=== PATIENT | male | born 1970 | race Caucasian/White ===

== ENCOUNTER → 2016-09-11 | Outpatient (CLI) | payer OTHER ==
[2015-07-30 17:35] VITALS: BP 144/80
[~2016-09-11] MED LIST: ASPI-482 PO; EMPA10TA PO; INSU100C4 SQ; INSU100V13 SQ; LEVO25TA2 PO; LOSA1TAB18 PO; OXYC-244 PO; SENN1TAB70 PO
[2016-09-11 15:33] LABS: HEMATOCRIT 50.8 % (39.0-53.0); HEMOGLOBIN 16.6 g/dL (13.0-17.5)
[2016-09-11 15:51] LABS: ALBUMIN 3.5 g/dL (3.4-5.0); CALCIUM 8.9 mg/dL (8.5-10.1); GFR 36.1; PHOSPHORUS 3.6 mg/dL (2.6-4.7); POTASSIUM 4.5 mmol/L (3.5-5.1)
[2016-09-12 07:28] LABS: PTH INTACT 107 pg/mL (15-65)
== END | disposition home or self-care (01) ==
LOC: LAB 15:05
PROVIDERS: ATTEND Nurse Practitioner Family
DX: I12.9 Hypertensive chronic kidney disease with stage 1 through stage 4 chronic kidney disease, or unspecified chronic kidney disease (principal); N18.3 Chronic kidney disease, stage 3 (moderate); E11.29 Type 2 diabetes mellitus with other diabetic kidney complication; R80.9 Proteinuria, unspecified; Z68.33 Body mass index [BMI] 33.0-33.9, adult
CPT/HCPCS: 36415; 80069; 83735; 83970; 85014; 85018

== ENCOUNTER → 2016-09-20 | Outpatient (CLI) | payer OTHER ==
[2015-07-30 17:35] VITALS: BP 144/80
[~2016-09-20] MED LIST changes: -LEVO25TA2 PO; +LEVO25TA55 PO
[2016-09-22 03:20] LABS: TOTAL SERUM CREATININE 1.52 mg/dL (0.76-1.27); TOTAL URINE CREATININE 56.5 mg/dL (Not Estab.)
== END | disposition home or self-care (01) ==
LOC: SPEC 15:58
PROVIDERS: ATTEND Nurse Practitioner Family
DX: I12.9 Hypertensive chronic kidney disease with stage 1 through stage 4 chronic kidney disease, or unspecified chronic kidney disease (principal); N18.3 Chronic kidney disease, stage 3 (moderate); E11.29 Type 2 diabetes mellitus with other diabetic kidney complication; R80.9 Proteinuria, unspecified; Z68.33 Body mass index [BMI] 33.0-33.9, adult
CPT/HCPCS: 36415; 82575; 84156

== ENCOUNTER → 2016-10-02 | Outpatient (CLI) | payer OTHER ==
[2015-07-30 17:35] VITALS: BP 144/80
--- NOTE | 2016-10-02 14:12 | KCIC ---
PROCEDURE Three-view left knee HISTORY Left knee pain intermittently for several months. Pain is medial. COMPARISON None FINDINGS Joint spaces are intact. No acute fracture or bone destruction. Vascular calcifications are noted. Patellar enthesophytes are incidentally noted. IMPRESSION No acute fracture or dislocation. Electronically signed by: Alejandro Centeno MD (October 02, 2016 14:10:49)
== END | disposition home or self-care (01) ==
LOC: KCIC 12:24
PROVIDERS: ATTEND Family Medicine
DX: M25.562 Pain in left knee (principal)
CPT/HCPCS: 73562

== ENCOUNTER → 2016-10-13 | Outpatient (CLI) | payer OTHER ==
[2015-07-30 17:35] VITALS: BP 144/80
--- NOTE | 2016-10-13 17:08 | KCIC ---
MRI left knee without contrast dated 10/13/2016 4:15 PM Indication: Left knee pain , pain on and off for several months pain anteromedial, pain Comparison: No comparison is available. Technique: Routine multiplanar multisequence imaging performed. No contrast administered. Findings: Bone marrow signal is homogeneous. No marrow edema. Articular cartilage is intact. No osteochondral defect. Mild tricompartmental hypertrophic changes. Small joint effusion. No intra-articular loose body. Small popliteal cyst with fluid bright T2 signal tracking along the margin of the medial head gastrocnemius muscle. Anterior cruciate and posterior cruciate ligaments are intact. Medial and lateral collateral complexes are intact. Iliotibial band, popliteus tendon and pes anserine complex within normal limits. Quadriceps and patellar tendon are intact. There is patchy prepatellar and superficial infrapatellar edema. There is also a small prepatellar bursal fluid collection that measures about 11 mm maximum dimension. Mild edema within the marrow of the medial patella. No abnormality of the medial or lateral retinaculum. Lateral meniscus is normal in morphology and signal. There is blunted morphology of the medial meniscal body and medial meniscal root. No articular surface tear or perimeniscal cyst. IMPRESSION: 1. Bone marrow edema of the patella with prepatellar and superficial infrapatellar edema and small prepatellar bursal fluid collection, nonspecific. This could be infectious or inflammatory or related to prior trauma. Recommend clinical correlation. 2. Mild patellar tendinosis. 3. Blunted morphology of the medial meniscal body and medial meniscal root, consistent with early free edge degenerative fraying. No articular surface meniscal tear. 4. Mild tricompartmental degenerative arthrosis. 5. Small joint effusion and small ruptured popliteal cyst. Electronically signed by: Alejandro Fink MD (10/13/2016 5:05 PM)
== END | disposition home or self-care (01) ==
LOC: KCIC MRI 15:56
PROVIDERS: ATTEND Family Medicine
DX: M71.22 Synovial cyst of popliteal space [Baker], left knee (principal); M25.462 Effusion, left knee; R60.9 Edema, unspecified
CPT/HCPCS: 73721

== ENCOUNTER 2020-03-27 19:17 | Inpatient (IN) | payer OTHER ==
[~2020-03-27] VITALS: Ht 180.3 cm; Wt 94.2 kg
[~2020-03-27 19:17] MED LIST changes: -LOSA1TAB18 PO; +LOSA1TAB25 PO; -OXYC-244 PO; +OXYC1TAB19 PO
[2020-03-27] MEDS ORDERED: HYDROcodone/APAP 5/325MG 1 TAB TABLET PO ONE (23:15)
[2020-03-27 23:20] LABS: BASO # 0.1 x10^3/uL (0.0-0.2); BASO % 1 % (0-3); EOS # 0.5 x10^3/uL (0.0-0.7); EOS % 5 % (0-3); HEMATOCRIT 50.3 % (39.0-53.0); HEMOGLOBIN 16.5 g/dL (13.0-17.5); LYMPH # 1.7 x10^3/uL (1.0-4.8); LYMPH % 17 % (24-48); MEAN CORPUSCULAR HEMOGLOBIN 29 pg (25-35); MEAN CORPUSCULAR HGB CONC 33 g/dL (31-37); MEAN CORPUSCULAR VOLUME 87 fL (79-100); MONO # 0.6 x10^3/uL (0.0-1.1); MONO % 6 % (0-9); NEUT # 7.4 x10^3/uL (1.8-7.7); NEUT % 71 % (31-73); PLATELET COUNT 300 x10^3/uL (140-400); RED BLOOD COUNT 5.76 x10^6/uL (4.30-5.70); RED CELL DISTRIBUTION WIDTH 17.2 % (11.5-14.5); WHITE BLOOD COUNT 10.4 x10^3/uL (4.0-11.0)
[2020-03-28] VITALS (13 sets, daily range): BP systolic 128–171; BP diastolic 65–109
[2020-03-28 00:01] LABS: ALBUMIN 3.4 g/dL (3.4-5.0); ALBUMIN/GLOBULIN RATIO 0.7 (1.0-1.7); CALCIUM 8.8 mg/dL (8.5-10.1); CREATININE 1.8 mg/dL (0.7-1.3); GFR 40.1; TOTAL BILIRUBIN 0.4 mg/dL (0.2-1.0); TOTAL PROTEIN 8.5 g/dL (6.4-8.2)
[2020-03-28 00:03] LABS: POTASSIUM 6.5 mmol/L (3.5-5.1)
--- NOTE | 2020-03-28 00:09 | ED.ADGEN ---
Past Medical History Past Medical History: Diabetes-Type I, Renal Disease Past Surgical History: No Surgical History Smoking Status: Never Smoker Alcohol Use: None General Adult EDM: Chief Complaint: WOUND CHECK HPI: HPI: Patient is a 49 year old AA male, accompanied by his , who presents emergency department with concerns of pain, redness, and warmth in his right index finger that is increased over the last 3 days. He reports that the pain now radiates from the tip of his finger all the way to the palm of his hand. Patient states he has been seeing the wound care center for a wound to the lateral distal end of his right index finger for the last 8 weeks. Patient states he last took oral antibiotics over a month ago for the infection. He states that the wound care doctor has been having him apply a medication to help soften the wound area. He denies any fever, cough, shortness of breath, nausea, vomiting, diarrhea, abdominal pain, body aches, or fatigue. He denies any decreased sensation, numbness, or tingling in the affected hand. Patient reports that he has noticed increased areas of lightening skin to his scalp, face and his right hand. Currently rates his pain a 5 out of 10 on the pain scale, he denies any alleviating factors, he states that the pain becomes excruciating if the area is touched or if he moves his finger. Review of Systems: Review of Systems: Complete ROS is negative unless otherwise noted in HPI. Current Medications: Current Medications Medications (Trade) Dose Ordered Sig/[facility] Start Time Stop Time Status Last Admin Dose Admin Acetaminophen/ Hydrocodone Bitart (Lortab 5/325) 1 tab 1X ONCE 03/27/20 23:15 03/27/20 23:16 DC 03/27/20 23:04 1 TAB Vancomycin HCl (Vanco Per Pharmacy) 1 each PRN DAILY PRN 03/28/20 00:15 Allergies: Allergies: Allergies Coded Allergies Type Severity Reaction Last Updated Verified GINETTE Inhibitors Allergy Intermediate Unknown 07/30/15 Yes I S O L A T I O N *CONTACT* Allergy Unknown 08/02/15 Yes Physical Exam: PE: See Above Constitutional: Well developed, well nourished, no acute distress, non-toxic appearance. [] HENT: Normocephalic, atraumatic, bilateral external ears normal, nose normal. [] Eyes: PERRLA, EOMI, conjunctiva normal, no discharge. [] Neck: Normal range of motion, no stridor. [] Cardiovascular:Heart rate regular rhythm, no murmur [] Lungs & Thorax: Respirations even and unlabored, no retractions, no respiratory distress Skin: Warm, dry; 0.5 cm diameter wound noted to the lateral distal end of the second digit of the right hand with a central area of necrosis, no drainage, there is localized erythema and warmth to the second digit of the left hand, cap refill less than 3 seconds Extremities: Right hand: Tenderness to palpation from the tip of the index finger to the base of the right thumb, pain with extension and flexion of the second digit, no obvious deformity, no crepitus, no cyanosis, no clubbing, 1+ edema to index finger Neurologic: Alert and oriented X 3, normal motor function, normal sensory function, no focal deficits noted. [] Psychologic: Affect normal, judgement normal, mood normal. [] Current Patient Data: Labs: Laboratory Tests Test 03/27/20 23:10 03/27/20 23:25 White Blood Count 10.4 x10^3/uL (4.0-11.0) Red Blood Count 5.76 x10^6/uL (4.30-5.70) H Hemoglobin 16.5 g/dL (13.0-17.5) Hematocrit 50.3 % (39.0-53.0) Mean Corpuscular Volume 87 fL (79-100) Mean Corpuscular Hemoglobin 29 pg (25-35) Mean Corpuscular Hemoglobin Concent 33 g/dL (31-37) Red Cell Distribution Width 17.2 % (11.5-14.5) H Platelet Count 300 x10^3/uL (140-400) Neutrophils (%) (Auto) 71 % (31-73) Lymphocytes (%) (Auto) 17 % (24-48) L Monocytes (%) (Auto) 6 % (0-9) Eosinophils (%) (Auto) 5 % (0-3) H Basophils (%) (Auto) 1 % (0-3) Neutrophils # (Auto) 7.4 x10^3/uL (1.8-7.7) Lymphocytes # (Auto) 1.7 x10^3/uL (1.0-4.8) Monocytes # (Auto) 0.6 x10^3/uL (0.0-1.1) Eosinophils # (Auto) 0.5 x10^3/uL (0.0-0.7) Basophils # (Auto) 0.1 x10^3/uL (0.0-0.2) Lactic Acid Level 0.3 mmol/L (0.4-2.0) L Sodium Level 137 mmol/L (136-145) Potassium Level 6.5 mmol/L (3.5-5.1) *H Chloride Level 108 mmol/L (98-107) H Carbon Dioxide Level 15 mmol/L (21-32) L Anion Gap 14 (6-14) Blood Urea Nitrogen 43 mg/dL (8-26) H Creatinine 1.8 mg/dL (0.7-1.3) H Estimated GFR (Cockcroft-Gault) 40.1 BUN/Creatinine Ratio 24 (6-20) H Glucose Level 134 mg/dL (70-99) H Calcium Level 8.8 mg/dL (8.5-10.1) Total Bilirubin 0.4 mg/dL (0.2-1.0) Aspartate Amino Transferase (AST) 22 U/L (15-37) Alanine Aminotransferase (ALT) 27 U/L (16-63) Alkaline Phosphatase 73 U/L (46-116) Total Protein 8.5 g/dL (6.4-8.2) H Albumin 3.4 g/dL (3.4-5.0) Albumin/Globulin Ratio 0.7 (1.0-1.7) L Laboratory Tests 03/27/20 23:10 Laboratory Tests 03/27/20 23:25 Vital Signs: Vital Signs Date Time Temp Pulse Resp B/P (MAP) Pulse Ox O2 Delivery O2 Flow Rate FiO2 03/27/20 23:04 Room Air 03/27/20 22:15 98.6 88 12 135/68 (90) 98 98.6 EKG: EK-sinus rhythm, rate 83, no STEMI, mildly peaked T waves read by Dr. Shea [] Heart Score: Risk Factors: Risk Factors: DM, Current or recent (<one month) smoker, HTN, HLP, family history of CAD, obesity. Risk Scores: Score 0 - 3: 2.5% MACE over next 6 weeks - Discharge Home Score 4 - 6: 20.3% MACE over next 6 weeks - Admit for Clinical Observation Score 7 - 10: 72.7% MACE over next 6 weeks - Early Invasive Strategies Radiology/Procedures: Radiology/Procedures: [][facility] [address] [place] [address] IMAGING REPORT Signed PATIENT: CORIE CHANG ACCOUNT: [id number] : 1970 LOCATION: [address] [place] [address] AGE: 49 SEX: M EXAM STATUS: ADM IN ORD. PHYSICIAN: TOÑITO GUNTER APRN REASON: index finger swelling, erythema, warmth wound x8 weeks PROCEDURE: HAND RIGHT 3V Study: CR HAND RIGHT 3V Indication: Index finger swelling. Erythema. Comparison: 01/28/2020 Findings: No acute fracture or malalignment. No focal erosion or periostitis. Maintained joint spaces. Vascular calcifications. Mildly irregular soft tissues at the far distal index finger but less noticeable from the 01/28/2020 comparison. No retained radiopaque foreign body. Impression: No acute osseous abnormality. Specifically, no evidence for osteomyelitis in the setting of reported swelling/erythema of the index finger. Electronically signed by: LATRICIA TONY MD (03/28/2020 12:42 AM) [id number] DICTATED and SIGNED BY: LATRICIA TONY MD DATE: 03/28/2041 Course & Med Decision Making: Course & Med Decision Making Pertinent Labs and Imaging studies reviewed. (See chart for details) [id number] to admit this patient to the hospitalist for right hand cellulitis and hyperkalemia is made. Will admit the patient to med telemetry. Report given to Dr. Shea who will notify hospitalist of the patient admission. I have personally interviewed and examined patient. All charts, labs and imaging studies were reviewed. I agreed with the PA/[employer]'s findings, exam and plan of care Patient has erythema to the right index finger. The fingers do not appear to have a sausagelike appearance. The patient does have some pain with range of motion and palpation more proximally on the finger. I do not think he is got flexor tenosynovitis at this time but I think he needs IV antibiotics so that he does not progress. Patient be admitted to Dr. Naqvi. Patient also has hyperkalemia which has been treated with a standard cocktail. [] Dragon Disclaimer: Dragon Disclaimer: This electronic medical record was generated, in whole or in part, using a voice recognition dictation system. Departure Departure Impression: Primary Impression: Cellulitis of right hand Additional Impression: Hyperkalemia Disposition: ADMITTED INPT THIS HOSP Admitting Physician: ALEX (Driss) Condition: STABLE Referrals: KASSY QUIJANO MD (PCP) Problem Qualifiers TOÑITO GUNTER APRN Mar 28, 2020 00:09 KAMILA SHEA MD Mar 28, 2020 04:57
[2020-03-28] MEDS ORDERED: VANCOMYCIN PER PHARMACY MC PRN (00:15)
[2020-03-28] MEDS ORDERED: IV NORMAL SALINE 1000ML BAG 1,000 ML IV ONE (00:30)
[2020-03-28] MEDS ORDERED: VANCOMYCIN 2 GM in IV NORMAL SALINE 500ML BAG 500 ML IV ONE (00:30)
[2020-03-28] MEDS ORDERED: DEXTROSE 50% 25 GM / 50ML DISP.SYRIN. IV ONE (00:30)
[2020-03-28] MEDS ORDERED: INSULIN REGULAR 100 UNIT/ML 3ML VIAL. IV ONE (00:30)
[2020-03-28] MEDS ORDERED: CALCIUM GLUCONATE 1,000 MG/10 ML VIAL. IVP ONE (00:30)
--- NOTE | 2020-03-28 00:46 | RAD ---
Study: CR HAND RIGHT 3V Indication: Index finger swelling. Erythema. Comparison: 01/28/2020 Findings: No acute fracture or malalignment. No focal erosion or periostitis. Maintained joint spaces. Vascular calcifications. Mildly irregular soft tissues at the far distal index finger but less noticeable from the 01/28/2020 comparison. No retained radiopaque foreign body. Impression: No acute osseous abnormality. Specifically, no evidence for osteomyelitis in the setting of reported swelling/erythema of the index finger. Electronically signed by: LATRICIA TONY MD (03/28/2020 12:42 AM) [id number]
[2020-03-28] MEDS ORDERED: HYDROcodone/APAP 7.5/325MG 1 TAB TABLET PO ONE (02:00)
--- NOTE | 2020-03-28 05:03 | NUR ---
Pharmacy Vancomycin Dosing Note S:Consulted to monitor and dose vancomycin started 03/28/20. O:CORIE CHANG is a 49 year old M with Cellulitis . Height: 5 feet, 11 inches Weight: 91.8 kg Kinde Body Weight: 75.30 Adjusted Body Weight: 81.86 Dosing Weight: Actual Other Antibiotics: LABS: Last BUN: 43 Last Creatinine: 1.8 Creatinine Clearance: 57 mL/min Last WBC: 10.4 Last Procalcitonin: Tmax (past 24 hours): Microbiology: I/O: Drug Levels: Last level: on at Last dose given 03/28/20 at 0030 Vancomycin Dosing: Loading Dose: 2000 mg x1 Dosing Weight: Actual Target Trough: 10-20 A: Based on: WT AND CRCL P: 1. Begin Vancomycin 1500 mg IV q24h 2. Follow up Trough level on 03/29/20 at 2230 3. Pharmacy will continue to monitor, follow and adjust therapy as needed. FRANCES MAHAJAN RPH, 03/28/20 0503 Signed: 03/28/20 at 0504 by FRANCES MAHAJAN RPH PHA
[2020-03-28] MEDS ORDERED: DEXTROSE 50% 25 GM / 50ML DISP.SYRIN. IV PRN (07:45)
[2020-03-28] MEDS: INSULIN LISPRO 300 UNITS/3 ML VIAL. SQ SCH ×3 (08:00→16:42)
[2020-03-28 09:54] LABS: CALCIUM 8.8 mg/dL (8.5-10.1); CREATININE 1.6 mg/dL (0.7-1.3)
[2020-03-28 10:00] LABS: POTASSIUM 6.2 mmol/L (3.5-5.1)
[2020-03-28] MEDS ORDERED: SODIUM POLYSTYRENE SULFON/SORB 15 GM/60 ML ORAL.SUSP. PO ONE (10:30)
[2020-03-28] MEDS ORDERED: DIPH,PERTUSS(ACELL),TET VAC/PF 0.5 ML SYRINGE. VAX IM ONE (10:30)
--- NOTE | 2020-03-28 10:39 | PDOC1 ---
History and Physical Date of Admission Date of Admission DATE: 03/28/20 TIME: 10:37 Identification/Chief Complaint Chief Complaint SEEN IN ER WITH SEVERE CELLULITIS OF DIGIT 49 year old AA male, accompanied by his , who presents emergency department with concerns of pain, redness, and warmth in his right index finger that is increased over the last 3 days. He reports that the pain now radiates from the tip of his finger all the way to the palm of his hand. Patient states he has been seeing the wound care center for a wound to the lateral distal end of his right index finger for the last 8 weeks. Patient states he last took oral antibiotics over a month ago for the infection. He states that the wound care doctor has been having him apply a medication to help soften the wound area. He denies any fever, cough, shortness of breath, nausea, vomiting, diarrhea, abdominal pain, body aches, or fatigue. He denies any decreased sensation, numbness, or tingling in the affected hand. Patient reports that he has noticed increased areas of lightening skin to his scalp, face and his right hand. Currently rates his pain a 5 out of 10 on the pain scale, he denies any alleviating factors, he states that the pain becomes excruciating if the area is touched or if he moves his finger. 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[employer] [facility] Past Medical History Past Medical History Past Medical History Past Medical History: Diabetes-Type I, Renal Disease Past Surgical History: No Surgical History Smoking Status: Never Smoker Alcohol Use: None FHX HTN Rheumatologic: No pertinent hx Infectious disease: No pertinent hx Renal/: No pertinent hx Family History Family History: Hypertension Social History Smoke: No ALCOHOL: none Drugs: None Current Problem List Problem List Problems Medical Problems: (1) Hyperkalemia Status: Acute Current Medications Current Medications Current Medications Acetaminophen/ Hydrocodone Bitart (Lortab 5/325) 1 tab 1X ONCE PO Last administered on 03/27/20at 23:04; Start 03/27/20 at 23:15; Stop 03/27/20 at 23:16; Status DC Vancomycin HCl (Vanco Per Pharmacy) 1 each PRN DAILY PRN MC SEE COMMENTS Last administered on 03/28/20at 05:03; Start 03/28/20 at 00:15 Vancomycin HCl 2 gm/Sodium Chloride 500 ml @ 250 mls/hr 1X ONCE IV Last administered on 03/28/20at 00:34; Start 03/28/20 at 00:30; Stop 03/28/20 at 02:29; Status DC Sodium Chloride 1,000 ml @ 1,000 mls/hr 1X ONCE IV Last administered on 03/28/20at 00:30; Start 03/28/20 at 00:30; Stop 03/28/20 at 01:29; Status DC Dextrose (Dextrose 50%-Water Syringe) 50 gm 1X ONCE IV Last administered on 03/28/20at 00:33; Start 03/28/20 at 00:30; Stop 03/28/20 at 00:31; Status DC Calcium Gluconate (Calcium Gluconate) 1,000 mg 1X ONCE IVP Last administered on 03/28/20at 00:33; Start 03/28/20 at 00:30; Stop 03/28/20 at 00:31; Status DC Insulin Human Regular (HumuLIN R VIAL) 10 unit 1X ONCE IV Last administered on 03/28/20at 00:33; Start 03/28/20 at 00:30; Stop 03/28/20 at 00:31; Status DC Acetaminophen/ Hydrocodone Bitart (Lortab 7.5/325) 1 tab 1X ONCE PO Last administered on 03/28/20at 04:24; Start 03/28/20 at 02:00; Stop 03/28/20 at 02:01; Status DC Vancomycin HCl 1.5 gm/Sodium Chloride 500 ml @ 250 mls/hr Q24H IV ; Start 03/28/20 at 23:00 Vancomycin HCl (Vancomycin Trough Level) 1 each 1X ONCE MC ; Start 03/29/20 at 22:30; Stop 03/29/20 at 22:31 Insulin Human Lispro (HumaLOG) 0-7 UNITS TIDWMEALS SQ ; Start 03/28/20 at 08:00 Dextrose (Dextrose 50%-Water Syringe) 12.5 gm PRN Q15MIN PRN IV SEE COMMENTS; Start 03/28/20 at 07:45 Sodium Polystyrene Sulfonate (Kayexalate) 30 gm 1X ONCE PO ; Start 03/28/20 at 10:30; Stop 03/28/20 at 10:35; Status DC Diphtheria/ Tetanus/Acell Pertussis (ADACEL TDap SYRINGE) 0.5 ml ONCE ONCE VAX IM ; Start 03/28/20 at 10:30; Stop 03/28/20 at 10:35; Status DC Aspirin (Ecotrin) 81 mg DAILY PO ; Start 03/28/20 at 11:00 Levothyroxine Sodium (Synthroid) 25 mcg DAILY06 PO ; Start 03/28/20 at 10:30 Losartan Potassium (Cozaar) 100 mg DAILY PO ; Start 03/28/20 at 11:00 Hydrochlorothiazide (Microzide) 12.5 mg DAILY PO ; Start 03/28/20 at 11:00 Active Scripts Active Reported Aspir 81 (Aspirin) 81 Mg Tablet.dr 1 Tab PO DAILY Jardiance (Empagliflozin) 10 Mg Tablet 10 Mg PO Synthroid (Levothyroxine Sodium) 25 Mcg Tablet 1 Tab PO DAILY Losartan-Hctz 100-12.5 Mg Tab (Losartan/Hydrochlorothiazide) 1 Each Tablet 1 Tab PO DAILY Allergies Allergies: Coded Allergies: GINETTE Inhibitors (Verified Allergy, Intermediate, Unknown, 07/30/15) cough I S O L A T I O N *CONTACT* (Verified Allergy, Unknown, 08/02/15) mrsa + ROS Review of System 14 PT ROS OTHERWISE NEG General: No: Chills, Night Sweats, Fatigue, Malaise, Appetite, Other PSYCHOLOGICAL ROS: No: Anxiety, Behavioral Disorder, Concentration difficultie, Decreased libido, Depression, Disorientation, Hallucinations, Hostility, Irritablity, Memory difficulties, Mood Swings, Obsessive thoughts, Physical abuse, Sexual abuse, Sleep disturbances, Suicidal ideation, Other Eyes: No Blurry vision, No Decreased vision, No Double vision, No Dry eyes, No Excessive tearing, No Eye Pain, No Itchy Eyes, No Loss of vision, No Photophobia, No Scotomata, No Uses contacts, No Uses glasses, No Other HEENT: No: Heacaches, Visual Changes, Hearing change, Nasal congestion, Nasal discharge, Oral lesions, Sinus pain, Sore Throat, Epistaxis, Sneezing, Snoring, Tinnitus, Vertigo, Vocal changes, Other Hematological and Lymphatic: No: Bleeding Problems, Blood Clots, Blood Transfusions, Brusing, Night Sweats, Pallor, Swollen Lymph Nodes, Other ENDOCRINE: YES: Skin Changes Breast: No New/Changing Breast Lumps, No Nipple changes, No Nipple discharge, No Other Respiratory: No: Cough, Hemoptysis, Orthopnea, Pleuritic Pain, Shortness of breath, SOB with excertion, Sputum Changes, Stridor, Tachypnea, Wheezing, Other Cardiovascular: No Chest Pain, No Palpitations, No Orthopnea, No Paroxysmal Noc. Dyspnea, No Edema, No Lt Headedness, No Other Genitourinary: No Dysuria, No Frequency, No Incontinence, No Hematuria, No Retention, No Discharge, No Urgency, No Pain, No Flank Pain, No Other, No , No , No , No , No , No , No Musculoskeletal: Yes Joint Pain, Yes Joint Stiffness, Yes Joint Swelling; No Gait Disturbance, No Muscle Pain, No Muscular Weakness, No Pain In:, No Swelling In:, No Other Neurological: No Behavorial Changes, No Bowel/Bladder ControlChng, No Confusion, No Dizziness, No Gait Disturbance, No Headaches, No Impaired Coord/balance, No Memory Loss, No Numbness/Tingling, No Seizures, No Speech Problems, No Tremors, No Visual Changes, No Weakness, No Other Skin: Yes Rash, Yes Skin Lesion Changes; No Dry Skin, No Eczema, No Hair Changes, No Lumps, No Mole Changes, No Mottling, No Nail Changes, No Pruritus, No Other, No Acne Physical Exam Physical Exam Constitutional: Well developed, well nourished, no acute distress, non-toxic appearance. [] HENT: Normocephalic, atraumatic, bilateral external ears normal, nose normal. [] Eyes: PERRLA, EOMI, conjunctiva normal, no discharge. [] Neck: Normal range of motion, no stridor. [] Cardiovascular:Heart rate regular rhythm, no murmur [] Lungs & Thorax: Respirations even and unlabored, no retractions, no respiratory distress Skin: Warm, dry; 0.5 cm diameter wound noted to the lateral distal end of the second digit of the right hand with a central area of necrosis, no drainage, there is localized erythema and warmth to the second digit of the left hand, cap refill less than 3 seconds Extremities: Right hand: Tenderness to palpation from the tip of the index finger to the base of the right thumb, pain with extension and flexion of the second digit, no obvious deformity, no crepitus, no cyanosis, no clubbing, 1+ edema to index finger Neurologic: Alert and oriented X 3, normal motor function, normal sensory function, no focal deficits noted. [] Psychologic: Affect normal, judgment normal, mood normal. [] General: Alert, Oriented X3, Cooperative, mild distress HEENT: Atraumatic, PERRLA, EOMI, Mucous membr. moist/pink Lungs: Clear to auscultation, Normal air movement Heart: RRR, no thrills, no rubs, no gallops Breasts: Not examined Abdomen: Normal bowel sounds, Soft Rectal Exam: not examined PELVIC: Examination not indicated Extremities: No cyanosis Neuro: Normal speech, Cranial nerves 3-12 NL Psych/Mental Status: Mental status NL, Mood NL Vitals Vitals Vital Signs Date Time Temp Pulse Resp B/P (MAP) Pulse Ox O2 Delivery O2 Flow Rate FiO2 03/28/20 08:00 Room Air 03/28/20 07:00 97.9 91 19 159/91 (113) 97 97.9 Labs Labs Laboratory Tests Test 03/27/20 23:10 03/27/20 23:25 03/28/20 07:22 03/28/20 09:30 White Blood Count 10.4 x10^3/uL (4.0-11.0) Red Blood Count 5.76 x10^6/uL (4.30-5.70) Hemoglobin 16.5 g/dL (13.0-17.5) Hematocrit 50.3 % (39.0-53.0) Mean Corpuscular Volume 87 fL (79-100) Mean Corpuscular Hemoglobin 29 pg (25-35) Mean Corpuscular Hemoglobin Concent 33 g/dL (31-37) Red Cell Distribution Width 17.2 % (11.5-14.5) Platelet Count 300 x10^3/uL (140-400) Neutrophils (%) (Auto) 71 % (31-73) Lymphocytes (%) (Auto) 17 % (24-48) Monocytes (%) (Auto) 6 % (0-9) Eosinophils (%) (Auto) 5 % (0-3) Basophils (%) (Auto) 1 % (0-3) Neutrophils # (Auto) 7.4 x10^3/uL (1.8-7.7) Lymphocytes # (Auto) 1.7 x10^3/uL (1.0-4.8) Monocytes # (Auto) 0.6 x10^3/uL (0.0-1.1) Eosinophils # (Auto) 0.5 x10^3/uL (0.0-0.7) Basophils # (Auto) 0.1 x10^3/uL (0.0-0.2) Lactic Acid Level 0.3 mmol/L (0.4-2.0) Sodium Level 137 mmol/L (136-145) 138 mmol/L (136-145) Potassium Level 6.5 mmol/L (3.5-5.1) 6.2 mmol/L (3.5-5.1) Chloride Level 108 mmol/L (98-107) 108 mmol/L (98-107) Carbon Dioxide Level 15 mmol/L (21-32) 17 mmol/L (21-32) Anion Gap 14 (6-14) 13 (6-14) Blood Urea Nitrogen 43 mg/dL (8-26) 39 mg/dL (8-26) Creatinine 1.8 mg/dL (0.7-1.3) 1.6 mg/dL (0.7-1.3) Estimated GFR (Cockcroft-Gault) 40.1 46.0 BUN/Creatinine Ratio 24 (6-20) Glucose Level 134 mg/dL (70-99) 115 mg/dL (70-99) Calcium Level 8.8 mg/dL (8.5-10.1) 8.8 mg/dL (8.5-10.1) Total Bilirubin 0.4 mg/dL (0.2-1.0) Aspartate Amino Transf (AST/SGOT) 22 U/L (15-37) Alanine Aminotransferase (ALT/SGPT) 27 U/L (16-63) Alkaline Phosphatase 73 U/L (46-116) Total Protein 8.5 g/dL (6.4-8.2) Albumin 3.4 g/dL (3.4-5.0) Albumin/Globulin Ratio 0.7 (1.0-1.7) Glucose (Fingerstick) 107 mg/dL (70-99) Laboratory Tests Test 03/27/20 23:10 03/27/20 23:25 03/28/20 07:22 03/28/20 09:30 White Blood Count 10.4 x10^3/uL (4.0-11.0) Red Blood Count 5.76 x10^6/uL (4.30-5.70) Hemoglobin 16.5 g/dL (13.0-17.5) Hematocrit 50.3 % (39.0-53.0) Mean Corpuscular Volume 87 fL (79-100) Mean Corpuscular Hemoglobin 29 pg (25-35) Mean Corpuscular Hemoglobin Concent 33 g/dL (31-37) Red Cell Distribution Width 17.2 % (11.5-14.5) Platelet Count 300 x10^3/uL (140-400) Neutrophils (%) (Auto) 71 % (31-73) Lymphocytes (%) (Auto) 17 % (24-48) Monocytes (%) (Auto) 6 % (0-9) Eosinophils (%) (Auto) 5 % (0-3) Basophils (%) (Auto) 1 % (0-3) Neutrophils # (Auto) 7.4 x10^3/uL (1.8-7.7) Lymphocytes # (Auto) 1.7 x10^3/uL (1.0-4.8) Monocytes # (Auto) 0.6 x10^3/uL (0.0-1.1) Eosinophils # (Auto) 0.5 x10^3/uL (0.0-0.7) Basophils # (Auto) 0.1 x10^3/uL (0.0-0.2) Lactic Acid Level 0.3 mmol/L (0.4-2.0) Sodium Level 137 mmol/L (136-145) 138 mmol/L (136-145) Potassium Level 6.5 mmol/L (3.5-5.1) 6.2 mmol/L (3.5-5.1) Chloride Level 108 mmol/L (98-107) 108 mmol/L (98-107) Carbon Dioxide Level 15 mmol/L (21-32) 17 mmol/L (21-32) Anion Gap 14 (6-14) 13 (6-14) Blood Urea Nitrogen 43 mg/dL (8-26) 39 mg/dL (8-26) Creatinine 1.8 mg/dL (0.7-1.3) 1.6 mg/dL (0.7-1.3) Estimated GFR (Cockcroft-Gault) 40.1 46.0 BUN/Creatinine Ratio 24 (6-20) Glucose Level 134 mg/dL (70-99) 115 mg/dL (70-99) Calcium Level 8.8 mg/dL (8.5-10.1) 8.8 mg/dL (8.5-10.1) Total Bilirubin 0.4 mg/dL (0.2-1.0) Aspartate Amino Transf (AST/SGOT) 22 U/L (15-37) Alanine Aminotransferase (ALT/SGPT) 27 U/L (16-63) Alkaline Phosphatase 73 U/L (46-116) Total Protein 8.5 g/dL (6.4-8.2) Albumin 3.4 g/dL (3.4-5.0) Albumin/Globulin Ratio 0.7 (1.0-1.7) Glucose (Fingerstick) 107 mg/dL (70-99) Images Images Study: CR HAND RIGHT 3V Indication: Index finger swelling. Erythema. Comparison: 01/28/2020 Findings: No acute fracture or malalignment. No focal erosion or periostitis. Maintained joint spaces. Vascular calcifications. Mildly irregular soft tissues at the far distal index finger but less noticeable from the 01/28/2020 comparison. No retained radiopaque foreign body. Impression: No acute osseous abnormality. Specifically, no evidence for osteomyelitis in the setting of reported swelling/erythema of the index finger. Electronically signed by: LATRICIA TONY MD (03/28/2020 12:42 AM) [id number] DICTATED and SIGNED BY: LATRICIA TONY MD VTE Prophylaxis Ordered VTE Prophylaxis Devices: No VTE Pharmacological Prophylaxi: Yes Assessment/Plan Assessment/Plan Impression: CELLULITIS OF FINGER, COMPLICATED Failure of outpatient treatment No RADIOGRAPHIC acute osseous abnormality. no evidence for osteomyelitis of r eported swelling/erythema of index finger. DIABETES DILLON metabolic acidosis hyperkalemia CKD PLAN admit CVC BED BLOOD CULTURE ID CONSULT ORTHO CONSULT Nephrology consult dvt prophylaxis iv fluid support avoid nephrotoxins BMP TODAY AT 1500 Kayexylate 30 mg po now x 1 A1C NPO for OR TODAY IV DAPTOMYCIN 77 min pt exam, chart review, > 50% of time spent with exam, chart review, pt care coordination Justifications for Admission Other Justification DON BAKER MD Mar 28, 2020 10:39
[2020-03-28] MEDS ORDERED: LORazepam 0.5 MG TABLET PO PRN (10:45)
[2020-03-28] MEDS ORDERED: cloNIDine HCL 0.1 MG TABLET PO PRN (10:45)
[2020-03-28] MEDS ORDERED: DOCUSATE SODIUM 100 MG CAPSULE. PO PRN (10:45)
[2020-03-28] MEDS ORDERED: 0.9 % SODIUM CHLORIDE 10 ML DISP.SYRIN. IV PRN (10:45)
[2020-03-28] MEDS ORDERED: guaiFENesin ORAL 200 MG/10 ML LIQUID. PO PRN (10:45)
[2020-03-28] MEDS ORDERED: ALBUTEROL SULFATE 2.5 MG/3 ML NEBU. NEB PRN (10:45)
[2020-03-28] MEDS ORDERED: MAG HYDROX/ALUMINUM HYD/SIMETH 30 ML ORAL.SUSP PO PRN (10:45)
[2020-03-28] MEDS ORDERED: SODIUM PHOSPHATES 19/7GM 133 ML ENEMA. PR PRN (10:45)
[2020-03-28] MEDS ORDERED: ONDANSETRON PF 4 MG/2 ML VIAL. IV PRN (10:45)
[2020-03-28] MEDS ORDERED: hydroCHLOROthiazide 12.5 MG CAPSULE PO SCH (11:00)
[2020-03-28] MEDS ORDERED: LOSARTAN POTASSIUM 50 MG TABLET. PO SCH (11:00)
[2020-03-28] MEDS: IV NORMAL SALINE 1000ML BAG 1,000 ML IV SCH ×2 (11:53→20:46)
[2020-03-28] MEDS: ASPIRIN ENTERIC COATED 81 MG TABLET.DR. PO SCH (11:56)
[2020-03-28] MEDS: ENOXAPARIN 40 MG/0.4 ML SYRINGE. SQ SCH (12:00)
--- NOTE | 2020-03-28 12:13 | PDOC2 ---
CONSULT Date of Consult Date of Consult DATE: 03/28/20 TIME: 12:13 Reason for Consult Reason for Consult: DILLON Source Source: Chart review, Patient History of Present Illness Reason for Visit: Patient is a 49 year old AA male, accompanied by his , who presents emergency department with concerns of pain, redness, and warmth in his right index finger that is increased over the last 3 days. He reports that the pain now radiates from the tip of his finger all the way to the palm of his hand. Patient states he has been seeing the wound care center for a wound to the lateral distal end of his right index finger for the last 8 weeks. Patient states he last took oral antibiotics over a month ago for the infection. He states that the wound care doctor has been having him apply a medication to help soften the wound area. He denies any fever, cough, shortness of breath, nausea, vomiting, diarrhea, abdominal pain, body aches, or fatigue. He denies any decreased sensation, numbness, or tingling in the affected hand. Patient reports that he has noticed increased areas of lightening skin to his scalp, face and his right hand. Currently rates his pain a 5 out of 10 on the pain scale, he denies any alleviating factors, he states that the pain becomes excruciating if the area is touched or if he moves his finger He has a Dx of CKD and thinks he has seen Dr. Morgan in the past but did not follow up. Taked Ibuprofen prn , took couple yesterday . Denies any urinary complaints. Not on K supplements or Aldactone. Has been on Losartan for long time Denies any LE edema. No Hx of renal calculus Past Medical History Past Medical History Past Medical History: Diabetes-Type I, Renal Disease Rheumatologic: No pertinent hx Family History Family History Hypertension Family History: Hypertension Social History Social History Smoke: No ALCOHOL: none No ALCOHOL: none Drugs: None Current Problem List Problem List Problems Medical Problems: (1) Hyperkalemia Status: Acute Current Medications Current Medications Current Medications Acetaminophen/ Hydrocodone Bitart (Lortab 5/325) 1 tab 1X ONCE PO Last administered on 03/27/20at 23:04; Start 03/27/20 at 23:15; Stop 03/27/20 at 23:16; Status DC Vancomycin HCl (Vanco Per Pharmacy) 1 each PRN DAILY PRN MC SEE COMMENTS Last administered on 03/28/20at 05:03; Start 03/28/20 at 00:15 Vancomycin HCl 2 gm/Sodium Chloride 500 ml @ 250 mls/hr 1X ONCE IV Last administered on 03/28/20at 00:34; Start 03/28/20 at 00:30; Stop 03/28/20 at 02:29; Status DC Sodium Chloride 1,000 ml @ 1,000 mls/hr 1X ONCE IV Last administered on 03/28/20at 00:30; Start 03/28/20 at 00:30; Stop 03/28/20 at 01:29; Status DC Dextrose (Dextrose 50%-Water Syringe) 50 gm 1X ONCE IV Last administered on 03/28/20at 00:33; Start 03/28/20 at 00:30; Stop 03/28/20 at 00:31; Status DC Calcium Gluconate (Calcium Gluconate) 1,000 mg 1X ONCE IVP Last administered on 03/28/20at 00:33; Start 03/28/20 at 00:30; Stop 03/28/20 at 00:31; Status DC Insulin Human Regular (HumuLIN R VIAL) 10 unit 1X ONCE IV Last administered on 03/28/20at 00:33; Start 03/28/20 at 00:30; Stop 03/28/20 at 00:31; Status DC Acetaminophen/ Hydrocodone Bitart (Lortab 7.5/325) 1 tab 1X ONCE PO Last administered on 03/28/20at 04:24; Start 03/28/20 at 02:00; Stop 03/28/20 at 02:01; Status DC Vancomycin HCl 1.5 gm/Sodium Chloride 500 ml @ 250 mls/hr Q24H IV ; Start 03/28/20 at 23:00 Vancomycin HCl (Vancomycin Trough Level) 1 each 1X ONCE MC ; Start 03/29/20 at 22:30; Stop 03/29/20 at 22:31 Insulin Human Lispro (HumaLOG) 0-7 UNITS TIDWMEALS SQ ; Start 03/28/20 at 08:00 Dextrose (Dextrose 50%-Water Syringe) 12.5 gm PRN Q15MIN PRN IV SEE COMMENTS; Start 03/28/20 at 07:45 Sodium Polystyrene Sulfonate (Kayexalate) 30 gm 1X ONCE PO Last administered on 03/28/20at 10:43; Start 03/28/20 at 10:30; Stop 03/28/20 at 10:35; Status DC Diphtheria/ Tetanus/Acell Pertussis (ADACEL TDap SYRINGE) 0.5 ml ONCE ONCE VAX IM Last administered on 03/28/20at 11:55; Start 03/28/20 at 10:30; Stop 03/28/20 at 10:35; Status DC Aspirin (Ecotrin) 81 mg DAILY PO Last administered on 03/28/20at 11:56; Start 03/28/20 at 11:00 Levothyroxine Sodium (Synthroid) 25 mcg DAILY06 PO ; Start 03/28/20 at 10:30 Losartan Potassium (Cozaar) 100 mg DAILY PO Last administered on 03/28/20at 11:55; Start 03/28/20 at 11:00 Hydrochlorothiazide (Microzide) 12.5 mg DAILY PO Last administered on 03/28/20at 11:55; Start 03/28/20 at 11:00 Sodium Chloride (Normal Saline Flush) 3 ml QSHIFT PRN IV AFTER MEDS AND BLOOD DRAWS; Start 03/28/20 at 10:45 Sodium Chloride 1,000 ml @ 100 mls/hr Q10H IV Last administered on 03/28/20at 11:53; Start 03/28/20 at 10:45 Ondansetron HCl (Zofran) 4 mg PRN Q4HRS PRN IV NAUSEA/VOMITING; Start 03/28/20 at 10:45 Al Hydroxide/Mg Hydroxide (Mylanta Plus Xs) 30 ml PRN DAILY PRN PO HEARTBURN / GAS; Start 03/28/20 at 10:45 Clonidine HCl (Catapres) 0.1 mg PRN Q6HRS PRN PO SBP>160 OR DBP>90; Start 03/28/20 at 10:45 Sodium Monofluorophosphate (Fleet Adult) 133 ml PRN DAILY PRN [place] CONSTIPATION; Start 03/28/20 at 10:45 Docusate Sodium (Colace) 100 mg PRN BID PRN PO HARD STOOLS; Start 03/28/20 at 10:45 Albuterol Sulfate (Ventolin Neb Soln) 2.5 mg PRN Q4HRS PRN NEB SHORTNESS OF BREATH; Start 03/28/20 at 10:45 Guaifenesin (Robitussin) 200 mg PRN Q4HRS PRN PO COUGH; Start 03/28/20 at 10:45 Lorazepam (Ativan) 0.5 mg PRN Q4HRS PRN PO ANXIETY / AGITATION; Start 03/28/20 at 10:45 Enoxaparin Sodium (Lovenox 40mg Syringe) 40 mg Q24H SQ ; Start 03/28/20 at 12:00 Active Scripts Active Reported Aspir 81 (Aspirin) 81 Mg Tablet.dr 1 Tab PO DAILY Jardiance (Empagliflozin) 10 Mg Tablet 10 Mg PO Synthroid (Levothyroxine Sodium) 25 Mcg Tablet 1 Tab PO DAILY Losartan-Hctz 100-12.5 Mg Tab (Losartan/Hydrochlorothiazide) 1 Each Tablet 1 Tab PO DAILY Allergies Allergies: Coded Allergies: GINETTE Inhibitors (Verified Allergy, Intermediate, Unknown, 07/30/15) cough I S O L A T I O N *CONTACT* (Verified Allergy, Unknown, 08/02/15) mrsa + ROS Review of System As per HPI, rest of the ROS is negative Physical Exam Physical Exam General: Alert, Oriented X3, Cooperative, No distress HEENT: Atraumatic, PERRLA, EOMI, Mucous membr. moist/pink Neck Supple Lungs: Clear to auscultation , Non labored, On RA Heart: RRR, Abdomen: Normal bowel sounds, Soft Extremities: No cyanosis, No edema Neuro: Normal speech, Cranial nerves 3-12 NL Psych/Mental Status: Mental status NL, Mood NL No Griffin, No SP or CVA tenderness Vital Signs Vital Signs Date Time Temp Pulse Resp B/P (MAP) Pulse Ox O2 Delivery O2 Flow Rate FiO2 03/28/20 11:55 90 143/90 03/28/20 10:41 98.1 18 98 Room Air 98.1 Assessment & Plan DILLON vs CKD 3 b - Likely sec to DM, HTN Present since 2016 per [facility] records , No Interval labs between 2016 and 2019 Stable renal function since , imaging was unremarkable Supportive care, strict I/O, IVF , avoid nephrotoxins HyperKalemia- Hold Losartan, Recd Kayexalate , Monitor Metabolic acidosis- monitor, may need NaHCO3 Supplements Cellulitis of Finger - No OM on Xray Diabetes HTN - Hold Losartan for now, monitor , if BP high can add Hydralazine Labs Labs Laboratory Tests Test 03/27/20 23:10 03/27/20 23:25 03/28/20 07:22 03/28/20 09:30 White Blood Count 10.4 x10^3/uL (4.0-11.0) Red Blood Count 5.76 x10^6/uL (4.30-5.70) Hemoglobin 16.5 g/dL (13.0-17.5) Hematocrit 50.3 % (39.0-53.0) Mean Corpuscular Volume 87 fL (79-100) Mean Corpuscular Hemoglobin 29 pg (25-35) Mean Corpuscular Hemoglobin Concent 33 g/dL (31-37) Red Cell Distribution Width 17.2 % (11.5-14.5) Platelet Count 300 x10^3/uL (140-400) Neutrophils (%) (Auto) 71 % (31-73) Lymphocytes (%) (Auto) 17 % (24-48) Monocytes (%) (Auto) 6 % (0-9) Eosinophils (%) (Auto) 5 % (0-3) Basophils (%) (Auto) 1 % (0-3) Neutrophils # (Auto) 7.4 x10^3/uL (1.8-7.7) Lymphocytes # (Auto) 1.7 x10^3/uL (1.0-4.8) Monocytes # (Auto) 0.6 x10^3/uL (0.0-1.1) Eosinophils # (Auto) 0.5 x10^3/uL (0.0-0.7) Basophils # (Auto) 0.1 x10^3/uL (0.0-0.2) Lactic Acid Level 0.3 mmol/L (0.4-2.0) Sodium Level 137 mmol/L (136-145) 138 mmol/L (136-145) Potassium Level 6.5 mmol/L (3.5-5.1) 6.2 mmol/L (3.5-5.1) Chloride Level 108 mmol/L (98-107) 108 mmol/L (98-107) Carbon Dioxide Level 15 mmol/L (21-32) 17 mmol/L (21-32) Anion Gap 14 (6-14) 13 (6-14) Blood Urea Nitrogen 43 mg/dL (8-26) 39 mg/dL (8-26) Creatinine 1.8 mg/dL (0.7-1.3) 1.6 mg/dL (0.7-1.3) Estimated GFR (Cockcroft-Gault) 40.1 46.0 BUN/Creatinine Ratio 24 (6-20) Glucose Level 134 mg/dL (70-99) 115 mg/dL (70-99) Calcium Level 8.8 mg/dL (8.5-10.1) 8.8 mg/dL (8.5-10.1) Total Bilirubin 0.4 mg/dL (0.2-1.0) Aspartate Amino Transf (AST/SGOT) 22 U/L (15-37) Alanine Aminotransferase (ALT/SGPT) 27 U/L (16-63) Alkaline Phosphatase 73 U/L (46-116) Total Protein 8.5 g/dL (6.4-8.2) Albumin 3.4 g/dL (3.4-5.0) Albumin/Globulin Ratio 0.7 (1.0-1.7) Glucose (Fingerstick) 107 mg/dL (70-99) Test 03/28/20 11:40 Glucose (Fingerstick) 154 mg/dL (70-99) Laboratory Tests Test 03/27/20 23:10 03/27/20 23:25 03/28/20 07:22 03/28/20 09:30 White Blood Count 10.4 x10^3/uL (4.0-11.0) Red Blood Count 5.76 x10^6/uL (4.30-5.70) Hemoglobin 16.5 g/dL (13.0-17.5) Hematocrit 50.3 % (39.0-53.0) Mean Corpuscular Volume 87 fL (79-100) Mean Corpuscular Hemoglobin 29 pg (25-35) Mean Corpuscular Hemoglobin Concent 33 g/dL (31-37) Red Cell Distribution Width 17.2 % (11.5-14.5) Platelet Count 300 x10^3/uL (140-400) Neutrophils (%) (Auto) 71 % (31-73) Lymphocytes (%) (Auto) 17 % (24-48) Monocytes (%) (Auto) 6 % (0-9) Eosinophils (%) (Auto) 5 % (0-3) Basophils (%) (Auto) 1 % (0-3) Neutrophils # (Auto) 7.4 x10^3/uL (1.8-7.7) Lymphocytes # (Auto) 1.7 x10^3/uL (1.0-4.8) Monocytes # (Auto) 0.6 x10^3/uL (0.0-1.1) Eosinophils # (Auto) 0.5 x10^3/uL (0.0-0.7) Basophils # (Auto) 0.1 x10^3/uL (0.0-0.2) Lactic Acid Level 0.3 mmol/L (0.4-2.0) Sodium Level 137 mmol/L (136-145) 138 mmol/L (136-145) Potassium Level 6.5 mmol/L (3.5-5.1) 6.2 mmol/L (3.5-5.1) Chloride Level 108 mmol/L (98-107) 108 mmol/L (98-107) Carbon Dioxide Level 15 mmol/L (21-32) 17 mmol/L (21-32) Anion Gap 14 (6-14) 13 (6-14) Blood Urea Nitrogen 43 mg/dL (8-26) 39 mg/dL (8-26) Creatinine 1.8 mg/dL (0.7-1.3) 1.6 mg/dL (0.7-1.3) Estimated GFR (Cockcroft-Gault) 40.1 46.0 BUN/Creatinine Ratio 24 (6-20) Glucose Level 134 mg/dL (70-99) 115 mg/dL (70-99) Calcium Level 8.8 mg/dL (8.5-10.1) 8.8 mg/dL (8.5-10.1) Total Bilirubin 0.4 mg/dL (0.2-1.0) Aspartate Amino Transf (AST/SGOT) 22 U/L (15-37) Alanine Aminotransferase (ALT/SGPT) 27 U/L (16-63) Alkaline Phosphatase 73 U/L (46-116) Total Protein 8.5 g/dL (6.4-8.2) Albumin 3.4 g/dL (3.4-5.0) Albumin/Globulin Ratio 0.7 (1.0-1.7) Glucose (Fingerstick) 107 mg/dL (70-99) Test 03/28/20 11:40 Glucose (Fingerstick) 154 mg/dL (70-99) Review All relevant outside records, renal labs, imaging studies, telemetry/EKG's were reviewed. MEENA LEONARD MD Mar 28, 2020 12:13
[2020-03-28] MEDS: HYDROcodone/APAP 7.5/325MG 1 TAB TABLET PO PRN (12:30)
[2020-03-28] MEDS: hydroCHLOROthiazide 12.5 MG CAPSULE PO SCH (13:16)
[2020-03-28] MEDS: LEVOTHYROXINE 25 MCG TABLET. PO SCH (13:47)
[2020-03-28] MEDS: hydrALAZINE 25 MG TABLET PO SCH ×2 (13:53→20:46)
[2020-03-28] MEDS: CEFEPIME HCL IV Push 2 GM VIAL. IVP SCH ×2 (15:39→23:36)
[2020-03-28] MEDS: DAPTOmycin (GENERIC) IVPB 500 MG in IV NORMAL SALINE 50ML 50 ML IV SCH (16:41)
[2020-03-28] MEDS ORDERED: IV RINGERS,LACTATED 1000ML 1,000 ML IV SCH (17:11)
[2020-03-28] MEDS ORDERED: fentaNYL PF VIAL 100 MCG/2 ML VIAL IV PRN ×2 (17:15)
[2020-03-28] MEDS ORDERED: INSULIN LISPRO 100 UNIT/ML 3ML VIAL for OP,RR ONLY. SQ PRN (17:15)
[2020-03-28] MEDS ORDERED: PROCHLORPERAZINE 10 MG/2 ML VIAL. IV PRN (17:15)
[2020-03-28] MEDS ORDERED: HYDROmorphone 2 MG/ML VIAL IV PRN (17:15)
[2020-03-28] MEDS ORDERED: MORPHINE SULFATE 2 MG/ML VIAL. IV PRN (17:15)
[2020-03-28 17:46] LABS: CREATININE 1.6 mg/dL (0.7-1.3); POTASSIUM 5.2 mmol/L (3.5-5.1)
[2020-03-28] MEDS ORDERED: PROPOFOL 10 MG/ML (20ML) VIAL. IV ONE (17:49)
[2020-03-28] MEDS ORDERED: LIDOCAINE 2% PF 5 ML VIAL. ONE (17:49)
--- NOTE | 2020-03-28 18:24 | PDOC ---
Date and Time Admit K was 6.2. Cr 1.6 I repeated it and it was 5.2 Rhythm strip shows T waves less than one half amplitude of Rs. Suspect this is chronic. Current Medications Current Medications Acetaminophen/ Hydrocodone Bitart (Lortab 5/325) 1 tab 1X ONCE PO Last administered on 03/27/20at 23:04; Start 03/27/20 at 23:15; Stop 03/27/20 at 23:16; Status DC Vancomycin HCl (Vanco Per Pharmacy) 1 each PRN DAILY PRN MC SEE COMMENTS Last administered on 03/28/20at 05:03; Start 03/28/20 at 00:15; Stop 03/28/20 at 13:59; Status DC Vancomycin HCl 2 gm/Sodium Chloride 500 ml @ 250 mls/hr 1X ONCE IV Last administered on 03/28/20at 00:34; Start 03/28/20 at 00:30; Stop 03/28/20 at 02:29; Status DC Sodium Chloride 1,000 ml @ 1,000 mls/hr 1X ONCE IV Last administered on 03/28/20at 00:30; Start 03/28/20 at 00:30; Stop 03/28/20 at 01:29; Status DC Dextrose (Dextrose 50%-Water Syringe) 50 gm 1X ONCE IV Last administered on 03/28/20at 00:33; Start 03/28/20 at 00:30; Stop 03/28/20 at 00:31; Status DC Calcium Gluconate (Calcium Gluconate) 1,000 mg 1X ONCE IVP Last administered o n 03/28/20at 00:33; Start 03/28/20 at 00:30; Stop 03/28/20 at 00:31; Status DC Insulin Human Regular (HumuLIN R VIAL) 10 unit 1X ONCE IV Last administered on 03/28/20at 00:33; Start 03/28/20 at 00:30; Stop 03/28/20 at 00:31; Status DC Acetaminophen/ Hydrocodone Bitart (Lortab 7.5/325) 1 tab 1X ONCE PO Last administered on 03/28/20at 04:24; Start 03/28/20 at 02:00; Stop 03/28/20 at 02:01; Status DC Vancomycin HCl 1.5 gm/Sodium Chloride 500 ml @ 250 mls/hr Q24H IV ; Start 03/28/20 at 23:00; Stop 03/28/20 at 13:58; Status DC Vancomycin HCl (Vancomycin Trough Level) 1 each 1X ONCE MC ; Start 03/29/20 at 22:30; Stop 03/28/20 at 14:00; Status DC Insulin Human Lispro (HumaLOG) 0-7 UNITS TIDWMEALS SQ ; Start 03/28/20 at 08:00 Dextrose (Dextrose 50%-Water Syringe) 12.5 gm PRN Q15MIN PRN IV SEE COMMENTS; Start 03/28/20 at 07:45 Sodium Polystyrene Sulfonate (Kayexalate) 30 gm 1X ONCE PO Last administered on 03/28/20at 10:43; Start 03/28/20 at 10:30; Stop 03/28/20 at 10:35; Status DC Diphtheria/ Tetanus/Acell Pertussis (ADACEL TDap SYRINGE) 0.5 ml ONCE ONCE VAX IM Last administered on 03/28/20at 11:55; Start 03/28/20 at 10:30; Stop 03/28/20 at 10:35; Status DC Aspirin (Ecotrin) 81 mg DAILY PO Last administered on 03/28/20at 11:56; Start 03/28/20 at 11:00 Levothyroxine Sodium (Synthroid) 25 mcg DAILY06 PO Last administered on 03/28/20at 13:47; Start 03/28/20 at 10:30 Losartan Potassium (Cozaar) 100 mg DAILY PO Last administered on 03/28/20at 11:55; Start 03/28/20 at 11:00; Stop 03/28/20 at 13:03; Status DC Hydrochlorothiazide (Microzide) 12.5 mg DAILY PO Last administered on 03/28/20at 11:55; Start 03/28/20 at 11:00; Stop 03/28/20 at 13:03; Status DC Sodium Chloride (Normal Saline Flush) 3 ml QSHIFT PRN IV AFTER MEDS AND BLOOD DRAWS; Start 03/28/20 at 10:45 Sodium Chloride 1,000 ml @ 100 mls/hr Q10H IV Last administered on 03/28/20at 11:53; Start 03/28/20 at 10:45 Ondansetron HCl (Zofran) 4 mg PRN Q4HRS PRN IV NAUSEA/VOMITING; Start 03/28/20 at 10:45 Al Hydroxide/Mg Hydroxide (Mylanta Plus Xs) 30 ml PRN DAILY PRN PO HEARTBURN / GAS; Start 03/28/20 at 10:45 Clonidine HCl (Catapres) 0.1 mg PRN Q6HRS PRN PO SBP>160 OR DBP>90; Start at 10:45 Sodium Monofluorophosphate (Fleet Adult) 133 ml PRN DAILY PRN [place] CONSTIPATION; Start 03/28/20 at 10:45 Docusate Sodium (Colace) 100 mg PRN BID PRN PO HARD STOOLS; Start 03/28/20 at 10:45 Albuterol Sulfate (Ventolin Neb Soln) 2.5 mg PRN Q4HRS PRN NEB SHORTNESS OF BREATH; Start 03/28/20 at 10:45 Guaifenesin (Robitussin) 200 mg PRN Q4HRS PRN PO COUGH; Start 03/28/20 at 10:45 Lorazepam (Ativan) 0.5 mg PRN Q4HRS PRN PO ANXIETY / AGITATION; Start 03/28/20 at 10:45 Enoxaparin Sodium (Lovenox 40mg Syringe) 40 mg Q24H SQ ; Start 03/28/20 at 12:00 Acetaminophen/ Hydrocodone Bitart (Lortab 7.5/325) 1 tab PRN Q6HRS PRN PO M ODERATE TO SEVERE PAIN Last administered on 03/28/20at 12:30; Start 03/28/20 at 12:15 Hydralazine HCl (Apresoline) 25 mg TID PO Last administered on 03/28/20at 13:53; Start 03/28/20 at 14:00 Hydrochlorothiazide (Microzide) 12.5 mg DAILY PO ; Start 03/28/20 at 14:00 Daptomycin 500 mg/ Sodium Chloride 50 ml @ 100 mls/hr Q24H IV Last administered on 03/28/20at 16:41; Start 03/28/20 at 16:00 Cefepime HCl (Maxipime) 2 gm Q12HR IVP Last administered on 03/28/20at 15:39; Start 03/28/20 at 15:00 Fentanyl Citrate (Fentanyl 2ml Vial) 25 mcg PRN Q5MIN PRN IV MILD PAIN 1-3; Start 03/28/20 at 17:15; Stop 03/28/20 at 22:00 Fentanyl Citrate (Fentanyl 2ml Vial) 50 mcg PRN Q5MIN PRN IV MODERATE TO SEVERE PAIN; Start 03/28/20 at 17:15; Stop 03/28/20 at 22:00 Morphine Sulfate (Morphine Sulfate) 1 mg PRN Q10MIN PRN IV SEVERE PAIN 7-10; Start 03/28/20 at 17:15; Stop 03/29/20 at 00:00 Ringer's Solution 1,000 ml @ 30 mls/hr Q24H IV ; Start 03/28/20 at 17:11; Stop 03/29/20 at 05:10 Hydromorphone HCl (Dilaudid) 0.5 mg PRN Q10MIN PRN IV SEV PAIN, Second choice; Start 03/28/20 at 17:15; Stop 03/29/20 at 00:00 Prochlorperazine Edisylate (Compazine) 5 mg PACU PRN PRN IV NAUSEA, MRX1; Start 03/28/20 at 17:15; Stop 03/29/20 at 00:00 Insulin Human Lispro (HumaLOG VIAL for OP,RR ONLY) 0-10 units PRN Q1HR PRN SQ PER PROTOCOL; Start 03/28/20 at 17:15; Stop 03/29/20 at 17:14 Propofol (Diprivan) 200 mg STK-MED ONCE IV ; Start 03/28/20 at 17:49; Stop 03/28/20 at 17:49; Status DC Lidocaine HCl (Lidocaine Pf 2% Vial) 5 ml STK-MED ONCE .ROUTE ; Start 03/28/20 at 17:49; Stop 03/28/20 at 17:49; Status DC Active Scripts Active Reported Aspir 81 (Aspirin) 81 Mg Tablet.dr 1 Tab PO DAILY Jardiance (Empagliflozin) 10 Mg Tablet 10 Mg PO Synthroid (Levothyroxine Sodium) 25 Mcg Tablet 1 Tab PO DAILY Losartan-Hctz 100-12.5 Mg Tab (Losartan/Hydrochlorothiazide) 1 Each Tablet 1 Tab PO DAILY Pertinent Labs/Test Laboratory Tests Test 03/27/20 23:10 03/27/20 23:25 03/28/20 07:22 03/28/20 09:30 White Blood Count 10.4 x10^3/uL (4.0-11.0) Red Blood Count 5.76 x10^6/uL (4.30-5.70) Hemoglobin 16.5 g/dL (13.0-17.5) Hematocrit 50.3 % (39.0-53.0) Mean Corpuscular Volume 87 fL (79-100) Mean Corpuscular Hemoglobin 29 pg (25-35) Mean Corpuscular Hemoglobin Concent 33 g/dL (31-37) Red Cell Distribution Width 17.2 % (11.5-14.5) Platelet Count 300 x10^3/uL (140-400) Neutrophils (%) (Auto) 71 % (31-73) Lymphocytes (%) (Auto) 17 % (24-48) Monocytes (%) (Auto) 6 % (0-9) Eosinophils (%) (Auto) 5 % (0-3) Basophils (%) (Auto) 1 % (0-3) Neutrophils # (Auto) 7.4 x10^3/uL (1.8-7.7) Lymphocytes # (Auto) 1.7 x10^3/uL (1.0-4.8) Monocytes # (Auto) 0.6 x10^3/uL (0.0-1.1) Eosinophils # (Auto) 0.5 x10^3/uL (0.0-0.7) Basophils # (Auto) 0.1 x10^3/uL (0.0-0.2) Lactic Acid Level 0.3 mmol/L (0.4-2.0) Sodium Level 137 mmol/L (136-145) 138 mmol/L (136-145) Potassium Level 6.5 mmol/L (3.5-5.1) 6.2 mmol/L (3.5-5.1) Chloride Level 108 mmol/L (98-107) 108 mmol/L (98-107) Carbon Dioxide Level 15 mmol/L (21-32) 17 mmol/L (21-32) Anion Gap 14 (6-14) 13 (6-14) Blood Urea Nitrogen 43 mg/dL (8-26) 39 mg/dL (8-26) Creatinine 1.8 mg/dL (0.7-1.3) 1.6 mg/dL (0.7-1.3) Estimated GFR (Cockcroft-Gault) 40.1 46.0 BUN/Creatinine Ratio 24 (6-20) Glucose Level 134 mg/dL (70-99) 115 mg/dL (70-99) Calcium Level 8.8 mg/dL (8.5-10.1) 8.8 mg/dL (8.5-10.1) Total Bilirubin 0.4 mg/dL (0.2-1.0) Aspartate Amino Transf (AST/SGOT) 22 U/L (15-37) Alanine Aminotransferase (ALT/SGPT) 27 U/L (16-63) Alkaline Phosphatase 73 U/L (46-116) Total Protein 8.5 g/dL (6.4-8.2) Albumin 3.4 g/dL (3.4-5.0) Albumin/Globulin Ratio 0.7 (1.0-1.7) Glucose (Fingerstick) 107 mg/dL (70-99) C-Reactive Protein, Quantitative 2.8 mg/L (0-3.3) Test 03/28/20 11:40 03/28/20 12:15 03/28/20 16:05 03/28/20 16:42 Glucose (Fingerstick) 154 mg/dL (70-99) 134 mg/dL (70-99) SARS-CoV-2 Antigen (Rapid) Negative (NEGATIVE) Sodium Level 137 mmol/L (136-145) Potassium Level 5.2 mmol/L (3.5-5.1) Chloride Level 107 mmol/L (98-107) Carbon Dioxide Level 19 mmol/L (21-32) Anion Gap 11 (6-14) Blood Urea Nitrogen 37 mg/dL (8-26) Creatinine 1.6 mg/dL (0.7-1.3) Estimated GFR (Cockcroft-Gault) 46.0 Glucose Level 138 mg/dL (70-99) Calcium Level 9.0 mg/dL (8.5-10.1) Laboratory Tests Test 03/27/20 23:10 03/27/20 23:25 03/28/20 07:22 03/28/20 09:30 White Blood Count 10.4 x10^3/uL (4.0-11.0) Red Blood Count 5.76 x10^6/uL (4.30-5.70) Hemoglobin 16.5 g/dL (13.0-17.5) Hematocrit 50.3 % (39.0-53.0) Mean Corpuscular Volume 87 fL (79-100) Mean Corpuscular Hemoglobin 29 pg (25-35) Mean Corpuscular Hemoglobin Concent 33 g/dL (31-37) Red Cell Distribution Width 17.2 % (11.5-14.5) Platelet Count 300 x10^3/uL (140-400) Neutrophils (%) (Auto) 71 % (31-73) Lymphocytes (%) (Auto) 17 % (24-48) Monocytes (%) (Auto) 6 % (0-9) Eosinophils (%) (Auto) 5 % (0-3) Basophils (%) (Auto) 1 % (0-3) Neutrophils # (Auto) 7.4 x10^3/uL (1.8-7.7) Lymphocytes # (Auto) 1.7 x10^3/uL (1.0-4.8) Monocytes # (Auto) 0.6 x10^3/uL (0.0-1.1) Eosinophils # (Auto) 0.5 x10^3/uL (0.0-0.7) Basophils # (Auto) 0.1 x10^3/uL (0.0-0.2) Lactic Acid Level 0.3 mmol/L (0.4-2.0) Sodium Level 137 mmol/L (136-145) 138 mmol/L (136-145) Potassium Level 6.5 mmol/L (3.5-5.1) 6.2 mmol/L (3.5-5.1) Chloride Level 108 mmol/L (98-107) 108 mmol/L (98-107) Carbon Dioxide Level 15 mmol/L (21-32) 17 mmol/L (21-32) Anion Gap 14 (6-14) 13 (6-14) Blood Urea Nitrogen 43 mg/dL (8-26) 39 mg/dL (8-26) Creatinine 1.8 mg/dL (0.7-1.3) 1.6 mg/dL (0.7-1.3) Estimated GFR (Cockcroft-Gault) 40.1 46.0 BUN/Creatinine Ratio 24 (6-20) Glucose Level 134 mg/dL (70-99) 115 mg/dL (70-99) Calcium Level 8.8 mg/dL (8.5-10.1) 8.8 mg/dL (8.5-10.1) Total Bilirubin 0.4 mg/dL (0.2-1.0) Aspartate Amino Transf (AST/SGOT) 22 U/L (15-37) Alanine Aminotransferase (ALT/SGPT) 27 U/L (16-63) Alkaline Phosphatase 73 U/L (46-116) Total Protein 8.5 g/dL (6.4-8.2) Albumin 3.4 g/dL (3.4-5.0) Albumin/Globulin Ratio 0.7 (1.0-1.7) Glucose (Fingerstick) 107 mg/dL (70-99) C-Reactive Protein, Quantitative 2.8 mg/L (0-3.3) Test 03/28/20 11:40 03/28/20 12:15 03/28/20 16:05 03/28/20 16:42 Glucose (Fingerstick) 154 mg/dL (70-99) 134 mg/dL (70-99) SARS-CoV-2 Antigen (Rapid) Negative (NEGATIVE) Sodium Level 137 mmol/L (136-145) Potassium Level 5.2 mmol/L (3.5-5.1) Chloride Level 107 mmol/L (98-107) Carbon Dioxide Level 19 mmol/L (21-32) Anion Gap 11 (6-14) Blood Urea Nitrogen 37 mg/dL (8-26) Creatinine 1.6 mg/dL (0.7-1.3) Estimated GFR (Cockcroft-Gault) 46.0 Glucose Level 138 mg/dL (70-99) Calcium Level 9.0 mg/dL (8.5-10.1) LAST VITALS Vital Signs Date Time Temp Pulse Resp B/P (MAP) Pulse Ox O2 Delivery O2 Flow Rate FiO2 03/28/20 15:00 98.2 88 19 144/81 (102) 97 Room Air 98.2 HILARIO MCINTOSH MD Mar 28, 2020 18:24
[2020-03-28] MEDS ORDERED: fentaNYL PF VIAL 100 MCG/2 ML VIAL ONE (18:40)
[2020-03-28] MEDS ORDERED: ONDANSETRON PF 4 MG/2 ML VIAL. ONE (18:50)
[2020-03-28] MEDS ORDERED: SEVOFLURANE 31 TO 60 MINUTES. IH ONE (18:50)
--- NOTE | 2020-03-28 19:32 | CONS ---
DATE OF CONSULTATION: 03/28/2020 ORTHOPEDIC CONSULTATION REASON FOR CONSULTATION: Right index finger infection. HISTORY OF PRESENT ILLNESS: The patient is a 49-year-old male who indicates that he has probably had about 2 months worth of problems with his right index finger with pain, redness, swelling and warmth and he has [facility], but notes that he was getting some treatment since I have to soften up the necrotic area at the radial aspect of the index fingertip and instead over the past few days developed increasing pain, swelling, redness, warmth into the right index finger that was slightly over the palm that worsened over the past 3 days prior to admission. He states that the radiation of pain to the palm of his hand somewhat resolved with the IV antibiotics overnight, but still has a lot of stiffness in the index finger that is not affecting his other fingers of the right hand and no problem with the left hand. He had, on admission, very severe pain with movement of the finger, which has resolved significantly since that time. PAST MEDICAL HISTORY: Significant for type 1 diabetes, kidney disease. PAST SURGICAL HISTORY: He denies any past surgical history. SOCIAL HISTORY: Denies smoking, alcohol or drug use. FAMILY HISTORY: Only family history is for hypertension. MEDICATIONS LIST: Reviewed. ALLERGIES: INCLUDE INTOLERANCE TO GINETTE INHIBITORS. REVIEW OF SYSTEMS: Has a history of MRSA. Denies any fever or chills, but he has had swelling of the right hand as described in the history of present illness, radiation of pain to the palm, roughly aligned with the index finger. He notes also some skin color changes to his right hand, face and scalp. Otherwise, denies any chest pain, shortness of breath, focal weakness, numbness, tingling aside from some slight paresthesia, largely resolved over the index finger. Otherwise review of systems is negative. IMAGING: X-rays to the right hand show no evidence of bony erosion or signs of osteomyelitis. PHYSICAL EXAMINATION: EXTREMITIES: A pleasant, cooperative 49-year-old male. He has limited flexion of his right index finger and pain over the flexor tendon sheath proximally only up to about the PIP joint. There is no tenderness in the palm. No tenderness over his extensor tendon sheath. He has a necrotic area at the radial side of the tip of his finger just adjacent to his fingernail that is painful to touch. He does have some surrounding erythema, swelling and tenderness on palpation, especially to the fingertip primarily over the distal phalanx and a little less so over the middle phalanx of the finger. No involvement of the other fingers where he has full flexion and extension with intact profundus superficialis and extensor function, which is also present in the left hand. He has normal alignment and stability in bilateral wrists, elbows and shoulders, hips, knees and ankles with no joint effusions present. IMPRESSION: Right index finger infection with apparent signs of some flexor tenosynovitis, significantly resolved with IV antibiotics overnight. TREATMENT PLAN: I went over with him the concern for rapid spread of infection in the tendon sheaths if it is present. Based on his examination, his description of the course of this problem, I think that he is improving a little bit. Nevertheless, he is concerned that he has been struggling with this wound for quite some time and certainly the worsening is concerning over the past 3 days or so. We therefore talked about the surgical alternative to remove that necrotic tissue, so it can be packed open and otherwise treated with wound care and if there is any involvement in the flexor tendon sheath that we opened that up, washed it out well, so the antibiotics can work better and medicate any spread of infection. He agrees to proceed with surgical evaluation and treatment, which will occur this evening to allow for adequate n.p.o. status and safety under anesthesia. JODI VINSON MD DR: PRINCE/tony JOB#: [id number] / [id number]
--- NOTE | 2020-03-28 19:41 | PDOC4 ---
Operative Note Operative Note Date of surgery: 03/28/2020 Preoperative diagnosis: Right index finger infection, possible flexor tenosynovitis Postoperative diagnosis: Right index finger infection with skin subcutaneous and fascia involvement, not involving flexor tendon sheath Operative procedure: Irrigation debridement right index finger involving skin subcutaneous tissue and fascia Surgeon: Chintan Anesthesia: General Estimated blood loss: 5 cc Complications: None Operative indications: Please see my dictated orthopedic consultation for detailed operative indications Operative text: Patient was identified procedure verified patient placed in the supine position on the operating table. After adequate amounts of general anesthesia were administered the right upper extremity was prepped and draped in standard sterile fashion. After timeout was performed patient procedure identified and verified the necrotic tissue at the distal radial fingertip was unroofed and purulent drainage was obtained and cultured. Devitalized tissue consisting of skin subcutaneous tissue and fascia was debrided sharply with a rongeur and scalpel back to healthy tissue. There was no involvement to the flexor tendon sheath and the nailbed appeared unaffected. Distal fingernail was trimmed to avoid retention of any devitalized tissue adjacent. Thorough irrigation carried out with bulb syringe sterile dressings Xeroform gauze 4 x 4's and tube gauze were placed. Patient was returned to recovery room in stable condition having tolerated procedure well JODI VINSON MD Mar 28, 2020 19:41
--- NOTE | 2020-03-28 19:57 | CONS ---
DATE OF CONSULTATION: 03/28/2020 REFERRING PHYSICIAN: Dr. Naqvi CONSULTING PHYSICIAN: Dr. Ocampo REASON FOR CONSULTATION: Right second finger infection. HISTORY OF PRESENT ILLNESS: A 49-year-old male with diabetes mellitus, CKD, presented to the ER with concerns of pain, swelling, redness and warmth of the right index finger, which increased over the last couple of days. The patient works at [employer] and had sustained injury about 2 months ago with swelling. He took oral antibiotic for a couple of days. He was getting better. He was [facility], but since it started getting worse, he presented to the ER. He denies any fevers, chills, nausea, vomiting, diarrhea, headache, sore throat, difficulty swallowing, numbness, tingling, other injury ulcers, symptoms, rash. He also had decrease in range of motion. His white count was 10.4. Lactate was 0.3, glucose was 134. Temperature was 98.6. He underwent x-ray of the right finger, which showed no acute osseous abnormality. No evidence of osteomyelitis in the setting or swelling or erythema of the index finger. He was started on IV vancomycin. Potassium was 6.5, now 6.2. COVID-19 rapid test is negative. Orthopedics is consulted per nursing staff. Dr. Woodson is planning for I and D of the right index finger later today. REVIEW OF SYSTEMS: Negative except for above in the HPI. PAST MEDICAL HISTORY: Diabetes type 1, CKD, history of MRSA, perineal abscess, status post I and D couple of years ago. ALLERGIES: No known drug allergies. SOCIAL HISTORY: Denies smoking, ETOH, or illicit drug use. 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 CURRENT MEDICATIONS: Vancomycin, hydrochlorothiazide, hydroxyzine, hydrocodone, enoxaparin, aspirin, lorazepam, guaifenesin, albuterol sulfate, docusate, clonidine. PHYSICAL EXAMINATION: VITAL SIGNS: Temperature 98.1, pulse 90, respiratory rate 18, blood pressure 143/90, oxygen saturation 98% on room air. GENERAL: Alert, oriented x 3, well-developed, well-nourished male in no acute distress, pleasant, cooperative. at bedside, nontoxic appearing. HEENT: Normocephalic, atraumatic, anicteric. NECK: Supple, no JVD. LUNGS: Clear bilaterally. No wheezing. HEART: S1, S2. No gallops or murmurs. ABDOMEN: Soft, nontender, nondistended, no rebound, no guarding. EXTREMITIES: No edema, no cyanosis, no clubbing. DERM: Warm and dry. No generalized rash. Right index finger has an open wound with mild swelling and area of necrosis. No drainage. Mild erythema, warmth. NEUROLOGIC: Alert and oriented x 3, grossly nonfocal. PSYCHIATRIC: Cooperative, appropriate mood and affect. MUSCULOSKELETAL: As above, right second index finger swelling with tenderness at the tip of the index finger with open wound with mild necrosis. No purulence. Slight decrease in range of motion due to swelling and tightness. LABORATORY DATA: WBC 10.4, hemoglobin 16.5, hematocrit 50.3, platelets 300, eosinophils 5. Sodium 138, potassium 6.2, chloride 108, bicarbonate 17, BUN 39, creatinine 1.6, glucose 115. Lactate 0.3. Serology: COVID-19 rapid test negative. IMAGING: Hand x-ray, right no acute osseous abnormality, no evidence of osteomyelitis in the setting of reported swelling in the mouth, the index finger. IMPRESSION: 1. Right index finger infection with history of injury about 2 months ago. 2. Diabetes mellitus. 3. Hypertension. 4. Chronic kidney disease. 5. Hyperkalemia. 6. Metabolic acidosis. 7. History of methicillin-resistant Staphylococcus aureus perineal abscess. RECOMMENDATIONS: 1. Discontinue IV vancomycin due to acute kidney injury with underlying chronic kidney disease. 2. Start daptomycin. 3. Start cefepime. 4. Send intraoperative tissue for cultures. 5. Follow up labs and cultures. 6. Continue local wound care as directed. 7. Orthopedics is planning for surgery later today. 8. Tetanus shot if not done already. 9. Continue supportive care. 10. Discussed with at bedside. 11. Discussed with RN. Thank you for allowing me to participate in this patient's care. If you have any questions, do not hesitate to contact me. CHLOE PUCKETT MD DR: ART/tony JOB#: [id number] / [id number]
[2020-03-28] MEDS ORDERED: VANCOMYCIN 1.5 GM in IV NORMAL SALINE 500ML BAG 500 ML IV SCH (23:00)
[2020-03-29] VITALS (9 sets, daily range): BP systolic 111–147; BP diastolic 60–84
[2020-03-29] MEDS: LEVOTHYROXINE 25 MCG TABLET. PO SCH (06:26)
[2020-03-29 06:41] LABS: BASO # 0.1 x10^3/uL (0.0-0.2); BASO % 1 % (0-3); EOS # 0.6 x10^3/uL (0.0-0.7); EOS % 7 % (0-3); HEMATOCRIT 46.1 % (39.0-53.0); HEMOGLOBIN 14.8 g/dL (13.0-17.5); LYMPH # 1.3 x10^3/uL (1.0-4.8); LYMPH % 16 % (24-48); MEAN CORPUSCULAR HEMOGLOBIN 28 pg (25-35); MEAN CORPUSCULAR HGB CONC 32 g/dL (31-37); MEAN CORPUSCULAR VOLUME 88 fL (79-100); MONO # 0.7 x10^3/uL (0.0-1.1); MONO % 9 % (0-9); NEUT # 5.5 x10^3/uL (1.8-7.7); NEUT % 67 % (31-73); PLATELET COUNT 256 x10^3/uL (140-400); RED BLOOD COUNT 5.26 x10^6/uL (4.30-5.70); RED CELL DISTRIBUTION WIDTH 17.1 % (11.5-14.5); WHITE BLOOD COUNT 8.2 x10^3/uL (4.0-11.0)
[2020-03-29 06:53] LABS: ALBUMIN 2.8 g/dL (3.4-5.0); ALBUMIN/GLOBULIN RATIO 0.6 (1.0-1.7); CALCIUM 8.5 mg/dL (8.5-10.1); CREATININE 1.6 mg/dL (0.7-1.3); POTASSIUM 5.4 mmol/L (3.5-5.1); TOTAL BILIRUBIN 0.4 mg/dL (0.2-1.0); TOTAL PROTEIN 7.2 g/dL (6.4-8.2)
[2020-03-29] MEDS: IV NORMAL SALINE 1000ML BAG 1,000 ML IV SCH (07:18)
[2020-03-29] MEDS: INSULIN LISPRO 300 UNITS/3 ML VIAL. SQ SCH ×3 (07:53→16:59)
--- NOTE | 2020-03-29 07:57 | PDOC ---
[facility] PROGRESS NOTE Date of Service DOS: DATE: 03/29/20 TIME: 07:52 Chief Complaint Chief Complaint CELLULITIS OF FINGER, COMPLICATED Failure of outpatient treatment No RADIOGRAPHIC acute osseous abnormality. no evidence for osteomyelitis of reported swelling/erythema of index finger. DIABETES DILLON metabolic acidosis hyperkalemia CKD Plan: admit CVC BED BLOOD CULTURE ID CONSULT ORTHO CONSULT Nephrology consult dvt prophylaxis iv fluid support avoid nephrotoxins BMP TODAY AT 1500 Kayexylate 30 mg po now x 1 A1C NPO for OR TODAY IV DAPTOMYCIN History of Present Illness History of Present Illness SEEN IN ER WITH SEVERE CELLULITIS OF DIGIT 49 year old AA male, accompanied by his , who presents emergency department with concerns of pain, redness, and warmth in his right index finger that is increased over the last 3 days. He reports that the pain now radiates from the tip of his finger all the way to the palm of his hand. Patient states he has been seeing the wound care center for a wound to the lateral distal end of his right index finger for the last 8 weeks. Patient states he last took oral antibiotics over a month ago for the infection. He states that the wound care doctor has been having him apply a medication to help soften the wound area. He denies any fever, cough, shortness of breath, nausea, vomiting, diarrhea, abdominal pain, body aches, or fatigue. He denies any decreased sensation, numbness, or tingling in the affected hand. Patient reports that he has noticed increased areas of lightening skin to his scalp, face and his right hand. Currently rates his pain a 5 out of 10 on the pain scale, he denies any alleviating factors, he states that the pain becomes excruciating if the area is touched or if he moves his finger. 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 Continue cefepime and daptomycin, per ID. Vitals/I&O Vitals/I&O: Vital Signs Date Time Temp Pulse Resp B/P (MAP) Pulse Ox O2 Delivery O2 Flow Rate FiO2 03/29/20 03:35 98.3 95 18 138/84 (102) 94 Room Air 98.3 03/28/20 19:40 8 I & O 03/28/20 03/28/20 03/29/20 15:00 23:00 07:00 Intake Total 1700 ml 850 ml 600 ml Output Total 5 ml Balance 1700 ml 845 ml 600 ml Physical Exam General: Alert, Oriented X3, Cooperative, mild distress Heart: Regular rate Lungs: Clear Abdomen: Normal bowel sounds, Soft Extremities: No cyanosis Labs Labs: Laboratory Tests Test 03/28/20 09:30 03/28/20 11:40 03/28/20 12:15 03/28/20 16:05 Sodium Level 138 mmol/L (136-145) 137 mmol/L (136-145) Potassium Level 6.2 mmol/L (3.5-5.1) 5.2 mmol/L (3.5-5.1) Chloride Level 108 mmol/L (98-107) 107 mmol/L (98-107) Carbon Dioxide Level 17 mmol/L (21-32) 19 mmol/L (21-32) Anion Gap 13 (6-14) 11 (6-14) Blood Urea Nitrogen 39 mg/dL (8-26) 37 mg/dL (8-26) Creatinine 1.6 mg/dL (0.7-1.3) 1.6 mg/dL (0.7-1.3) Estimated GFR (Cockcroft-Gault) 46.0 46.0 Glucose Level 115 mg/dL (70-99) 138 mg/dL (70-99) Calcium Level 8.8 mg/dL (8.5-10.1) 9.0 mg/dL (8.5-10.1) C-Reactive Protein, Quantitative 2.8 mg/L (0-3.3) Glucose (Fingerstick) 154 mg/dL (70-99) SARS-CoV-2 Antigen (Rapid) Negative (NEGATIVE) Test 03/28/20 16:42 03/28/20 19:27 03/28/20 20:43 03/29/20 05:20 Glucose (Fingerstick) 134 mg/dL (70-99) 120 mg/dL (70-99) 134 mg/dL (70-99) White Blood Count 8.2 x10^3/uL (4.0-11.0) Red Blood Count 5.26 x10^6/uL (4.30-5.70) Hemoglobin 14.8 g/dL (13.0-17.5) Hematocrit 46.1 % (39.0-53.0) Mean Corpuscular Volume 88 fL (79-100) Mean Corpuscular Hemoglobin 28 pg (25-35) Mean Corpuscular Hemoglobin Concent 32 g/dL (31-37) Red Cell Distribution Width 17.1 % (11.5-14.5) Platelet Count 256 x10^3/uL (140-400) Neutrophils (%) (Auto) 67 % (31-73) Lymphocytes (%) (Auto) 16 % (24-48) Monocytes (%) (Auto) 9 % (0-9) Eosinophils (%) (Auto) 7 % (0-3) Basophils (%) (Auto) 1 % (0-3) Neutrophils # (Auto) 5.5 x10^3/uL (1.8-7.7) Lymphocytes # (Auto) 1.3 x10^3/uL (1.0-4.8) Monocytes # (Auto) 0.7 x10^3/uL (0.0-1.1) Eosinophils # (Auto) 0.6 x10^3/uL (0.0-0.7) Basophils # (Auto) 0.1 x10^3/uL (0.0-0.2) Sodium Level 140 mmol/L (136-145) Potassium Level 5.4 mmol/L (3.5-5.1) Chloride Level 111 mmol/L (98-107) Carbon Dioxide Level 18 mmol/L (21-32) Anion Gap 11 (6-14) Blood Urea Nitrogen 36 mg/dL (8-26) Creatinine 1.6 mg/dL (0.7-1.3) Estimated GFR (Cockcroft-Gault) 46.0 BUN/Creatinine Ratio 23 (6-20) Glucose Level 119 mg/dL (70-99) Calcium Level 8.5 mg/dL (8.5-10.1) Total Bilirubin 0.4 mg/dL (0.2-1.0) Aspartate Amino Transf (AST/SGOT) 22 U/L (15-37) Alanine Aminotransferase (ALT/SGPT) 21 U/L (16-63) Alkaline Phosphatase 57 U/L (46-116) Total Protein 7.2 g/dL (6.4-8.2) Albumin 2.8 g/dL (3.4-5.0) Albumin/Globulin Ratio 0.6 (1.0-1.7) Test 03/29/20 07:40 Glucose (Fingerstick) 116 mg/dL (70-99) Review of Systems Review of Systems: Denies fever, denies nausea, denies shortness of breath. Assessment and Plan Assessmemt and Plan Problems Medical Problems: (1) Hyperkalemia Status: Acute Comment Review of Relevant I have reviewed the following items isidro (where applicable) has been applied. Medications: Current Medications Medications (Trade) Dose Ordered Sig/Efe Route PRN Reason Start Time Stop Time Status Last Admin Dose Admin Sodium Polystyrene Sulfonate (Kayexalate) 30 gm 1X ONCE PO 03/28/20 10:30 03/28/20 10:35 DC 03/28/20 10:43 Diphtheria/ Tetanus/Acell Pertussis (ADACEL TDap SYRINGE) 0.5 ml ONCE ONCE VAX IM 03/28/20 10:30 03/28/20 10:35 DC 03/28/20 11:55 Aspirin (Ecotrin) 81 mg DAILY PO 03/28/20 11:00 03/28/20 11:56 Levothyroxine Sodium (Synthroid) 25 mcg DAILY06 PO 03/28/20 10:30 03/29/20 06:26 Losartan Potassium (Cozaar) 100 mg DAILY PO 03/28/20 11:00 03/28/20 13:03 DC 03/28/20 11:55 Hydrochlorothiazide (Microzide) 12.5 mg DAILY PO 03/28/20 11:00 03/28/20 13:03 DC 03/28/20 11:55 Sodium Chloride 1,000 ml @ 100 mls/hr Q10H IV 03/28/20 10:45 03/29/20 07:18 Acetaminophen/ Hydrocodone Bitart (Lortab 7.5/325) 1 tab PRN Q6HRS PRN PO MODERATE TO SEVERE PAIN 03/28/20 12:15 03/28/20 12:30 Hydralazine HCl (Apresoline) 25 mg TID PO 03/28/20 14:00 03/28/20 20:46 Daptomycin 500 mg/ Sodium Chloride 50 ml @ 100 mls/hr Q24H IV 03/28/20 16:00 03/28/20 16:41 Cefepime HCl (Maxipime) 2 gm Q12HR IVP 03/28/20 15:00 03/28/20 23:36 Justifications for Admission Other Justification ZAKIYA EDMONDS MD Mar 29, 2020 07:57
--- NOTE | 2020-03-29 07:57 | PDOC ---
Infectious Disease Note Subjective Subjective pt is feeling much better ROS ROS no n/v/d/sob Vital Sign Vital Signs Vital Signs Date Time Temp Pulse Resp B/P (MAP) Pulse Ox O2 Delivery O2 Flow Rate FiO2 03/29/20 03:35 98.3 95 18 138/84 (102) 94 Room Air 98.3 03/28/20 19:40 8 Physical Exam PHYSICAL EXAM GENERAL: Alert, oriented x 3, well-developed, well-nourished male in no acute distress, pleasant, cooperative. at bedside, nontoxic appearing. HEENT: Normocephalic, atraumatic, anicteric. NECK: Supple, no JVD. LUNGS: Clear bilaterally. No wheezing. HEART: S1, S2. No gallops or murmurs. ABDOMEN: Soft, nontender, nondistended, no rebound, no guarding. EXTREMITIES: No edema, no cyanosis, no clubbing. DERM: Warm and dry. No generalized rash. Right index finger post surgery dressing not opened NEUROLOGIC: Alert and oriented x 3, grossly nonfocal. PSYCHIATRIC: Cooperative, appropriate mood and affect. MUSCULOSKELETAL: As above, right second index finger post surgery dressing not opened Labs Lab Laboratory Tests Test 03/28/20 09:30 03/28/20 11:40 03/28/20 12:15 03/28/20 16:05 Sodium Level 138 mmol/L (136-145) 137 mmol/L (136-145) Potassium Level 6.2 mmol/L (3.5-5.1) 5.2 mmol/L (3.5-5.1) Chloride Level 108 mmol/L (98-107) 107 mmol/L (98-107) Carbon Dioxide Level 17 mmol/L (21-32) 19 mmol/L (21-32) Anion Gap 13 (6-14) 11 (6-14) Blood Urea Nitrogen 39 mg/dL (8-26) 37 mg/dL (8-26) Creatinine 1.6 mg/dL (0.7-1.3) 1.6 mg/dL (0.7-1.3) Estimated GFR (Cockcroft-Gault) 46.0 46.0 Glucose Level 115 mg/dL (70-99) 138 mg/dL (70-99) Calcium Level 8.8 mg/dL (8.5-10.1) 9.0 mg/dL (8.5-10.1) C-Reactive Protein, Quantitative 2.8 mg/L (0-3.3) Glucose (Fingerstick) 154 mg/dL (70-99) SARS-CoV-2 Antigen (Rapid) Negative (NEGATIVE) Test 03/28/20 16:42 03/28/20 19:27 03/28/20 20:43 03/29/20 05:20 Glucose (Fingerstick) 134 mg/dL (70-99) 120 mg/dL (70-99) 134 mg/dL (70-99) White Blood Count 8.2 x10^3/uL (4.0-11.0) Red Blood Count 5.26 x10^6/uL (4.30-5.70) Hemoglobin 14.8 g/dL (13.0-17.5) Hematocrit 46.1 % (39.0-53.0) Mean Corpuscular Volume 88 fL (79-100) Mean Corpuscular Hemoglobin 28 pg (25-35) Mean Corpuscular Hemoglobin Concent 32 g/dL (31-37) Red Cell Distribution Width 17.1 % (11.5-14.5) Platelet Count 256 x10^3/uL (140-400) Neutrophils (%) (Auto) 67 % (31-73) Lymphocytes (%) (Auto) 16 % (24-48) Monocytes (%) (Auto) 9 % (0-9) Eosinophils (%) (Auto) 7 % (0-3) Basophils (%) (Auto) 1 % (0-3) Neutrophils # (Auto) 5.5 x10^3/uL (1.8-7.7) Lymphocytes # (Auto) 1.3 x10^3/uL (1.0-4.8) Monocytes # (Auto) 0.7 x10^3/uL (0.0-1.1) Eosinophils # (Auto) 0.6 x10^3/uL (0.0-0.7) Basophils # (Auto) 0.1 x10^3/uL (0.0-0.2) Sodium Level 140 mmol/L (136-145) Potassium Level 5.4 mmol/L (3.5-5.1) Chloride Level 111 mmol/L (98-107) Carbon Dioxide Level 18 mmol/L (21-32) Anion Gap 11 (6-14) Blood Urea Nitrogen 36 mg/dL (8-26) Creatinine 1.6 mg/dL (0.7-1.3) Estimated GFR (Cockcroft-Gault) 46.0 BUN/Creatinine Ratio 23 (6-20) Glucose Level 119 mg/dL (70-99) Calcium Level 8.5 mg/dL (8.5-10.1) Total Bilirubin 0.4 mg/dL (0.2-1.0) Aspartate Amino Transf (AST/SGOT) 22 U/L (15-37) Alanine Aminotransferase (ALT/SGPT) 21 U/L (16-63) Alkaline Phosphatase 57 U/L (46-116) Total Protein 7.2 g/dL (6.4-8.2) Albumin 2.8 g/dL (3.4-5.0) Albumin/Globulin Ratio 0.6 (1.0-1.7) Test 03/29/20 07:40 Glucose (Fingerstick) 116 mg/dL (70-99) Objective Assessment IMPRESSION: 1. Right index finger infection with history of injury about 2 months ago. s/p I and D 2. Diabetes mellitus. 3. Hypertension. 4. Chronic kidney disease. 5. Hyperkalemia. 6. Metabolic acidosis. 7. History of methicillin-resistant Staphylococcus aureus perineal abscess. Plan Plan of Care cont dapto and cefepime check cultures MARY ANN PUCKETT MD Mar 29, 2020 07:57
[2020-03-29] MEDS: CEFEPIME HCL IV Push 2 GM VIAL. IVP SCH ×2 (08:14→21:17)
[2020-03-29] MEDS: hydrALAZINE 25 MG TABLET PO SCH (08:14)
[2020-03-29] MEDS: ASPIRIN ENTERIC COATED 81 MG TABLET.DR. PO SCH (08:14)
[2020-03-29] MEDS: hydroCHLOROthiazide 12.5 MG CAPSULE PO SCH (08:14)
[2020-03-29] MEDS: ENOXAPARIN 40 MG/0.4 ML SYRINGE. SQ SCH (12:22)
--- NOTE | 2020-03-29 12:30 | PDOC ---
[employer] PROGRESS NOTE Date of Service DOS: DATE: 03/29/20 TIME: 12:29 Chief Complaint Chief Complaint CELLULITIS OF FINGER, COMPLICATED Failure of outpatient treatment No RADIOGRAPHIC acute osseous abnormality. no evidence for osteomyelitis of reported swelling/erythema of index finger. DIABETES DILLON metabolic acidosis hyperkalemia CKD Plan: admit CVC BED BLOOD CULTURE ID CONSULT ORTHO CONSULT Nephrology consult dvt prophylaxis iv fluid support avoid nephrotoxins BMP TODAY AT 1500 Kayexylate 30 mg po now x 1 A1C NPO for OR TODAY IV DAPTOMYCIN History of Present Illness History of Present Illness SEEN IN ER WITH SEVERE CELLULITIS OF DIGIT 49 year old AA male, accompanied by his , who presents emergency department with concerns of pain, redness, and warmth in his right index finger that is increased over the last 3 days. He reports that the pain now radiates from the tip of his finger all the way to the palm of his hand. Patient states he has been seeing the wound care center for a wound to the lateral distal end of his right index finger for the last 8 weeks. Patient states he last took oral antibiotics over a month ago for the infection. He states that the wound care doctor has been having him apply a medication to help soften the wound area. He denies any fever, cough, shortness of breath, nausea, vomiting, diarrhea, abdominal pain, body aches, or fatigue. He denies any decreased sensation, numbness, or tingling in the affected hand. Patient reports that he has noticed increased areas of lightening skin to his scalp, face and his right hand. Currently rates his pain a 5 out of 10 on the pain scale, he denies any alleviating factors, he states that the pain becomes excruciating if the area is touched or if he moves his finger. 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 Continue cefepime and daptomycin, per ID. Pain is well controlled. Vitals/I&O Vitals/I&O: Vital Signs Date Time Temp Pulse Resp B/P (MAP) Pulse Ox O2 Delivery O2 Flow Rate FiO2 03/29/20 11:00 98.7 90 18 145/79 (101) 95 Room Air 98.7 03/28/20 19:40 8 I & O 03/28/20 03/28/20 03/29/20 15:00 23:00 07:00 Intake Total 1700 ml 850 ml 600 ml Output Total 5 ml Balance 1700 ml 845 ml 600 ml Physical Exam Physical Exam: GENERAL: Alert, oriented x 3, well-developed, well-nourished male in no acute distress, pleasant, cooperative. at bedside, nontoxic appearing. HEENT: Normocephalic, atraumatic, anicteric. NECK: Supple, no JVD. LUNGS: Clear bilaterally. No wheezing. HEART: S1, S2. No gallops or murmurs. ABDOMEN: Soft, nontender, nondistended, no rebound, no guarding. EXTREMITIES: No edema, no cyanosis, no clubbing. DERM: Warm and dry. No generalized rash. Right index finger post surgery dressing not opened NEUROLOGIC: Alert and oriented x 3, grossly nonfocal. PSYCHIATRIC: Cooperative, appropriate mood and affect. MUSCULOSKELETAL: As above, right second index finger swelling with tenderness at the tip of the index finger with open wound with mild necrosis. No purulence. Slight decrease in range of motion due to swelling and tightness. General: Alert, Oriented X3, Cooperative, mild distress Heart: Regular rate Lungs: Clear Abdomen: Normal bowel sounds, Soft Extremities: No cyanosis Labs Labs: Laboratory Tests Test 03/28/20 16:05 03/28/20 16:42 03/28/20 19:27 03/28/20 20:43 Sodium Level 137 mmol/L (136-145) Potassium Level 5.2 mmol/L (3.5-5.1) Chloride Level 107 mmol/L (98-107) Carbon Dioxide Level 19 mmol/L (21-32) Anion Gap 11 (6-14) Blood Urea Nitrogen 37 mg/dL (8-26) Creatinine 1.6 mg/dL (0.7-1.3) Estimated GFR (Cockcroft-Gault) 46.0 Glucose Level 138 mg/dL (70-99) Calcium Level 9.0 mg/dL (8.5-10.1) Glucose (Fingerstick) 134 mg/dL (70-99) 120 mg/dL (70-99) 134 mg/dL (70-99) Test 03/29/20 05:20 03/29/20 07:40 White Blood Count 8.2 x10^3/uL (4.0-11.0) Red Blood Count 5.26 x10^6/uL (4.30-5.70) Hemoglobin 14.8 g/dL (13.0-17.5) Hematocrit 46.1 % (39.0-53.0) Mean Corpuscular Volume 88 fL (79-100) Mean Corpuscular Hemoglobin 28 pg (25-35) Mean Corpuscular Hemoglobin Concent 32 g/dL (31-37) Red Cell Distribution Width 17.1 % (11.5-14.5) Platelet Count 256 x10^3/uL (140-400) Neutrophils (%) (Auto) 67 % (31-73) Lymphocytes (%) (Auto) 16 % (24-48) Monocytes (%) (Auto) 9 % (0-9) Eosinophils (%) (Auto) 7 % (0-3) Basophils (%) (Auto) 1 % (0-3) Neutrophils # (Auto) 5.5 x10^3/uL (1.8-7.7) Lymphocytes # (Auto) 1.3 x10^3/uL (1.0-4.8) Monocytes # (Auto) 0.7 x10^3/uL (0.0-1.1) Eosinophils # (Auto) 0.6 x10^3/uL (0.0-0.7) Basophils # (Auto) 0.1 x10^3/uL (0.0-0.2) Sodium Level 140 mmol/L (136-145) Potassium Level 5.4 mmol/L (3.5-5.1) Chloride Level 111 mmol/L (98-107) Carbon Dioxide Level 18 mmol/L (21-32) Anion Gap 11 (6-14) Blood Urea Nitrogen 36 mg/dL (8-26) Creatinine 1.6 mg/dL (0.7-1.3) Estimated GFR (Cockcroft-Gault) 46.0 BUN/Creatinine Ratio 23 (6-20) Glucose Level 119 mg/dL (70-99) Calcium Level 8.5 mg/dL (8.5-10.1) Total Bilirubin 0.4 mg/dL (0.2-1.0) Aspartate Amino Transf (AST/SGOT) 22 U/L (15-37) Alanine Aminotransferase (ALT/SGPT) 21 U/L (16-63) Alkaline Phosphatase 57 U/L (46-116) Total Protein 7.2 g/dL (6.4-8.2) Albumin 2.8 g/dL (3.4-5.0) Albumin/Globulin Ratio 0.6 (1.0-1.7) Glucose (Fingerstick) 116 mg/dL (70-99) Review of Systems Review of Systems: Denies fever, denies shortness of breath, denies chest pain. Assessment and Plan Assessmemt and Plan Problems Medical Problems: (1) Hyperkalemia Status: Acute Comment Review of Relevant I have reviewed the following items isidro (where applicable) has been applied. Medications: Current Medications Medications (Trade) Dose Ordered Sig/Efe Route PRN Reason Start Time Stop Time Status Last Admin Dose Admin Hydralazine HCl (Apresoline) 25 mg TID PO 03/28/20 14:00 03/29/20 08:14 Hydrochlorothiazide (Microzide) 12.5 mg DAILY PO 03/28/20 14:00 03/29/20 08:14 Daptomycin 500 mg/ Sodium Chloride 50 ml @ 100 mls/hr Q24H IV 03/28/20 16:00 03/28/20 16:41 Cefepime HCl (Maxipime) 2 gm Q12HR IVP 03/28/20 15:00 03/29/20 08:14 Justifications for Admission Other Justification ZAKIYA EDMONDS MD Mar 29, 2020 12:30
[2020-03-29] MEDS ORDERED: LOSA100T14 PO (12:47)
--- NOTE | 2020-03-29 14:13 | NUR ---
SS following for discharge planning. SS reviewed pt chart and discussed with pt RN. Pt is from home with spouse and is currently on room air. OT ordered. Pt had right index finger I&D. Pt on IV Daptomycin and IV Cefepime. Discharge plan is currently home when medically ready. SS will continue to follow for discharge planning.
[2020-03-29] MEDS ORDERED: hydrALAZINE 25 MG TABLET PO PRN (14:15)
--- NOTE | 2020-03-29 14:40 | PDOC ---
DATE OF SERVICE: DOS: DATE: 03/29/20 TIME: 14:27 SUBJECTIVE ROS Follow-up for acute on chronic renal insufficiency Patient denies any new complaints today. He does have on and off diarrhea CVS: no Orthopnea, no CP RESP: no SOB, no STEARNS GI: no Nausea, no Vomiting : no Dysuria, no Urgency OBJECTIVE Vital Signs Vital Signs Date Time Temp Pulse Resp B/P (MAP) Pulse Ox O2 Delivery O2 Flow Rate FiO2 03/29/20 11:00 98.7 90 18 145/79 (101) 95 Room Air 98.7 03/28/20 19:40 8 I & 0 Intake and Output 03/29/20 07:00 Intake Total 3150 ml Output Total 5 ml Balance 3145 ml Intake Oral 2300 ml IV Total 850 ml Estimated Blood Loss 5 ml # Bowel Movements 3 PHYSICAL EXAM Physical Exam GEN: Awake, Oriented x 3, In no distress EYES: Vision Unchanged, Conjunctiva Normal EN: No EN Drainage, Mucous Membranes moist NECK: no JVD, no JVP, Supple, no Thyromegaly CVS: S1S2, no Murmur, No Gallop, No Rub,no Edema RESP: no Rales, no Rhonchi,no Acc. Muscle Use GI: BS + ve, NO Bruit, Non Tender, Non Distended : no CVA tenderness, no Suprapubic Tenderness DIAGNOSIS/ASSESSMENT Assessment & Plan DILLON appears to mostly have resolved currently. CKD 3 b - Likely sec to DM, HTN: Follow-up with Dr. Morgan near future HyperKalemia-remains on losartan, will get dietitian to educate regarding low potassium diet. Correct acidosis and reevaluate potassium. RTA cannot be ruled out Metabolic acidosis-IV plus oral NaHCO3 Supplements as ordered HTN -continue losartan. Add HCTZ as he was on it previously. Poorly controlled diabetes Will need follow-up with Dr. Morgan in our office in the next 2 weeks COMMENT/RELEVANT DATA Meds Current Medications Medications (Trade) Dose Ordered Sig/Efe Start Time Stop Time Status Last Admin Dose Admin Acetaminophen/ Hydrocodone Bitart (Lortab 5/325) 1 tab 1X ONCE 03/27/20 23:15 03/27/20 23:16 DC 03/27/20 23:04 1 TAB Acetaminophen/ Hydrocodone Bitart (Lortab 7.5/325) 1 tab PRN Q6HRS PRN 03/28/20 12:15 03/28/20 12:30 1 TAB Al Hydroxide/Mg Hydroxide (Mylanta Plus Xs) 30 ml PRN DAILY PRN 03/28/20 10:45 Albuterol Sulfate (Ventolin Neb Soln) 2.5 mg PRN Q4HRS PRN 03/28/20 10:45 Aspirin (Ecotrin) 81 mg DAILY 03/28/20 11:00 03/29/20 08:14 81 MG Calcium Gluconate (Calcium Gluconate) 1,000 mg 1X ONCE 03/28/20 00:30 03/28/20 00:31 DC 03/28/20 00:33 1,000 MG Cefepime HCl (Maxipime) 2 gm Q12HR 03/28/20 15:00 03/29/20 08:14 2 GM Clonidine HCl (Catapres) 0.1 mg PRN Q6HRS PRN 03/28/20 10:45 Daptomycin 500 mg/ Sodium Chloride 50 ml @ 100 mls/hr Q24H 03/28/20 16:00 03/28/20 16:41 100 MLS/HR Dextrose (Dextrose 50%-Water Syringe) 12.5 gm PRN Q15MIN PRN 03/28/20 07:45 Diphtheria/ Tetanus/Acell Pertussis (ADACEL TDap SYRINGE) 0.5 ml ONCE ONCE 03/28/20 10:30 03/28/20 10:35 DC 03/28/20 11:55 0.5 ML Docusate Sodium (Colace) 100 mg PRN BID PRN 03/28/20 10:45 Enoxaparin Sodium (Lovenox 40mg Syringe) 40 mg Q24H 03/28/20 12:00 03/29/20 12:22 40 MG Fentanyl Citrate (Fentanyl 2ml Vial) 100 mcg STK-MED ONCE 03/28/20 18:40 03/28/20 18:40 DC Guaifenesin (Robitussin) 200 mg PRN Q4HRS PRN 03/28/20 10:45 Hydralazine HCl (Apresoline) 25 mg PRN TID PRN 03/29/20 14:15 Hydrochlorothiazide (Microzide) 12.5 mg DAILY 03/28/20 14:00 03/29/20 12:47 DC 03/29/20 08:14 12.5 MG Hydromorphone HCl (Dilaudid) 0.5 mg PRN Q10MIN PRN 03/28/20 17:15 03/29/20 00:00 DC Insulin Human Lispro (HumaLOG VIAL for OP,RR ONLY) 0-10 units PRN Q1HR PRN 03/28/20 17:15 03/29/20 17:14 Insulin Human Lispro (HumaLOG) 0-7 UNITS TIDWMEALS 03/28/20 08:00 Insulin Human Regular (HumuLIN R VIAL) 10 unit 1X ONCE 03/28/20 00:30 03/28/20 00:31 DC 03/28/20 00:33 10 UNIT Levothyroxine Sodium (Synthroid) 25 mcg DAILY06 03/28/20 10:30 03/29/20 06:26 25 MCG Lidocaine HCl (Lidocaine Pf 2% Vial) 5 ml STK-MED ONCE 03/28/20 17:49 03/28/20 17:49 DC Lorazepam (Ativan) 0.5 mg PRN Q4HRS PRN 03/28/20 10:45 Losartan Potassium (Cozaar) 100 mg DAILY 03/29/20 15:00 Morphine Sulfate (Morphine Sulfate) 1 mg PRN Q10MIN PRN 03/28/20 17:15 03/29/20 00:00 DC Ondansetron HCl (Zofran) 4 mg STK-MED ONCE 03/28/20 18:50 03/28/20 18:50 DC Prochlorperazine Edisylate (Compazine) 5 mg PACU PRN PRN 03/28/20 17:15 03/29/20 00:00 DC Propofol (Diprivan) 200 mg STK-MED ONCE 03/28/20 17:49 03/28/20 17:49 DC Ringer's Solution 1,000 ml @ 30 mls/hr Q24H 03/28/20 17:11 03/29/20 05:10 DC Sevoflurane (Ultane) 30 ml STK-MED ONCE 03/28/20 18:50 03/28/20 18:50 DC Sodium Monofluorophosphate (Fleet Adult) 133 ml PRN DAILY PRN 03/28/20 10:45 Sodium Polystyrene Sulfonate (Kayexalate) 30 gm 1X ONCE 03/28/20 10:30 03/28/20 10:35 DC 03/28/20 10:43 30 GM Sodium Chloride 1,000 ml @ 100 mls/hr Q10H 03/28/20 10:45 03/29/20 12:14 DC 03/29/20 07:18 100 MLS/HR Sodium Chloride (Normal Saline Flush) 3 ml QSHIFT PRN 03/28/20 10:45 Vancomycin HCl (Vanco Per Pharmacy) 1 each PRN DAILY PRN 03/28/20 00:15 03/28/20 13:59 DC 03/28/20 05:03 1 EACH Vancomycin HCl (Vancomycin Trough Level) 1 each 1X ONCE 03/29/20 22:30 03/28/20 14:00 DC Vancomycin HCl 1.5 gm/Sodium Chloride 500 ml @ 250 mls/hr Q24H 03/28/20 23:00 03/28/20 13:58 DC Vancomycin HCl 2 gm/Sodium Chloride 500 ml @ 250 mls/hr 1X ONCE 03/28/20 00:30 03/28/20 02:29 DC 03/28/20 00:34 250 MLS/HR Lab Laboratory Tests Test 03/28/20 16:05 03/28/20 16:42 03/28/20 19:27 03/28/20 20:43 Sodium Level 137 mmol/L (136-145) Potassium Level 5.2 mmol/L (3.5-5.1) Chloride Level 107 mmol/L (98-107) Carbon Dioxide Level 19 mmol/L (21-32) Anion Gap 11 (6-14) Blood Urea Nitrogen 37 mg/dL (8-26) Creatinine 1.6 mg/dL (0.7-1.3) Estimated GFR (Cockcroft-Gault) 46.0 Glucose Level 138 mg/dL (70-99) Calcium Level 9.0 mg/dL (8.5-10.1) Glucose (Fingerstick) 134 mg/dL (70-99) 120 mg/dL (70-99) 134 mg/dL (70-99) Test 03/29/20 05:20 03/29/20 07:40 White Blood Count 8.2 x10^3/uL (4.0-11.0) Red Blood Count 5.26 x10^6/uL (4.30-5.70) Hemoglobin 14.8 g/dL (13.0-17.5) Hematocrit 46.1 % (39.0-53.0) Mean Corpuscular Volume 88 fL (79-100) Mean Corpuscular Hemoglobin 28 pg (25-35) Mean Corpuscular Hemoglobin Concent 32 g/dL (31-37) Red Cell Distribution Width 17.1 % (11.5-14.5) Platelet Count 256 x10^3/uL (140-400) Neutrophils (%) (Auto) 67 % (31-73) Lymphocytes (%) (Auto) 16 % (24-48) Monocytes (%) (Auto) 9 % (0-9) Eosinophils (%) (Auto) 7 % (0-3) Basophils (%) (Auto) 1 % (0-3) Neutrophils # (Auto) 5.5 x10^3/uL (1.8-7.7) Lymphocytes # (Auto) 1.3 x10^3/uL (1.0-4.8) Monocytes # (Auto) 0.7 x10^3/uL (0.0-1.1) Eosinophils # (Auto) 0.6 x10^3/uL (0.0-0.7) Basophils # (Auto) 0.1 x10^3/uL (0.0-0.2) Sodium Level 140 mmol/L (136-145) Potassium Level 5.4 mmol/L (3.5-5.1) Chloride Level 111 mmol/L (98-107) Carbon Dioxide Level 18 mmol/L (21-32) Anion Gap 11 (6-14) Blood Urea Nitrogen 36 mg/dL (8-26) Creatinine 1.6 mg/dL (0.7-1.3) Estimated GFR (Cockcroft-Gault) 46.0 BUN/Creatinine Ratio 23 (6-20) Glucose Level 119 mg/dL (70-99) Calcium Level 8.5 mg/dL (8.5-10.1) Total Bilirubin 0.4 mg/dL (0.2-1.0) Aspartate Amino Transf (AST/SGOT) 22 U/L (15-37) Alanine Aminotransferase (ALT/SGPT) 21 U/L (16-63) Alkaline Phosphatase 57 U/L (46-116) Total Protein 7.2 g/dL (6.4-8.2) Albumin 2.8 g/dL (3.4-5.0) Albumin/Globulin Ratio 0.6 (1.0-1.7) Glucose (Fingerstick) 116 mg/dL (70-99) Results All relevant outside records, renal labs, imaging studies, telemetry/EKG's were reviewed. Justicifation of Admission Dx: Justifications for Admission: Justification of Admission Dx: N/A JIE PUCKETT MD Mar 29, 2020 14:40
[2020-03-29] MEDS: LOSARTAN POTASSIUM 25 MG TABLET. PO SCH (15:00)
[2020-03-29] MEDS: SODIUM BICARB ADULT 8.4% 50 MEQ/50 ML DISP.SYRIN. IV SCH ×2 (15:23→18:51)
[2020-03-29] MEDS: DAPTOmycin (GENERIC) IVPB 500 MG in IV NORMAL SALINE 50ML 50 ML IV SCH (15:24)
--- NOTE | 2020-03-29 17:01 | NUR ---
Wound/Ostomy Care Wound Type/Assessment: Patient seen per wound care consult. See wound assessment. Patient has trauma wound to the right indexfinger that was due to him smashing it with a hammer while at work. Patient had been seen previously in the wound clinic. Patient underwent I&D to the right index finger on 03/28/[address] Woodson. Wound cleansed, assessed, measured, and pictured. Wound is very clean and with granulation and epithelization. Treatment Recommendations/Plan: Recommendations for collagen (left in room) to wound bed, and cover with contact layer and telfa bandaid. Change every other day. Education provided: Patient educated on dressing changes. Patient is independent. Offloading surface/device: N/A Recommended Referrals/Tests: N/A Discharge Recommendations for dressings: Dressing applied. Dressing change instructions left in room, as well as collagen and contact layer for dressing changes. Patient will follow up with us in the wound clinic. Patient in chair at this time and call light in reach. Spoke with RN regarding POC.
[2020-03-29] MEDS: SODIUM BICARBONATE 650 MG TABLET. PO SCH (21:17)
[2020-03-30 02:50] VITALS: BP 120/61
[2020-03-30] MEDS: LEVOTHYROXINE 25 MCG TABLET. PO SCH (06:27)
[2020-03-30 07:00] VITALS: BP 130/58
[2020-03-30] MEDS: INSULIN LISPRO 300 UNITS/3 ML VIAL. SQ SCH ×3 (08:00→16:12)
--- NOTE | 2020-03-30 08:14 | PDOC ---
Infectious Disease Note Subjective Subjective pt is c/o middle finger swelling and pain ROS ROS no n/v/d/sob Vital Sign Vital Signs Vital Signs Date Time Temp Pulse Resp B/P (MAP) Pulse Ox O2 Delivery O2 Flow Rate FiO2 03/30/20 07:00 98.4 95 18 130/58 (82) 96 Room Air 98.4 Physical Exam PHYSICAL EXAM GENERAL: Alert, oriented x 3, well-developed, well-nourished male in no acute distress, pleasant, cooperative. at bedside, nontoxic appearing. HEENT: Normocephalic, atraumatic, anicteric. NECK: Supple, no JVD. LUNGS: Clear bilaterally. No wheezing. HEART: S1, S2. No gallops or murmurs. ABDOMEN: Soft, nontender, nondistended, no rebound, no guarding. EXTREMITIES: No edema, no cyanosis, no clubbing. DERM: Warm and dry. No generalized rash. Right index finger post surgery dressing not opened, middle finger tip has scab, swollen and tender NEUROLOGIC: Alert and oriented x 3, grossly nonfocal. PSYCHIATRIC: Cooperative, appropriate mood and affect. MUSCULOSKELETAL: As above, right second index finger swelling with tenderness at the tip of the index finger with open wound with mild necrosis. No purulence. Slight decrease in range of motion due to swelling and tightness. Labs Lab Laboratory Tests Test 03/29/20 16:30 03/29/20 21:30 03/30/20 07:02 Glucose (Fingerstick) 135 mg/dL (70-99) 137 mg/dL (70-99) 109 mg/dL (70-99) Micro GRAM STAIN Final Final GRAM POSITIVE COCCI:RARE SQUAMOUS EPI CELL:RARE PMN (WBCs):RARE Unless otherwise specified, Testing Performed by: [address] [address] For Inquires, the Physician may contact the Microbiology department at [phone] ANAEROBIC-AEROBIC CULTURE PENDING BC neg Objective Assessment IMPRESSION: 1. Right index finger infection with history of injury about 2 months ago. s/p I and D 2. Diabetes mellitus. 3. Hypertension. 4. Chronic kidney disease. 5. Hyperkalemia. 6. Metabolic acidosis. 7. History of methicillin-resistant Staphylococcus aureus perineal abscess. Plan Plan of Care cont dapto and cefepime check cultures need eval on middle finger MARY ANN PUCKETT MD Mar 30, 2020 08:14
[2020-03-30] MEDS: CEFEPIME HCL IV Push 2 GM VIAL. IVP SCH ×2 (08:21→21:55)
[2020-03-30] MEDS: ASPIRIN ENTERIC COATED 81 MG TABLET.DR. PO SCH (08:21)
[2020-03-30] MEDS: SODIUM BICARBONATE 650 MG TABLET. PO SCH ×3 (08:21→21:55)
[2020-03-30] MEDS: hydroCHLOROthiazide 12.5 MG CAPSULE PO SCH (08:21)
[2020-03-30] MEDS: LOSARTAN POTASSIUM 25 MG TABLET. PO SCH (08:23)
[2020-03-30 08:26] LABS: CALCIUM 8.2 mg/dL (8.5-10.1); CREATININE 1.6 mg/dL (0.7-1.3); POTASSIUM 4.8 mmol/L (3.5-5.1)
[2020-03-30 10:48] VITALS: BP 146/80
[2020-03-30] MEDS ORDERED: traMADol 50 MG TABLET PO PRN (11:30)
--- NOTE | 2020-03-30 11:39 | PDOC ---
[employer] PROGRESS NOTE Date of Service DOS: DATE: 03/30/20 TIME: 11:32 Chief Complaint Chief Complaint CELLULITIS OF FINGER, COMPLICATED Failure of outpatient treatment No RADIOGRAPHIC acute osseous abnormality. no evidence for osteomyelitis of reported swelling/erythema of index finger. DIABETES DILLON metabolic acidosis hyperkalemia CKD Plan: admit CVC BED BLOOD CULTURE ID CONSULT ORTHO CONSULT Nephrology consult dvt prophylaxis iv fluid support avoid nephrotoxins BMP TODAY AT 1500 Kayexylate 30 mg po now x 1 A1C NPO for OR TODAY IV DAPTOMYCIN History of Present Illness History of Present Illness SEEN IN ER WITH SEVERE CELLULITIS OF DIGIT 49 year old AA male, accompanied by his , who presents emergency department with concerns of pain, redness, and warmth in his right index finger that is increased over the last 3 days. He reports that the pain now radiates from the tip of his finger all the way to the palm of his hand. Patient states he has been seeing the wound care center for a wound to the lateral distal end of his right index finger for the last 8 weeks. Patient states he last took oral antibiotics over a month ago for the infection. He states that the wound care doctor has been having him apply a medication to help soften the wound area. He denies any fever, cough, shortness of breath, nausea, vomiting, diarrhea, abdominal pain, body aches, or fatigue. He denies any decreased sensation, numbness, or tingling in the affected hand. Patient reports that he has noticed increased areas of lightening skin to his scalp, face and his right hand. Currently rates his pain a 5 out of 10 on the pain scale, he denies any alleviating factors, he states that the pain becomes excruciating if the area is touched or if he moves his finger. 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 Continue cefepime and daptomycin, per ID. Pain is well controlled. 03/30: Patient seen and evaluated with at bedside. Reports some concern that his painful right third finger is becoming swollen possibly infected as well. Continue IV antibiotics, per ID. Discussed with RN, will attempt to reach out to orthopedic surgery for reevaluation of right third finger. Vitals/I&O Vitals/I&O: Vital Signs Date Time Temp Pulse Resp B/P (MAP) Pulse Ox O2 Delivery O2 Flow Rate FiO2 03/30/20 10:48 98.4 88 18 146/80 (102) 97 Room Air 98.4 I & O 03/29/20 03/29/20 03/30/20 15:00 23:00 07:00 Intake Total 500 ml 200 ml 600 ml Balance 500 ml 200 ml 600 ml Physical Exam Physical Exam: GENERAL: Alert, oriented x 3, well-developed, well-nourished male in no acute distress, pleasant, cooperative. at bedside, nontoxic appearing. HEENT: Normocephalic, atraumatic, anicteric. NECK: Supple, no JVD. LUNGS: Clear bilaterally. No wheezing. HEART: S1, S2. No gallops or murmurs. ABDOMEN: Soft, nontender, nondistended, no rebound, no guarding. EXTREMITIES: No edema, no cyanosis, no clubbing. DERM: Warm and dry. No generalized rash. Right index finger post surgery dressing not opened, middle finger tip has scab, swollen and tender NEUROLOGIC: Alert and oriented x 3, grossly nonfocal. PSYCHIATRIC: Cooperative, appropriate mood and affect. MUSCULOSKELETAL: As above, right significant with resolving swelling and tenderness, bandages in place. Right third finger with tenderness at the tip of the index finger with open wound w/o necrosis. No purulence. Slight swelling and tightness. Labs Labs: Laboratory Tests Test 03/29/20 16:30 03/29/20 21:30 03/30/20 07:02 03/30/20 07:13 Glucose (Fingerstick) 135 mg/dL (70-99) 137 mg/dL (70-99) 109 mg/dL (70-99) Sodium Level 142 mmol/L (136-145) Potassium Level 4.8 mmol/L (3.5-5.1) Chloride Level 109 mmol/L (98-107) Carbon Dioxide Level 18 mmol/L (21-32) Anion Gap 15 (6-14) Blood Urea Nitrogen 33 mg/dL (8-26) Creatinine 1.6 mg/dL (0.7-1.3) Estimated GFR (Cockcroft-Gault) 46.0 Glucose Level 101 mg/dL (70-99) Calcium Level 8.2 mg/dL (8.5-10.1) Test 03/30/20 11:14 Glucose (Fingerstick) 139 mg/dL (70-99) Review of Systems Review of Systems: Right second and third finger pain. Denies fever, denies nausea. Assessment and Plan Assessmemt and Plan Problems Medical Problems: (1) Hyperkalemia Status: Acute Problems: (1) Cellulitis of right hand (2) Hyperkalemia Comment Review of Relevant I have reviewed the following items isidro (where applicable) has been applied. Medications: Current Medications Medications (Trade) Dose Ordered Sig/Efe Route PRN Reason Start Time Stop Time Status Last Admin Dose Admin Losartan Potassium (Cozaar) 100 mg DAILY PO 03/29/20 15:00 03/30/20 08:23 Sodium Bicarbonate (Sodium Bicarb Adult 8.4% Syr) 50 meq Q2H IV 03/29/20 15:00 03/29/20 17:01 DC 03/29/20 18:51 Hydrochlorothiazide (Microzide) 12.5 mg DAILY PO 03/30/20 09:00 03/30/20 08:21 Sodium Bicarbonate (Sodium Bicarbonate) 650 mg TID PO 03/29/20 21:00 03/30/20 08:21 Justifications for Admission Other Justification ZAKIYA EDMONDS MD Mar 30, 2020 11:39
[2020-03-30] MEDS: ENOXAPARIN 40 MG/0.4 ML SYRINGE. SQ SCH (12:11)
--- NOTE | 2020-03-30 12:28 | PDOC ---
DATE OF SERVICE: DOS: DATE: 03/30/20 TIME: 12:14 SUBJECTIVE ROS Follow-up of acute on chronic renal insufficiency Denies any further diarrhea currently. He does have lesion on his middle finger today CVS: no Orthopnea, no CP RESP: no SOB, no STEARNS GI: no Nausea, no Vomiting, no diarrhea : no Dysuria, no Urgency OBJECTIVE Vital Signs Vital Signs Date Time Temp Pulse Resp B/P (MAP) Pulse Ox O2 Delivery O2 Flow Rate FiO2 03/30/20 10:48 98.4 88 18 146/80 (102) 97 Room Air 98.4 I & 0 Intake and Output 03/30/20 07:00 Intake Total 1300 ml Balance 1300 ml Intake Oral 1300 ml # Voids 2 # Bowel Movements 1 PHYSICAL EXAM Physical Exam GEN: Awake, Oriented x 3, In no distress EYES: Vision Unchanged, Conjunctiva Normal EN: No EN Drainage, Mucous Membranes moist NECK: no JVD, no JVP, Supple, no Thyromegaly CVS: S1S2, no Murmur, No Gallop, No Rub,no Edema RESP: no Rales, no Rhonchi,no Acc. Muscle Use GI: BS + ve, NO Bruit, Non Tender, Non Distended : no CVA tenderness, no Suprapubic Tenderness DIAGNOSIS/ASSESSMENT Assessment & Plan CKD 3 b - Likely sec to DM, HTN: Follow-up with Dr. Morgan near future HyperKalemia-remains on losartan, have requested dietitian to educate regarding low potassium diet. Correct acidosis and reevaluate potassium. RTA IV cannot be ruled out Metabolic acidosis-increase oral NaHCO3 Supplements as ordered HTN -continue losartan for now and have added HCTZ as he was on it previously. May need to increase HCTZ also diabetes: Patient claims his most recent A1c 2 weeks ago was 6.[address] Sanderson Will need follow-up with Dr. Morgan in our office in the next 2-3 weeks COMMENT/RELEVANT DATA Meds Current Medications Medications (Trade) Dose Ordered Sig/Efe Start Time Stop Time Status Last Admin Dose Admin Acetaminophen/ Hydrocodone Bitart (Lortab 5/325) 1 tab 1X ONCE 03/27/20 23:15 03/27/20 23:16 DC 03/27/20 23:04 1 TAB Acetaminophen/ Hydrocodone Bitart (Lortab 7.5/325) 1 tab PRN Q6HRS PRN 03/28/20 12:15 03/28/20 12:30 1 TAB Al Hydroxide/Mg Hydroxide (Mylanta Plus Xs) 30 ml PRN DAILY PRN 03/28/20 10:45 Albuterol Sulfate (Ventolin Neb Soln) 2.5 mg PRN Q4HRS PRN 03/28/20 10:45 Aspirin (Ecotrin) 81 mg DAILY 03/28/20 11:00 03/30/20 08:21 81 MG Calcium Gluconate (Calcium Gluconate) 1,000 mg 1X ONCE 03/28/20 00:30 03/28/20 00:31 DC 03/28/20 00:33 1,000 MG Cefepime HCl (Maxipime) 2 gm Q12HR 03/28/20 15:00 03/30/20 08:21 2 GM Clonidine HCl (Catapres) 0.1 mg PRN Q6HRS PRN 03/28/20 10:45 03/29/20 14:30 DC Daptomycin 500 mg/ Sodium Chloride 50 ml @ 100 mls/hr Q24H 03/28/20 16:00 03/29/20 15:24 100 MLS/HR Dextrose (Dextrose 50%-Water Syringe) 12.5 gm PRN Q15MIN PRN 03/28/20 07:45 Diphtheria/ Tetanus/Acell Pertussis (ADACEL TDap SYRINGE) 0.5 ml ONCE ONCE 03/28/20 10:30 03/28/20 10:35 DC 03/28/20 11:55 0.5 ML Docusate Sodium (Colace) 100 mg PRN BID PRN 03/28/20 10:45 Enoxaparin Sodium (Lovenox 40mg Syringe) 40 mg Q24H 03/28/20 12:00 03/29/20 12:22 40 MG Fentanyl Citrate (Fentanyl 2ml Vial) 100 mcg STK-MED ONCE 03/28/20 18:40 03/28/20 18:40 DC Guaifenesin (Robitussin) 200 mg PRN Q4HRS PRN 03/28/20 10:45 Hydralazine HCl (Apresoline) 25 mg PRN TID PRN 03/29/20 14:15 Hydrochlorothiazide (Microzide) 12.5 mg DAILY 03/30/20 09:00 03/30/20 08:21 12.5 MG Hydromorphone HCl (Dilaudid) 0.5 mg PRN Q10MIN PRN 03/28/20 17:15 03/29/20 00:00 DC Insulin Human Lispro (HumaLOG VIAL for OP,RR ONLY) 0-10 units PRN Q1HR PRN 03/28/20 17:15 03/29/20 17:14 DC Insulin Human Lispro (HumaLOG) 0-7 UNITS TIDWMEALS 03/28/20 08:00 Insulin Human Regular (HumuLIN R VIAL) 10 unit 1X ONCE 03/28/20 00:30 03/28/20 00:31 DC 03/28/20 00:33 10 UNIT Lactobacillus Rhamnosus (Culturelle) 1 cap BID 03/30/20 21:00 Levothyroxine Sodium (Synthroid) 25 mcg DAILY06 03/28/20 10:30 03/30/20 06:27 25 MCG Lidocaine HCl (Lidocaine Pf 2% Vial) 5 ml STK-MED ONCE 03/28/20 17:49 03/28/20 17:49 DC Lorazepam (Ativan) 0.5 mg PRN Q4HRS PRN 03/28/20 10:45 Losartan Potassium (Cozaar) 100 mg DAILY 03/29/20 15:00 03/30/20 08:23 100 MG Morphine Sulfate (Morphine Sulfate) 1 mg PRN Q10MIN PRN 03/28/20 17:15 03/29/20 00:00 DC Ondansetron HCl (Zofran) 4 mg STK-MED ONCE 03/28/20 18:50 03/28/20 18:50 DC Prochlorperazine Edisylate (Compazine) 5 mg PACU PRN PRN 03/28/20 17:15 03/29/20 00:00 DC Propofol (Diprivan) 200 mg STK-MED ONCE 03/28/20 17:49 03/28/20 17:49 DC Ringer's Solution 1,000 ml @ 30 mls/hr Q24H 03/28/20 17:11 03/29/20 05:10 DC Sevoflurane (Ultane) 30 ml STK-MED ONCE 03/28/20 18:50 03/28/20 18:50 DC Sodium Monofluorophosphate (Fleet Adult) 133 ml PRN DAILY PRN 03/28/20 10:45 03/29/20 14:30 DC Sodium Polystyrene Sulfonate (Kayexalate) 30 gm 1X ONCE 03/28/20 10:30 03/28/20 10:35 DC 03/28/20 10:43 30 GM Sodium Bicarbonate (Sodium Bicarbonate) 650 mg TID 03/29/20 21:00 03/30/20 08:21 650 MG Sodium Bicarbonate (Sodium Bicarb Adult 8.4% Syr) 50 meq Q2H 03/29/20 15:00 03/29/20 17:01 DC 03/29/20 18:51 50 MEQ Sodium Chloride 1,000 ml @ 100 mls/hr Q10H 03/28/20 10:45 03/29/20 12:14 DC 03/29/20 07:18 100 MLS/HR Sodium Chloride (Normal Saline Flush) 3 ml QSHIFT PRN 03/28/20 10:45 Tramadol HCl (Ultram) 50 mg PRN Q6HRS PRN 03/30/20 11:30 Vancomycin HCl (Vanco Per Pharmacy) 1 each PRN DAILY PRN 03/28/20 00:15 03/28/20 13:59 DC 03/28/20 05:03 1 EACH Vancomycin HCl (Vancomycin Trough Level) 1 each 1X ONCE 03/29/20 22:30 03/28/20 14:00 DC Vancomycin HCl 1.5 gm/Sodium Chloride 500 ml @ 250 mls/hr Q24H 03/28/20 23:00 03/28/20 13:58 DC Vancomycin HCl 2 gm/Sodium Chloride 500 ml @ 250 mls/hr 1X ONCE 03/28/20 00:30 03/28/20 02:29 DC 03/28/20 00:34 250 MLS/HR Lab Laboratory Tests Test 03/29/20 16:30 03/29/20 21:30 03/30/20 07:02 03/30/20 07:13 Glucose (Fingerstick) 135 mg/dL (70-99) 137 mg/dL (70-99) 109 mg/dL (70-99) Sodium Level 142 mmol/L (136-145) Potassium Level 4.8 mmol/L (3.5-5.1) Chloride Level 109 mmol/L (98-107) Carbon Dioxide Level 18 mmol/L (21-32) Anion Gap 15 (6-14) Blood Urea Nitrogen 33 mg/dL (8-26) Creatinine 1.6 mg/dL (0.7-1.3) Estimated GFR (Cockcroft-Gault) 46.0 Glucose Level 101 mg/dL (70-99) Calcium Level 8.2 mg/dL (8.5-10.1) Test 03/30/20 11:14 Glucose (Fingerstick) 139 mg/dL (70-99) Results All relevant outside records, renal labs, imaging studies, telemetry/EKG's were reviewed. Justicifation of Admission Dx: Justifications for Admission: Justification of Admission Dx: N/A JIE PUCKETT MD Mar 30, 2020 12:28
[2020-03-30 14:43] VITALS: BP 145/71
[2020-03-30] MEDS: DAPTOmycin (GENERIC) IVPB 500 MG in IV NORMAL SALINE 50ML 50 ML IV SCH (15:59)
--- NOTE | 2020-03-30 16:11 | NUR ---
SS following up with discharge planning. SS reviewed pt chart and discussed with pt RN. Pt is currently on room air. Pt on IV Daptomycin and IV Cefepime. COVID19 negative. Cultures pending. Ortho consulted. SS will continue to follow for discharge planning.
[2020-03-30] MEDS ORDERED: INSULIN LISPRO 100 UNIT/ML 3ML VIAL for OP,RR ONLY. SQ PRN (16:45)
--- NOTE | 2020-03-30 16:45 | PDOC ---
PROGRESS NOTES Date of Service DATE: 03/30/20 TIME: 16:41 Subjective Subjective Problems overnight: Mr. Stein right index finger is now much improved he can move it fully and really does not have any significant pain. He indicates worsening pain however and his right long fingertip where it was just initially painful but is now forming a similar scabbed area to what he had had on the left index finger and it is becoming more tender sore and stiff Objective Vital Signs Vital Signs Date Time Temp Pulse Resp B/P (MAP) Pulse Ox O2 Delivery O2 Flow Rate FiO2 03/30/20 14:43 98.5 90 18 145/71 (95) 97 Room Air 98.5 03/28/20 19:40 8 Physical Exam On exam he is indeed got a lot of tenderness at the fingertip and developed a black scabbed eschar type area over the fingertip just adjacent to his fingernail he is tender diffusely over the finger not necessarily proximally over the tendon sheath on any of the fingers but really over the distal phalange of the right long finger is very tender diffusely Labs Laboratory Tests Test 03/28/20 16:42 03/28/20 19:27 03/28/20 20:43 03/29/20 05:20 Glucose (Fingerstick) 134 mg/dL (70-99) 120 mg/dL (70-99) 134 mg/dL (70-99) White Blood Count 8.2 x10^3/uL (4.0-11.0) Red Blood Count 5.26 x10^6/uL (4.30-5.70) Hemoglobin 14.8 g/dL (13.0-17.5) Hematocrit 46.1 % (39.0-53.0) Mean Corpuscular Volume 88 fL (79-100) Mean Corpuscular Hemoglobin 28 pg (25-35) Mean Corpuscular Hemoglobin Concent 32 g/dL (31-37) Red Cell Distribution Width 17.1 % (11.5-14.5) Platelet Count 256 x10^3/uL (140-400) Neutrophils (%) (Auto) 67 % (31-73) Lymphocytes (%) (Auto) 16 % (24-48) Monocytes (%) (Auto) 9 % (0-9) Eosinophils (%) (Auto) 7 % (0-3) Basophils (%) (Auto) 1 % (0-3) Neutrophils # (Auto) 5.5 x10^3/uL (1.8-7.7) Lymphocytes # (Auto) 1.3 x10^3/uL (1.0-4.8) Monocytes # (Auto) 0.7 x10^3/uL (0.0-1.1) Eosinophils # (Auto) 0.6 x10^3/uL (0.0-0.7) Basophils # (Auto) 0.1 x10^3/uL (0.0-0.2) Sodium Level 140 mmol/L (136-145) Potassium Level 5.4 mmol/L (3.5-5.1) Chloride Level 111 mmol/L (98-107) Carbon Dioxide Level 18 mmol/L (21-32) Anion Gap 11 (6-14) Blood Urea Nitrogen 36 mg/dL (8-26) Creatinine 1.6 mg/dL (0.7-1.3) Estimated GFR (Cockcroft-Gault) 46.0 BUN/Creatinine Ratio 23 (6-20) Glucose Level 119 mg/dL (70-99) Calcium Level 8.5 mg/dL (8.5-10.1) Total Bilirubin 0.4 mg/dL (0.2-1.0) Aspartate Amino Transf (AST/SGOT) 22 U/L (15-37) Alanine Aminotransferase (ALT/SGPT) 21 U/L (16-63) Alkaline Phosphatase 57 U/L (46-116) Total Protein 7.2 g/dL (6.4-8.2) Albumin 2.8 g/dL (3.4-5.0) Albumin/Globulin Ratio 0.6 (1.0-1.7) Test 03/29/20 07:40 03/29/20 16:30 03/29/20 21:30 03/30/20 07:02 Glucose (Fingerstick) 116 mg/dL (70-99) 135 mg/dL (70-99) 137 mg/dL (70-99) 109 mg/dL (70-99) Test 03/30/20 07:13 03/30/20 11:14 03/30/20 16:03 Sodium Level 142 mmol/L (136-145) Potassium Level 4.8 mmol/L (3.5-5.1) Chloride Level 109 mmol/L (98-107) Carbon Dioxide Level 18 mmol/L (21-32) Anion Gap 15 (6-14) Blood Urea Nitrogen 33 mg/dL (8-26) Creatinine 1.6 mg/dL (0.7-1.3) Estimated GFR (Cockcroft-Gault) 46.0 Glucose Level 101 mg/dL (70-99) Calcium Level 8.2 mg/dL (8.5-10.1) Glucose (Fingerstick) 139 mg/dL (70-99) 106 mg/dL (70-99) Laboratory Tests Test 03/29/20 21:30 03/30/20 07:02 03/30/20 07:13 03/30/20 11:14 Glucose (Fingerstick) 137 mg/dL (70-99) 109 mg/dL (70-99) 139 mg/dL (70-99) Sodium Level 142 mmol/L (136-145) Potassium Level 4.8 mmol/L (3.5-5.1) Chloride Level 109 mmol/L (98-107) Carbon Dioxide Level 18 mmol/L (21-32) Anion Gap 15 (6-14) Blood Urea Nitrogen 33 mg/dL (8-26) Creatinine 1.6 mg/dL (0.7-1.3) Estimated GFR (Cockcroft-Gault) 46.0 Glucose Level 101 mg/dL (70-99) Calcium Level 8.2 mg/dL (8.5-10.1) Test 03/30/20 16:03 Glucose (Fingerstick) 106 mg/dL (70-99) Assessment Assessment POD#irrigation debridement of right index finger with now involvement of right long finger Plan Plan of Care I went over with him that the previous surgery was superficial really did not involve the tendon sheath area but he is with far too tender to perform anything at the bedside and therefore given that he had last eaten at noon would like to proceed with I&D of his right long finger perhaps under moderate sedation or what ever is required to allow performance of the procedure this evening after 6 hours n.p.o. he agrees to proceed and will be scheduled with surgery Justicifation of Admission Dx: Justifications for Admission: Justification of Admission Dx: N/A JODI VINSON MD Mar 30, 2020 16:45
[2020-03-30] MEDS ORDERED: IV RINGERS,LACTATED 1000ML 1,000 ML IV SCH (17:04)
[2020-03-30] MEDS ORDERED: HYDROmorphone 2 MG/ML VIAL IV PRN (17:15)
[2020-03-30] MEDS ORDERED: PROCHLORPERAZINE 10 MG/2 ML VIAL. IV PRN (17:15)
[2020-03-30] MEDS ORDERED: MORPHINE SULFATE 2 MG/ML VIAL. IV PRN (17:15)
[2020-03-30] MEDS ORDERED: LIDOCAINE 1% PF 2 ML VIAL. ID PRN (17:15)
[2020-03-30] MEDS ORDERED: fentaNYL PF VIAL 100 MCG/2 ML VIAL IV PRN (17:15)
[2020-03-30] MEDS ORDERED: ONDANSETRON PF 4 MG/2 ML VIAL. IV PRN (17:15)
[2020-03-30] MEDS ORDERED: fentaNYL PF VIAL 100 MCG/2 ML VIAL ONE ×2 (17:48→20:43)
[2020-03-30] MEDS ORDERED: PROPOFOL 10 MG/ML (20ML) VIAL. IV ONE (17:48)
[2020-03-30] MEDS ORDERED: LIDOCAINE 2% PF 5 ML VIAL. ONE (17:48)
[2020-03-30] MEDS ORDERED: DEXAMETHASONE SOD PHOS 4 MG/ML VIAL ONE (20:00)
[2020-03-30] MEDS ORDERED: SEVOFLURANE 31 TO 60 MINUTES. IH ONE (20:00)
[2020-03-30] MEDS ORDERED: PHENYLEPHRINE in 0.9% NACL PF 1 MG/10 ML SYRINGE. IV ONE (20:04)
[2020-03-30] MEDS ORDERED: ONDANSETRON PF 4 MG/2 ML VIAL. ONE (20:14)
[2020-03-30] MEDS: fentaNYL PF VIAL 100 MCG/2 ML VIAL IV PRN ×2 (20:48→21:18)
[2020-03-30] MEDS: LACTOBACILLUS RHAMNOSUS GG 1 CAPSULE. PO SCH (21:55)
[2020-03-30 22:38] VITALS: BP 166/85
--- NOTE | 2020-03-30 22:44 | PDOC4 ---
Operative Note Operative Note Date of surgery: 03/30/2020 Preoperative diagnosis: Right long finger infection, possible flexor tenosynovitis Postoperative diagnosis: Right long finger infection with skin subcutaneous and fascia involvement, not involving flexor tendon sheath Operative procedure: Irrigation debridement right long finger involving skin subcutaneous tissue and fascia Surgeon: Chintan Anesthesia: General Estimated blood loss: 5 cc Complications: None Operative indications: Please see my dictated orthopedic consultation and today's progress note for detailed operative indications Operative text: Patient was identified procedure verified patient placed in the supine position on the operating table. After adequate amounts of general anesthesia were administered the right upper extremity was prepped and draped in standard sterile fashion. After timeout was performed patient procedure identified and verified the necrotic tissue at the distal fingertip was unroofed and purulent drainage was noted. Devitalized tissue consisting of skin subcutaneous tissue and fascia was debrided sharply with a rongeur and scalpel back to healthy tissue. There was no involvement to the flexor tendon sheath and the nailbed was unaffected. Distal fingernail was trimmed to avoid retention of any devitalized tissue adjacent. Thorough irrigation carried out with bulb syringe sterile dressings Xeroform gauze 4 x 4's and tube gauze were placed. Patient was returned to recovery room in stable condition having tolerated the procedure well JODI VINSON MD Mar 30, 2020 22:44
[2020-03-31] MEDS: LEVOTHYROXINE 25 MCG TABLET. PO SCH (03:33)
[2020-03-31] MEDS: HYDROcodone/APAP 7.5/325MG 1 TAB TABLET PO PRN ×2 (03:34→15:11)
[2020-03-31 03:38] VITALS: BP 145/79
[2020-03-31 07:00] VITALS: BP 132/75
[2020-03-31] MEDS: INSULIN LISPRO 300 UNITS/3 ML VIAL. SQ SCH ×2 (08:00→12:00)
--- NOTE | 2020-03-31 08:41 | PDOC ---
Infectious Disease Note Subjective Subjective Patient had I&D on the middle finger and feeling much better ROS ROS No nausea vomiting diarrhea feeling better Vital Sign Vital Signs Vital Signs Date Time Temp Pulse Resp B/P (MAP) Pulse Ox O2 Delivery O2 Flow Rate FiO2 03/31/20 07:00 97.5 82 20 132/75 (94) 95 Room Air 97.5 03/30/20 20:48 10.0 Physical Exam PHYSICAL EXAM GENERAL: Alert, oriented x 3, well-developed, well-nourished male in no acute distress, pleasant, cooperative. at bedside, nontoxic appearing. HEENT: Normocephalic, atraumatic, anicteric. NECK: Supple, no JVD. LUNGS: Clear bilaterally. No wheezing. HEART: S1, S2. No gallops or murmurs. ABDOMEN: Soft, nontender, nondistended, no rebound, no guarding. EXTREMITIES: No edema, no cyanosis, no clubbing. DERM: Warm and dry. No generalized rash. Right index finger post surgery dressing not opened, middle finger tip has scab, swollen and tender NEUROLOGIC: Alert and oriented x 3, grossly nonfocal. PSYCHIATRIC: Cooperative, appropriate mood and affect. MUSCULOSKELETAL: As above, right significant with resolving swelling and tenderness, bandages in place. at the tip of the index finger with open wound w/o necrosis. No purulence. Slight swelling and tightness. Labs Lab Laboratory Tests Test 03/30/20 11:14 03/30/20 16:03 03/30/20 18:22 03/31/20 07:11 Glucose (Fingerstick) 139 mg/dL (70-99) 106 mg/dL (70-99) 114 mg/dL (70-99) 157 mg/dL (70-99) Test 03/31/20 07:40 Creatine Kinase 123 U/L (39-308) Micro GRAM STAIN Final Final GRAM POSITIVE COCCI:RARE SQUAMOUS EPI CELL:RARE PMN (WBCs):RARE Unless otherwise specified, Testing Performed by: [address] [address] For Inquires, the Physician may contact the Microbiology department at [phone] ANAEROBIC-AEROBIC CULTURE PENDING BC neg Objective Assessment IMPRESSION: 1. Right index finger infection with history of injury about 2 months ago. s/p I and D an incision and drainage on the middle finger 2. Diabetes mellitus. 3. Hypertension. 4. Chronic kidney disease. 5. Hyperkalemia. 6. Metabolic acidosis. 7. History of methicillin-resistant Staphylococcus aureus perineal abscess. Plan Plan of Care Change antibiotics to p.o. Zyvox depending upon MRSA or MSSA patient can be discharged on oral antibiotics Discussed with patient and patient's MARY ANN PUCKETT MD Mar 31, 2020 08:41
[2020-03-31] MEDS: LACTOBACILLUS RHAMNOSUS GG 1 CAPSULE. PO SCH (09:06)
[2020-03-31] MEDS: SODIUM BICARBONATE 650 MG TABLET. PO SCH (09:06)
[2020-03-31] MEDS: ASPIRIN ENTERIC COATED 81 MG TABLET.DR. PO SCH (09:06)
[2020-03-31] MEDS: hydroCHLOROthiazide 12.5 MG CAPSULE PO SCH (09:06)
[2020-03-31] MEDS: LOSARTAN POTASSIUM 25 MG TABLET. PO SCH (09:07)
[2020-03-31] MEDS: CEFEPIME HCL IV Push 2 GM VIAL. IVP SCH (09:10)
--- NOTE | 2020-03-31 10:59 | EKG ---
[facility] [address] [place] [address] Test Date: 2020-03-28 Test Time: 00:30:17 Pat Name: CORIE CHANG Department: Room: Gender: M Sign Language Translator: : 1970 Requested By: KAMILA SHEA Order Number: [id number] Reading MD: Measurements Intervals [place] Rate: 83 P: 52 WI: 140 QRS: 53 QRSD: 86 T: 46 QT: 368 QTc: 438 Interpretive Statements SINUS RHYTHM LEFT ATRIAL ABNORMALITY ABNORMAL ECG RI6.02 No previous ECG available for comparison
[2020-03-31 11:00] VITALS: BP 146/88
--- NOTE | 2020-03-31 11:11 | NUR ---
SS following up with discharge planning. SS reviewed pt chart and discussed with pt RN. Pt is currently on room air. COVID19 negative. Pt had I&D on middle finger on 03/30/2020. Pt being switched to PO Zyvox. Possible discharge to home today. SS will continue to follow for discharge planning.
[2020-03-31] MEDS: ENOXAPARIN 40 MG/0.4 ML SYRINGE. SQ SCH (12:00)
[2020-03-31] MEDS ORDERED: LACT1CAP19 PO (12:36)
[2020-03-31] MEDS ORDERED: LINE600T12 PO (12:36)
[2020-03-31] MEDS ORDERED: TRAM50TA PO (12:36)
[2020-03-31] MEDS ORDERED: ACET325T9 PO (12:39)
--- NOTE | 2020-03-31 12:42 | PDOC3 ---
Discharge Summary Visit Information Date of Admission: Mar 28, 2020 Date of Discharge: Mar 31, 2020 Final Diagnosis CELLULITIS OF FINGER, COMPLICATED Failure of outpatient treatment no evidence for osteomyelitis of reported swelling/erythema of index finger. DIABETES type 2, moderate good control DILLON, vasomotor metabolic acidosis hyperkalemia CKD 3 Problems Medical Problems: (1) Hyperkalemia Status: Acute Brief Hospital Course Allergies Allergies Coded Allergies Type Severity Reaction Last Updated Verified GINETTE Inhibitors Allergy Intermediate COUGH 03/31/20 Yes I S O L A T I O N *CONTACT* Allergy Unknown 03/30/20 Yes Vital Signs Vital Signs Date Time Temp Pulse Resp B/P (MAP) Pulse Ox O2 Delivery O2 Flow Rate FiO2 03/31/20 11:00 98.0 89 20 146/88 (107) 96 Room Air 98.0 03/30/20 20:48 10.0 Lab Results Laboratory Tests Test 03/29/20 16:30 03/29/20 21:30 03/30/20 07:02 03/30/20 07:13 Glucose (Fingerstick) 135 mg/dL (70-99) 137 mg/dL (70-99) 109 mg/dL (70-99) Sodium Level 142 mmol/L (136-145) Potassium Level 4.8 mmol/L (3.5-5.1) Chloride Level 109 mmol/L (98-107) Carbon Dioxide Level 18 mmol/L (21-32) Anion Gap 15 (6-14) Blood Urea Nitrogen 33 mg/dL (8-26) Creatinine 1.6 mg/dL (0.7-1.3) Estimated GFR (Cockcroft-Gault) 46.0 Glucose Level 101 mg/dL (70-99) Calcium Level 8.2 mg/dL (8.5-10.1) Test 03/30/20 11:14 03/30/20 16:03 03/30/20 18:22 03/31/20 07:11 Glucose (Fingerstick) 139 mg/dL (70-99) 106 mg/dL (70-99) 114 mg/dL (70-99) 157 mg/dL (70-99) Test 03/31/20 07:40 03/31/20 11:39 Creatine Kinase 123 U/L (39-308) Glucose (Fingerstick) 132 mg/dL (70-99) Laboratory Tests Test 03/30/20 16:03 03/30/20 18:22 03/31/20 07:11 03/31/20 07:40 Glucose (Fingerstick) 106 mg/dL (70-99) 114 mg/dL (70-99) 157 mg/dL (70-99) Creatine Kinase 123 U/L (39-308) Test 03/31/20 11:39 Glucose (Fingerstick) 132 mg/dL (70-99) Brief Hospital Course Mr. Stein is a 49 old diabetic, admit with finger lesions, infection that req. I and D x2, surg on 03/29 and 03/[address] Woodson, ortho wound clear, abx OK, ID consultedd, planned DC with zyvox, acidosis, CKD noted, bicarb PO started Discharge Information Condition at Discharge: Improved Follow Up: Weeks Disposition/Orders: D/C to Home Scheduled Aspirin (Aspir 81) 81 Mg Tablet.dr, 1 TAB PO DAILY, #30 Ref 5 (Reported) Entered as Reported by: JET HELM on 07/21/15 1424 Last Action: Continued on 03/28/20 1031 by NERISSA VALDEZ RN Lactobacillus Rhamnosus Gg (Culturelle) 1 Each Cap.sprink, 1 CAP PO BID for gut health on antibiotics, #30 Prescribed by: JUNIOR ALVARENGA on 03/31/20 1236 Levothyroxine Sodium (Synthroid) 25 Mcg Tablet, 1 TAB PO DAILY, #30 Ref 5 (Repor marta) Entered as Reported by: SWAPNIL CASTRO on 06/22/15 0901 Last Action: Continued on 03/28/20 1031 by NERISSA VALDEZ RN Linezolid (Zyvox) 600 Mg Tablet, 600 MG PO BID for finger infection, #20 Prescribed by: JUNIOR ALVARENGA on 03/31/20 1236 Losartan Potassium (Losartan Potassium) 100 Mg Tablet, 100 MG PO DAILY for HYPERTENSION, (Reported) Entered as Reported by: PERLA RAY on 03/29/20 1247 Last Action: New Order on 03/29/20 1247 by PERLA RAY Sodium Bicarbonate (Sodium Bicarbonate) 650 Mg Tablet, 1,300 MG PO BID for renal function, acid level , #60 Ref 1 Prescribed by: JUNIOR ALVARENGA on 03/31/20 1244 Scheduled PRN Acetaminophen (Tylenol) 325 Mg Tablet, 2 TAB PO QID PRN for PAIN, #60 Prescribed by: JUNIOR ALVARENGA on 03/31/20 1239 Tramadol Hcl (Tramadol Hcl) 50 Mg Tablet, 50 MG PO PRN Q6HRS PRN for PAIN, #20 Prescribed by: JUNIOR ALVARENGA on 03/31/20 1238 Miscellaneous Medications Empagliflozin (Jardiance) 10 Mg Tablet, 10 MG PO, (Reported) Entered as Reported by: SWAPNIL CASTRO on 06/22/15900 Last Action: Reviewed on 03/28/20620 by ANUPAMA JOVEL Discontinued Medications Insulin Aspart (Novolog) 100 Unit/1 Ml Cartridge, 35 UNIT SQ TIDAC, (Reported) Entered as Reported by: SWAPNIL CASTRO on 06/22/15900 Last Action: Discontinued on 03/28/20427 by ANUPAMA JOVEL Insulin Detemir (Levemir) 100 Unit/1 Ml Vial, 70 UNIT SQ HS, (Reported) Entered as Reported by: SWAPNIL CASTRO on 06/22/15900 Last Action: Discontinued on 03/28/20427 by ANUPAMA JOVEL Losartan/Hydrochlorothiazide (Losartan-Hctz 100-12.5 Mg Tab) 1 Each Tablet, 1 TAB PO DAILY, #30 Ref 5 (Reported) Entered as Reported by: SWAPNIL CASTRO on 06/22/15900 Last Action: Discontinued on 03/29/20 1247 by PERLA RAY Oxycodone/Apap 7.5-325 (Percocet 7.5-325 Mg Tablet ) 1 Each Tablet, 1 TAB PO Q4HRS PRN for PAIN, Ref 0 (Reported) Entered as Reported by: Darya Jefferson on 07/30/151647 Last Action: Discontinued on 03/28/20427 by ANUPAMA JOVEL Sennosides/Docusate Sodium (Stool Softener Tablet) 1 Each Tablet, 1 EACH PO for CONSTIPATION, (Reported) Entered as Reported by: Darya Jefferson on 07/30/151648 Last Action: Discontinued on 03/28/20427 by ANUPAMA JOVEL Patient Instructions Patient Instructions > 30 min face to heather Justicifation of Admission Dx: Justifications for Admission: Justification of Admission Dx: N/A JUNIOR ALVARENGA MD Mar 31, 2020 12:42
[2020-03-31] MEDS ORDERED: SODI650T PO (12:44)
[2020-03-31] MEDS ORDERED: HYDR12.575 PO (12:47)
--- NOTE | 2020-03-31 13:13 | PDOC ---
DATE OF SERVICE: DOS: DATE: 03/31/20 TIME: 13:10 SUBJECTIVE ROS CKD III Patient had surgery to his finger yesterday. No labs for this morning. Feeling good. He is seen the dietitian already. OBJECTIVE Vital Signs Vital Signs Date Time Temp Pulse Resp B/P (MAP) Pulse Ox O2 Delivery O2 Flow Rate FiO2 03/31/20 11:00 98.0 89 20 146/88 (107) 96 Room Air 98.0 03/30/20 20:48 10.0 I & 0 Intake and Output 03/31/20 07:00 Intake Total 3980 ml Output Total 5 ml Balance 3975 ml Intake Oral 2980 ml IV Total 1000 ml Estimated Blood Loss 5 ml # Voids 5 PHYSICAL EXAM Physical Exam General Appearance: Awake: Alert Oriented x 3 Neck: No JVD or JVP Chest: CTA Artur Heart: S1 S2 Abdomen - Soft NTND Extremities - No Edema DIAGNOSIS/ASSESSMENT Assessment & Plan Chronic kidney disease stage IIIa. Diabetic hypertensive nephrosclerosis. Follow-up with Dr. Morgan in 3 to 4 weeks. Discussed with patient and at bedside COMMENT/RELEVANT DATA Meds Current Medications Medications (Trade) Dose Ordered Sig/Efe Start Time Stop Time Status Last Admin Dose Admin Acetaminophen/ Hydrocodone Bitart (Lortab 5/325) 1 tab 1X ONCE 03/27/20 23:15 03/27/20 23:16 DC 03/27/20 23:04 1 TAB Acetaminophen/ Hydrocodone Bitart (Lortab 7.5/325) 1 tab PRN Q6HRS PRN 03/28/20 12:15 03/31/20 03:34 1 TAB Al Hydroxide/Mg Hydroxide (Mylanta Plus Xs) 30 ml PRN DAILY PRN 03/28/20 10:45 Albuterol Sulfate (Ventolin Neb Soln) 2.5 mg PRN Q4HRS PRN 03/28/20 10:45 Aspirin (Ecotrin) 81 mg DAILY 03/28/20 11:00 03/31/20 09:06 81 MG Calcium Gluconate (Calcium Gluconate) 1,000 mg 1X ONCE 03/28/20 00:30 03/28/20 00:31 DC 03/28/20 00:33 1,000 MG Cefepime HCl (Maxipime) 2 gm Q12HR 03/28/20 15:00 03/31/20 09:30 DC 03/31/20 09:10 2 GM Clonidine HCl (Catapres) 0.1 mg PRN Q6HRS PRN 03/28/20 10:45 03/29/20 14:30 DC Daptomycin 500 mg/ Sodium Chloride 50 ml @ 100 mls/hr Q24H 03/28/20 16:00 03/31/20 09:30 DC 03/30/20 15:59 100 MLS/HR Dexamethasone Sodium Phosphate (Decadron) 4 mg STK-MED ONCE 03/30/20 20:00 03/30/20 20:00 DC Dextrose (Dextrose 50%-Water Syringe) 12.5 gm PRN Q15MIN PRN 03/28/20 07:45 Diphtheria/ Tetanus/Acell Pertussis (ADACEL TDap SYRINGE) 0.5 ml ONCE ONCE 03/28/20 10:30 03/28/20 10:35 DC 03/28/20 11:55 0.5 ML Docusate Sodium (Colace) 100 mg PRN BID PRN 03/28/20 10:45 Enoxaparin Sodium (Lovenox 40mg Syringe) 40 mg Q24H 03/28/20 12:00 03/30/20 12:11 40 MG Fentanyl Citrate (Fentanyl 2ml Vial) 100 mcg STK-MED ONCE 03/30/20 20:43 03/30/20 20:44 DC Guaifenesin (Robitussin) 200 mg PRN Q4HRS PRN 03/28/20 10:45 Hydralazine HCl (Apresoline) 25 mg PRN TID PRN 03/29/20 14:15 Hydrochlorothiazide (Microzide) 12.5 mg DAILY 03/30/20 09:00 03/31/20 09:06 12.5 MG Hydromorphone HCl (Dilaudid) 0.5 mg PRN Q10MIN PRN 03/30/20 17:15 03/31/20 17:14 Insulin Human Lispro (HumaLOG VIAL for OP,RR ONLY) 0-10 units PRN Q1HR PRN 03/30/20 16:45 03/31/20 16:44 Insulin Human Lispro (HumaLOG) 0-7 UNITS TIDWMEALS 03/28/20 08:00 Insulin Human Regular (HumuLIN R VIAL) 10 unit 1X ONCE 03/28/20 00:30 03/28/20 00:31 DC 03/28/20 00:33 10 UNIT Lactobacillus Rhamnosus (Culturelle) 1 cap BID 03/30/20 21:00 03/31/20 09:06 1 CAP Levothyroxine Sodium (Synthroid) 25 mcg DAILY06 03/28/20 10:30 03/31/20 03:33 25 MCG Lidocaine HCl (Lidocaine Pf 2% Vial) 5 ml STK-MED ONCE 03/30/20 17:48 03/30/20 17:49 DC Lidocaine HCl (Xylocaine-Mpf 1% 2ml Vial) 2 ml PRN 1X PRN 03/30/20 17:15 03/31/20 17:14 Linezolid (Zyvox) 600 mg BID 03/31/20 21:00 Lorazepam (Ativan) 0.5 mg PRN Q4HRS PRN 03/28/20 10:45 Losartan Potassium (Cozaar) 100 mg DAILY 03/29/20 15:00 03/31/20 09:07 100 MG Morphine Sulfate (Morphine Sulfate) 1 mg PRN Q10MIN PRN 03/30/20 17:15 03/31/20 17:14 Ondansetron HCl (Zofran) 4 mg STK-MED ONCE 03/30/20 20:14 03/30/20 20:15 DC Phenylephrine HCl (PHENYLEPHRINE in 0.9% NACL PF) 1 mg STK-MED ONCE 03/30/20 20:04 03/30/20 20:04 DC Prochlorperazine Edisylate (Compazine) 5 mg PACU PRN PRN 03/30/20 17:15 03/31/20 17:14 Propofol (Diprivan) 200 mg STK-MED ONCE 03/30/20 17:48 03/30/20 17:49 DC Ringer's Solution 1,000 ml @ 30 mls/hr Q24H 03/30/20 17:04 03/31/20 05:03 DC 03/30/20 18:15 30 MLS/HR Sevoflurane (Ultane) 30 ml STK-MED ONCE 03/30/20 20:00 03/30/20 20:00 DC Sodium Monofluorophosphate (Fleet Adult) 133 ml PRN DAILY PRN 03/28/20 10:45 03/29/20 14:30 DC Sodium Polystyrene Sulfonate (Kayexalate) 30 gm 1X ONCE 03/28/20 10:30 03/28/20 10:35 DC 03/28/20 10:43 30 GM Sodium Bicarbonate (Sodium Bicarbonate) 1,300 mg BID 03/30/20 12:15 03/31/20 09:06 1,300 MG Sodium Bicarbonate (Sodium Bicarb Adult 8.4% Syr) 50 meq Q2H 03/29/20 15:00 03/29/20 17:01 DC 03/29/20 18:51 50 MEQ Sodium Chloride 1,000 ml @ 100 mls/hr Q10H 03/28/20 10:45 03/29/20 12:14 DC 03/29/20 07:18 100 MLS/HR Sodium Chloride (Normal Saline Flush) 3 ml QSHIFT PRN 03/28/20 10:45 Tramadol HCl (Ultram) 50 mg PRN Q6HRS PRN 03/30/20 11:30 03/30/20 12:14 50 MG Vancomycin HCl (Vanco Per Pharmacy) 1 each PRN DAILY PRN 03/28/20 00:15 03/28/20 13:59 DC 03/28/20 05:03 1 EACH Vancomycin HCl (Vancomycin Trough Level) 1 each 1X ONCE 03/29/20 22:30 03/28/20 14:00 DC Vancomycin HCl 1.5 gm/Sodium Chloride 500 ml @ 250 mls/hr Q24H 03/28/20 23:00 03/28/20 13:58 DC Vancomycin HCl 2 gm/Sodium Chloride 500 ml @ 250 mls/hr 1X ONCE 03/28/20 00:30 03/28/20 02:29 DC 03/28/20 00:34 250 MLS/HR Lab Laboratory Tests Test 03/30/20 16:03 03/30/20 18:22 03/31/20 07:11 03/31/20 07:40 Glucose (Fingerstick) 106 mg/dL (70-99) 114 mg/dL (70-99) 157 mg/dL (70-99) Creatine Kinase 123 U/L (39-308) Test 03/31/20 11:39 Glucose (Fingerstick) 132 mg/dL (70-99) Results All relevant outside records, renal labs, imaging studies, telemetry/EKG's were reviewed. Justicifation of Admission Dx: Justifications for Admission: Justification of Admission Dx: N/A JIE PUCKETT MD Mar 31, 2020 13:13
--- NOTE | 2020-03-31 14:08 | NUR ---
Wound/Ostomy Care Wound Type/Assessment: Patient seen per wound care follow up. See wound assessment. Patient has trauma wound to the right index finger that was due to him smashing it with a hammer while at work. Patient had been seen previously in the wound clinic. Patient underwent I&D to the right index finger on 03/28/[address] Woodson, then had a second surgery on 03/30/20 to the right middle finger which developed an abscess. Both Wounds cleansed, assessed, measured, and pictured. Patient anticipated to discharge today. Wounds clean with good healthy tissue. Patient has movement and sensation to both. Treatment Recommendations/Plan: Recommendations for triple antibiotic ointment and cover with gauze and/or kerlix to protect area with extra padding. change daily. Patient instructed to cleanse wound and apply ointment at home daily. Patient does not have any sensitivity to neosporin. Education provided: Patient educated on dressing changes and ointment. Patient is independent. at bedside and both v/u of dressing and care of wound. Patient also educated to maintain blood sugars under 180 to promote optimal wound healing. Offloading surface/device: N/A Recommended Referrals/Tests: N/A Discharge Recommendations for dressings: Dressings applied. No other wounds noted. Patient will follow up with us in the wound clinic as needed. Patient instructed to call clinic or come to ER with any redness, fever, odor, or increased drainage. Bed lowered and call light in reach.
[2020-03-31 15:00] VITALS: BP 150/83
[2020-03-31] MEDS ORDERED: LINEZOLID 600 MG TABLET PO SCH (21:00)
== END 2020-03-31 16:00 | disposition home or self-care (01) | DRG 580 ==
LOC: ER 19:17 → 2 SOUTH 03-28 00:25
PROVIDERS: ADMIT Internal Medicine; ATTEND Internal Medicine
PROC: 0JBJ0ZZ Excision of Right Hand Subcutaneous Tissue and Fascia, Open Approach (ICD-10-PCS; principal; 2020-03-28 18:00)
DX: L03.011 Cellulitis of right finger (principal); L03.113 Cellulitis of right upper limb; N17.9 Acute kidney failure, unspecified; E87.2 Acidosis; E87.5 Hyperkalemia; M65.9 Synovitis and tenosynovitis, unspecified; Z20.828 Contact with and (suspected) exposure to other viral communicable diseases; E11.22 Type 2 diabetes mellitus with diabetic chronic kidney disease; I12.9 Hypertensive chronic kidney disease with stage 1 through stage 4 chronic kidney disease, or unspecified chronic kidney disease; N18.30 Chronic kidney disease, stage 3 unspecified; Y99.0 Civilian activity done for income or pay; Z79.4 Long term (current) use of insulin; Z88.8 Allergy status to other drugs, medicaments and biological substances; Z86.14 Personal history of Methicillin resistant Staphylococcus aureus infection; Z82.49 Family history of ischemic heart disease and other diseases of the circulatory system
CPT/HCPCS: 36415; 73130; 80048; 80053; 82550; 82962; 83605; 85025; 86140; 87040; 87071; 87075; 87426; 90471; 90715; 93005; 96361; 96365; 96375; A7015; J0610; J0692; J0878; J1100; J1650; J1815; J2370; J2405; J2704; J3010; J3370; J3490; J7030; J7040; J7120; U0003; 99285-25; A4461; G0378

== ENCOUNTER → 2020-06-25 | Outpatient (CLI) | payer OTHER ==
[~2020-06-25] MED LIST changes: +ACET325T9 PO; +HYDR12.575 PO; +IOHEXOL 240 MG/ML 50ML VIAL. PO ONE; +LACT1CAP19 PO; +LINE600T12 PO; +LOSA100T14 PO; +SODI650T PO; +TRAM50TA PO
--- NOTE | 2020-06-25 15:51 | KCIC ---
Exam: CT abdomen/pelvis without intravenous contrast Indication: Weight loss, renal disease Comparison: CT abdomen pelvis 06/22/2015 Technique: Helical CT imaging performed of the abdomen and pelvis without the use of intravenous cont rast. Sagittal and coronal reformats were obtained. One or more of the following individualized dose reduction techniques were utilized for this examinat ion: 1. Automated exposure control 2. Adjustment of the mA and/or kV according to patient size 3. Use of iterative reconstruction technique. Findings: Inherently limited evaluation without intravenous contrast. Lower chest: There is a new lobulated nodule or 2 immediately adjacent nodules measuring approximatel y 8 mm in the right middle lobe. Heart is normal in size. Liver: Liver is normal. Gallbladder/Biliary Tree: Increased gallbladder distention, now measuring 12 x 7, previously 11 x 5 c m. Some faint hyperdense material layering along the gallbladder lumen may be tiny stones or sludge. Bile ducts are normal. Pancreas: Normal. Spleen: Normal. Adrenal Glands: Normal. Kidneys/Ureters/Bladder: Kidneys are normal in size. No nephrolithiasis or hydronephrosis. Ureters ar e normal. There is mild circumferential bladder wall thickening. Reproductive Organs: Prostate gland is unremarkable. Stomach, small bowel, and colon: The distal esophagus is distended with a small amount contrast. Stom ach is normal. No small bowel obstruction. The appendix and colon are normal. There is a large volume of stool in the cecum. Vasculature: Abdominal aorta and inferior vena cava are normal in caliber. Mild calcified aortoiliac atherosclerosis. Lymph Nodes: Multiple small lymph nodes at the root of mesentery are not significantly changed in siz e. There is new fat stranding or edema at the root of mesentery. Peritoneum and retroperitoneum: No free fluid or free air. Bones: No acute osseous abnormality. Miscellaneous: Subcutaneous fat stranding in the lateral abdominal fajardo is unchanged, may be related to medication injection. Slightly increased body wall edema in the pelvis. Increased size of the lat eral inguinal lymph nodes now measuring approximately 1.1 cm short axis, previously 0.6 cm short axis nonspecific but may be reactive. Impression: 1. New lobulated nodule or 2 immediately adjacent nodules in the right middle lobe measuring approxim ately [address] of the chest is fully evaluate the lungs. 2. Increased gallbladder distention. Probable cholelithiasis. Right upper quadrant ultrasound could b e obtained to further evaluate if indicated. 3. New fat stranding at the root of mesentery is nonspecific and could be seen with mesenteric edema or mesenteric panniculitis. This could also be associated with early or treated lymphoma however ther e is no mesenteric lymphadenopathy. 4. Mildly increased size of bilateral inguinal lymph nodes, nonspecific but may be reactive. 5. The esophagus is patulous and there is a small amount of contrast in the esophagus. Electronically signed by: Trena García MD (06/25/2020 3:49 PM) [id number]
== END ==
LOC: KCIC CT 09:57
PROVIDERS: ATTEND Physician Assistant
DX: N28.9 Disorder of kidney and ureter, unspecified (principal); R63.4 Abnormal weight loss; R91.1 Solitary pulmonary nodule
CPT/HCPCS: 74176; Q9966

== ENCOUNTER 2020-07-04 07:00 | Inpatient (IN) | payer OTHER ==
[~2020-07-04] VITALS: Ht 180.3 cm; Wt 105.0 kg
[~2020-07-04 07:00] MED LIST changes: -IOHEXOL 240 MG/ML 50ML VIAL. PO ONE
[2020-07-04] MEDS ORDERED: IV NORMAL SALINE 1000ML BAG 1,000 ML IV ONE (07:45)
[2020-07-04] MEDS ORDERED: fentaNYL PF VIAL 100 MCG/2 ML VIAL IV ONE (07:45)
--- NOTE | 2020-07-04 08:00 | PHYS DOC ---
Past Medical History Past Medical History: Diabetes-Type II, Hypertension, Renal Disease Past Surgical History: Other Additional Past Surgical Histo: R HAND,B CATARACTS Smoking Status: Never Smoker Alcohol Use: None Drug Use: None General Adult EDM: Chief Complaint: MECHANICAL FALL HPI: HPI: 49-year-old male presents with report of "passing out "upon going into work at approximately 0600 this morning. Reports now with left shoulder pain. Patient does report loss of consciousness. Reports he had had some shortness of breath with exertion. Denies cough. Denies fever or chills. Denies known exposure to COVID-19. Denies use of blood thinners. Patient does report history of diabetes. Reports his blood sugar has been well controlled. Patient does report undergoing a colonoscopy on Sunday. Patient reports he has had some similar dyspnea with exertion a few times over the last 2 weeks. Denies chest pain. Denies other injury. Review of Systems: Review of Systems: Constitutional: Denies fever or chills Eyes: Denies redness or eye pain HENT: Denies nasal congestion or sore throat Respiratory: Denies cough; reports dyspnea with exertion Cardiovascular: Denies chest pain or palpitations GI: Denies abdominal pain, nausea, or vomiting : Denies dysuria or hematuria Musculoskeletal: Denies back pain; reports left shoulder pain Integument: Denies rash or skin lesions Neurologic: Denies headache, focal weakness or sensory changes; reports syncopal episode Complete systems were reviewed and found to be within normal limits, except as documented in this note. Current Medications: Current Medications Medications (Trade) Dose Ordered Sig/Efe Start Time Stop Time Status Last Admin Dose Admin Fentanyl Citrate (Fentanyl 2ml Vial) 50 mcg 1X ONCE 07/04/20 07:45 07/04/20 07:46 DC Sodium Chloride 1,000 ml @ 1,000 mls/hr 1X ONCE 07/04/20 07:45 07/04/20 08:44 Allergies: Allergies: Allergies Coded Allergies Type Severity Reaction Last Updated Verified GINETTE Inhibitors Allergy Intermediate COUGH 03/31/20 Yes I S O L A T I O N *CONTACT* Allergy Unknown 03/30/20 Yes Physical Exam: PE: Constitutional: Well developed, well nourished, uncomfortable, non-toxic appearance HENT: Normocephalic, atraumatic Eyes: PERRL, EOMI, conjunctiva normal, no discharge Neck: Normal range of motion, no tenderness, supple Lungs & Thorax: No respiratory distress, equal chest rise and fall Abdomen: Soft, no tenderness, no guarding/rebound tenderness/distention Skin: Warm, dry, no erythema, no rash Back: No midline tenderness, no CVA tenderness Extremities: Left shoulder deformity noted, left glenohumeral tenderness, ROM limited to left shoulder, left radial pulse +2, no edema Neurologic: Alert and oriented X 3, normal motor function, normal sensory fun ction, no focal deficits noted Psychologic: Affect normal, judgment normal Current Patient Data: Vital Signs: Vital Signs Date Time Temp Pulse Resp B/P (MAP) Pulse Ox O2 Delivery O2 Flow Rate FiO2 07/04/20 07:31 98.2 101 20 175/86 (115) 100 Room Air 98.2 EKG: EKG: @0742 NSR at 99bpm, NO ST elevation, low voltage QRS, QRS 78ms, QT/QTc 346/444ms Radiology/Procedures: Radiology/Procedures: PROCEDURE: SHOULDER 2+V LEFT XR SHOULDER_LEFT 2+ VIEWS DATE: 07/04/2020 7:47 AM INDICATION: shoulder pain/deformity s/p syncopal episode COMPARISON: None. FINDINGS: Bones: There is no evidence of acute fracture or dislocation. Joints: The joint spaces are normal. The acromiohumeral distance is not narrowed. Miscellaneous: No abnormal soft tissue calcifications in the shoulder. IMPRESSION: No evidence of acute fracture or malalignment. Electronically signed by: Kalpesh Keating MD (07/04/2020 8:03 AM) [id number] PROCEDURE: CHEST AP ONLY XR CHEST 1V INDICATION: syncope COMPARISON STUDY: None. FINDINGS: Rotation to the right Lungs: Normal lung volume. No pulmonary mass or consolidation. The tracheobronchial tree and hilar structures are normal. Pleura: No pleural effusion or pneumothorax. Heart and Mediastinum: The cardiomediastinal silhouette is normal. The great vessels of the thorax are normal. Bones and Soft Tissues: The bones and soft tissues are within normal limits. IMPRESSION: No acute cardiopulmonary process. Electronically signed by: Kalpesh Keating MD (07/04/2020 8:04 AM) [id number] PROCEDURE: CT HEAD WO CONTRAST CT HEAD/BRAIN WO Date: 07/04/2020 11:13 AM Clinical Indication: syncope Comparison: None. Technique: 5 mm axial tomographic images were obtained of the head without contrast. These were viewed on brain and bone windows. One or more of the following dose reduction techniques were utilized: Automated exposure control (AEC), Adjustment of mA and/or kV according to patient size, Use of iterative reconstruction technique such as ASiR, CT scan done according to ALARA and image gently/image wisely Findings: The brain parenchyma is normal in attenuation. No intra- or extra-axial mass or fluid collection. No acute hemorrhage. The ventricles are normal in size, shape, and morphology. The saunders-white matter junction is normal. The subarachnoid cisterns are patent. The visualized paranasal sinuses are normal. The visualized portions of the orbits and globes are normal. The mastoid air cells are clear. The sales marketing manager topogram shows no lytic lesion or fracture. Impression: No acute intracranial process. Electronically signed by: Kalpesh Keating MD (07/04/2020 11:41 AM) [id number] Course & Med Decision Making: Course & Med Decision Making Pertinent Labs and Imaging studies reviewed. (See chart for details) Patient presents with syncopal episode with report of dyspnea with exertion which has been intermittent for the past 2 weeks. Denies Covid exposure. Patient neurologically intact. Patient reports some left shoulder strain with concern for possible deformity. Limb neurovascularly intact. Left shoulder x- ray without acute fracture or dislocation. Chest x-ray clear. EKG stable. Labs obtained and posted to chart. D-dimer elevated. Troponin also slightly elevated. Patient's renal insufficiency appears stable per [employer] review. Cannot obtain CT angio given renal dysfunction and difficulty with placement of IV. Venous Dopplers and VQ scan therefore ordered. CT head without acute process. Empiric Lovenox provided. Aspirin given. Pain addressed. Patient requiring admission for further evaluation and treatment. Discussed with Dr. Ocampo (hospitalist) who is in agreement with admission. Discussed findings and plan with patient, who acknowledges understanding and agreement. Roberto Carlos Disclaimer: Roberto Carlos Disclaimer: This electronic medical record was generated, in whole or in part, using a voice recognition dictation system. Departure Departure Impression: Primary Impression: Syncope Qualified Codes: R55 - Syncope and collapse Additional Impressions: Left shoulder strain Qualified Codes: S46.912A - Strain of unspecified muscle, fascia and tendon at shoulder and upper arm level, left arm, initial encounter Elevated troponin Elevated d-dimer Suspected 2019 novel coronavirus infection Disposition: 09 ADMITTED INPT THIS HOSP Admitting Physician: ALEX (Terrence) Condition: GUARDED Referrals: KASSY QUIJANO MD (PCP) Critical Care Time Critical care time was 30 minutes which includes time at bedside, spent in discussion of patient's care with specialists and/or family members, with interpretation of laboratory and/or radiological studies and is exclusive of procedures. ANNIE LYNN DO Jul 04, 2020 08:00
--- NOTE | 2020-07-04 08:05 | RAD ---
XR SHOULDER_LEFT 2+ VIEWS DATE: 07/04/2020 7:47 AM INDICATION: shoulder pain/deformity s/p syncopal episode COMPARISON: None. FINDINGS: Bones: There is no evidence of acute fracture or dislocation. Joints: The joint spaces are normal. The acromiohumeral distance is not narrowed. Miscellaneous: No abnormal soft tissue calcifications in the shoulder. IMPRESSION: No evidence of acute fracture or malalignment. Electronically signed by: Kalpesh Keating MD (07/04/2020 8:03 AM) [id number]
--- NOTE | 2020-07-04 08:06 | RAD ---
XR CHEST 1V INDICATION: syncope COMPARISON STUDY: None. FINDINGS: Rotation to the right Lungs: Normal lung volume. No pulmonary mass or consolidation. The tracheobronchial tree and hilar st ructures are normal. Pleura: No pleural effusion or pneumothorax. Heart and Mediastinum: The cardiomediastinal silhouette is normal. The great vessels of the thorax ar e normal. Bones and Soft Tissues: The bones and soft tissues are within normal limits. IMPRESSION: No acute cardiopulmonary process. Electronically signed by: Kalpesh Keating MD (07/04/2020 8:04 AM) [id number]
[2020-07-04 10:20] LABS: BASO # 0.1 x10^3/uL (0.0-0.2); BASO % 1 % (0-3); EOS # 0.2 x10^3/uL (0.0-0.7); EOS % 2 % (0-3); HEMATOCRIT 39.5 % (39.0-53.0); HEMOGLOBIN 12.6 g/dL (13.0-17.5); LYMPH # 1.2 x10^3/uL (1.0-4.8); LYMPH % 12 % (24-48); MEAN CORPUSCULAR HEMOGLOBIN 28 pg (25-35); MEAN CORPUSCULAR HGB CONC 32 g/dL (31-37); MEAN CORPUSCULAR VOLUME 87 fL (79-100); MONO # 0.6 x10^3/uL (0.0-1.1); MONO % 6 % (0-9); NEUT # 7.9 x10^3/uL (1.8-7.7); NEUT % 79 % (31-73); PLATELET COUNT 275 x10^3/uL (140-400); RED BLOOD COUNT 4.57 x10^6/uL (4.30-5.70); RED CELL DISTRIBUTION WIDTH 18.6 % (11.5-14.5)
[2020-07-04 10:26] LABS: CALCIUM 8.7 mg/dL (8.5-10.1); CREATININE 1.8 mg/dL (0.7-1.3); GFR 40.1; POTASSIUM 4.7 mmol/L (3.5-5.1)
[2020-07-04 10:31] LABS: ALBUMIN 2.5 g/dL (3.4-5.0); ALBUMIN/GLOBULIN RATIO 0.5 (1.0-1.7); MAGNESIUM 1.7 mg/dL (1.8-2.4); TOTAL BILIRUBIN 0.4 mg/dL (0.2-1.0); TOTAL PROTEIN 7.1 g/dL (6.4-8.2)
[2020-07-04] MEDS ORDERED: ASPIRIN ENTERIC COATED 325 MG TABLET.DR. PO ONE (11:15)
--- NOTE | 2020-07-04 11:29 | PDOC1 ---
History and Physical Date of Admission Date of Admission DATE: 07/04/20 TIME: 11:27 Identification/Chief Complaint Chief Complaint 49-year-old male presents with report of "passing out "upon going into work at approximately 0600 this morning. Reports now with left shoulder pain. Patient does report loss of consciousness. Reports he had had some shortness of breath with exertion. Denies cough. Denies fever or chills. Denies known exposure to COVID-19. Denies use of blood thinners. Patient does report history of diabetes. Reports his blood sugar has been well controlled. Patient does report undergoing a colonoscopy on Sunday. Patient reports he has had some similar dyspnea with exertion a few times over the last 2 weeks. Denies chest pain, had a colonoscopy with DR RODRIGUEZ SUNDAY, UNEVENTFUL Past Medical History Past Medical History Past Medical History Past Medical History Past Medical History: Diabetes-Type II, Hypertension, Renal Disease Past Surgical History: Other Additional Past Surgical Histo: R HAND,B CATARACTS Smoking Status: Never Smoker Alcohol Use: None Drug Use: None Operative Note Operative Note Date of surgery: 03/30/2020 Preoperative diagnosis: Right long finger infection, possible flexor tenosyn ovitis Postoperative diagnosis: Right long finger infection with skin subcutaneous and fascia involvement, not involving flexor tendon sheath Operative procedure: Irrigation debridement right long finger involving skin subcutaneous tissue and fascia Surgeon: Chintan Anesthesia: General Estimated blood loss: 5 cc Rheumatologic: No pertinent hx Infectious disease: No pertinent hx Renal/: No pertinent hx, Chronic renal insuff, Chronic renal failure Family History Family History: Hypertension Social History Smoke: No ALCOHOL: none Drugs: None Current Problem List Problem List Problems Medical Problems: (1) Left shoulder strain Status: Acute (2) Syncope Status: Acute Current Medications Current Medications Current Medications Sodium Chloride 1,000 ml @ 1,000 mls/hr 1X ONCE IV Last administered on 07/04/20at 08:19; Start 07/04/20 at 07:45; Stop 07/04/20 at 08:44; Status DC Fentanyl Citrate (Fentanyl 2ml Vial) 50 mcg 1X ONCE IV Last administered on 07/04/20at 08:20; Start 07/04/20 at 07:45; Stop 07/04/20 at 07:46; Status DC Enoxaparin Sodium (Lovenox 100mg Syringe) 90 mg 1X ONCE SQ ; Start 07/04/20 at 11:15; Stop 07/04/20 at 11:16; Status DC Aspirin (Ecotrin) 325 mg 1X ONCE PO ; Start 07/04/20 at 11:15; Stop 07/04/20 at 11:16; Status DC Active Scripts Active Hydrochlorothiazide Capsule (Hydrochlorothiazide) 12.5 Mg Capsule 12.5 Mg PO DAILY Sodium Bicarbonate 650 Mg Tablet 1,300 Mg PO BID Tylenol (Acetaminophen) 325 Mg Tablet 2 Tab PO QID PRN Culturelle (Lactobacillus Rhamnosus Gg) 1 Each Cap.sprink 1 Cap PO BID Zyvox (Linezolid) 600 Mg Tablet 600 Mg PO BID Tramadol Hcl 50 Mg Tablet 50 Mg PO PRN Q6HRS PRN Reported Losartan Potassium 100 Mg Tablet 100 Mg PO DAILY Aspir 81 (Aspirin) 81 Mg Tablet.dr 1 Tab PO DAILY Jardiance (Empagliflozin) 10 Mg Tablet 10 Mg PO Synthroid (Levothyroxine Sodium) 25 Mcg Tablet 1 Tab PO DAILY Allergies Allergies: Coded Allergies: GINETTE Inhibitors (Verified Allergy, Intermediate, COUGH, 03/31/20) cough I S O L A T I O N *CONTACT* (Verified Allergy, Unknown, 03/30/20) mrsa + ROS Review of System Constitutional: Denies fever or chills Eyes: Denies redness or eye pain HENT: Denies nasal congestion or sore throat Respiratory: Denies cough; reports dyspnea with exertion Cardiovascular: Denies chest pain or palpitations GI: Denies abdominal pain, nausea, or vomiting : Denies dysuria or hematuria Musculoskeletal: Denies back pain; reports left shoulder pain Integument: Denies rash or skin lesions Neurologic: Denies headache, focal weakness or sensory changes; reports syncopal episode FOR 5 MINUTES 14 PT systems were reviewed and found to be within normal limits, . General: No: Chills, Night Sweats, Fatigue, Malaise, Appetite, Other PSYCHOLOGICAL ROS: YES: Depression; No: Anxiety, Behavioral Disorder, Concentration difficultie, Decreased libido, Disorientation, Hallucinations, Hostility, Irritablity, Memory difficulties, Mood Swings, Obsessive thoughts, Physical abuse, Sexual abuse, Sleep disturbances, Suicidal ideation, Other Eyes: Yes Decreased vision HEENT: No: Heacaches, Visual Changes, Hearing change, Nasal congestion, Nasal discharge, Oral lesions, Sinus pain, Sore Throat, Epistaxis, Sneezing, Snoring, Tinnitus, Vertigo, Vocal changes, Other Hematological and Lymphatic: No: Bleeding Problems, Blood Clots, Blood Tr ansfusions, Brusing, Night Sweats, Pallor, Swollen Lymph Nodes, Other Gastrointestinal: No Nausea, No Vomiting, No Abdominal Pain, No Diarrhea, No Constipation, No Melena, No Hematochezia, No Other Genitourinary: No Dysuria, No Frequency, No Incontinence, No Hematuria, No Retention, No Discharge, No Urgency, No Pain, No Flank Pain, No Other, No , No , No , No , No , No , No Musculoskeletal: No Gait Disturbance, No Joint Pain, No Joint Stiffness, No Joint Swelling, No Muscle Pain, No Muscular Weakness, No Pain In:, No Swelling In:, No Other Neurological: No Behavorial Changes, No Bowel/Bladder ControlChng, No Confusion, No Dizziness, No Gait Disturbance, No Headaches, No Impaired Coord/balance, No Memory Loss, No Numbness/Tingling, No Seizures, No Speech Problems, No Tremors, No Visual Changes, No Weakness, No Other Skin: No Dry Skin, No Eczema, No Hair Changes, No Lumps, No Mole Changes, No Mottling, No Nail Changes, No Pruritus, No Rash, No Skin Lesion Changes, No Other, No Acne Physical Exam Physical Exam Constitutional: Well developed, well nourished, uncomfortable, non-toxic appearance HENT: Normocephalic, atraumatic Eyes: PERRL, EOMI, conjunctiva normal, no discharge Neck: Normal range of motion, no tenderness, supple Lungs & Thorax: No respiratory distress, equal chest rise and fall Abdomen: Soft, no tenderness, no guarding/rebound tenderness/distention Skin: Warm, dry, no erythema, no rash Back: No midline tenderness, no CVA tenderness Extremities: Left shoulder deformity noted, left glenohumeral tenderness, ROM limited to left shoulder, left radial pulse +2, no edema Neurologic: Alert and oriented X 3, normal motor function, normal sensory function, no focal deficits noted Psychologic: Affect normal, judgment normal General: Alert, Oriented X3, Cooperative, No acute distress HEENT: EOMI, Mucous membr. moist/pink Lungs: Clear to auscultation, Normal air movement Heart: S1S2, RRR, no thrills Breasts: Not examined Abdomen: Normal bowel sounds, Soft Rectal Exam: not examined PELVIC: Examination not indicated Extremities: No clubbing, No cyanosis Skin: No rashes Neuro: Normal speech, Cranial nerves 3-12 NL Psych/Mental Status: Mental status NL, Mood NL Vitals Vitals Vital Signs Date Time Temp Pulse Resp B/P (MAP) Pulse Ox O2 Delivery O2 Flow Rate FiO2 07/04/20 08:20 18 Room Air 07/04/20 07:31 98.2 101 175/86 (115) 100 98.2 Labs Labs Laboratory Tests Test 07/04/20 08:29 07/04/20 09:50 Glucose (Fingerstick) 121 mg/dL (70-99) White Blood Count 10.0 x10^3/uL (4.0-11.0) Red Blood Count 4.57 x10^6/uL (4.30-5.70) Hemoglobin 12.6 g/dL (13.0-17.5) Hematocrit 39.5 % (39.0-53.0) Mean Corpuscular Volume 87 fL (79-100) Mean Corpuscular Hemoglobin 28 pg (25-35) Mean Corpuscular Hemoglobin Concent 32 g/dL (31-37) Red Cell Distribution Width 18.6 % (11.5-14.5) Platelet Count 275 x10^3/uL (140-400) Neutrophils (%) (Auto) 79 % (31-73) Lymphocytes (%) (Auto) 12 % (24-48) Monocytes (%) (Auto) 6 % (0-9) Eosinophils (%) (Auto) 2 % (0-3) Basophils (%) (Auto) 1 % (0-3) Neutrophils # (Auto) 7.9 x10^3/uL (1.8-7.7) Lymphocytes # (Auto) 1.2 x10^3/uL (1.0-4.8) Monocytes # (Auto) 0.6 x10^3/uL (0.0-1.1) Eosinophils # (Auto) 0.2 x10^3/uL (0.0-0.7) Basophils # (Auto) 0.1 x10^3/uL (0.0-0.2) D-Dimer (July) 1.40 ug/mlFEU (0.00-0.50) Sodium Level 143 mmol/L (136-145) Potassium Level 4.7 mmol/L (3.5-5.1) Chloride Level 110 mmol/L (98-107) Carbon Dioxide Level 27 mmol/L (21-32) Anion Gap 6 (6-14) Blood Urea Nitrogen 32 mg/dL (8-26) Creatinine 1.8 mg/dL (0.7-1.3) Estimated GFR (Cockcroft-Gault) 40.1 BUN/Creatinine Ratio 18 (6-20) Glucose Level 110 mg/dL (70-99) Lactic Acid Level 1.2 mmol/L (0.4-2.0) Calcium Level 8.7 mg/dL (8.5-10.1) Magnesium Level 1.7 mg/dL (1.8-2.4) Total Bilirubin 0.4 mg/dL (0.2-1.0) Aspartate Amino Transf (AST/SGOT) 44 U/L (15-37) Alanine Aminotransferase (ALT/SGPT) 31 U/L (16-63) Alkaline Phosphatase 63 U/L (46-116) Creatine Kinase 444 U/L (39-308) Creatine Kinase MB (Mass) 5.0 ng/mL (0.0-3.6) Creatine Kinase MB Relative Index 1.1 % (0-4) Troponin I Quantitative 0.070 ng/mL (0.000-0.055) Total Protein 7.1 g/dL (6.4-8.2) Albumin 2.5 g/dL (3.4-5.0) Albumin/Globulin Ratio 0.5 (1.0-1.7) Laboratory Tests Test 07/04/20 08:29 07/04/20 09:50 Glucose (Fingerstick) 121 mg/dL (70-99) White Blood Count 10.0 x10^3/uL (4.0-11.0) Red Blood Count 4.57 x10^6/uL (4.30-5.70) Hemoglobin 12.6 g/dL (13.0-17.5) Hematocrit 39.5 % (39.0-53.0) Mean Corpuscular Volume 87 fL (79-100) Mean Corpuscular Hemoglobin 28 pg (25-35) Mean Corpuscular Hemoglobin Concent 32 g/dL (31-37) Red Cell Distribution Width 18.6 % (11.5-14.5) Platelet Count 275 x10^3/uL (140-400) Neutrophils (%) (Auto) 79 % (31-73) Lymphocytes (%) (Auto) 12 % (24-48) Monocytes (%) (Auto) 6 % (0-9) Eosinophils (%) (Auto) 2 % (0-3) Basophils (%) (Auto) 1 % (0-3) Neutrophils # (Auto) 7.9 x10^3/uL (1.8-7.7) Lymphocytes # (Auto) 1.2 x10^3/uL (1.0-4.8) Monocytes # (Auto) 0.6 x10^3/uL (0.0-1.1) Eosinophils # (Auto) 0.2 x10^3/uL (0.0-0.7) Basophils # (Auto) 0.1 x10^3/uL (0.0-0.2) D-Dimer (July) 1.40 ug/mlFEU (0.00-0.50) Sodium Level 143 mmol/L (136-145) Potassium Level 4.7 mmol/L (3.5-5.1) Chloride Level 110 mmol/L (98-107) Carbon Dioxide Level 27 mmol/L (21-32) Anion Gap 6 (6-14) Blood Urea Nitrogen 32 mg/dL (8-26) Creatinine 1.8 mg/dL (0.7-1.3) Estimated GFR (Cockcroft-Gault) 40.1 BUN/Creatinine Ratio 18 (6-20) Glucose Level 110 mg/dL (70-99) Lactic Acid Level 1.2 mmol/L (0.4-2.0) Calcium Level 8.7 mg/dL (8.5-10.1) Magnesium Level 1.7 mg/dL (1.8-2.4) Total Bilirubin 0.4 mg/dL (0.2-1.0) Aspartate Amino Transf (AST/SGOT) 44 U/L (15-37) Alanine Aminotransferase (ALT/SGPT) 31 U/L (16-63) Alkaline Phosphatase 63 U/L (46-116) Creatine Kinase 444 U/L (39-308) Creatine Kinase MB (Mass) 5.0 ng/mL (0.0-3.6) Creatine Kinase MB Relative Index 1.1 % (0-4) Troponin I Quantitative 0.070 ng/mL (0.000-0.055) Total Protein 7.1 g/dL (6.4-8.2) Albumin 2.5 g/dL (3.4-5.0) Albumin/Globulin Ratio 0.5 (1.0-1.7) Images Images XR SHOULDER_LEFT 2+ VIEWS DATE: 07/04/2020 7:47 AM INDICATION: shoulder pain/deformity s/p syncopal episode COMPARISON: None. FINDINGS: Bones: There is no evidence of acute fracture or dislocation. Joints: The joint spaces are normal. The acromiohumeral distance is not narrowed. Miscellaneous: No abnormal soft tissue calcifications in the shoulder. IMPRESSION: No evidence of acute fracture or malalignment. Electronically signed by: Vishal Simons MD (07/04/2020 8:03 AM) [id number] DICTATED and SIGNED BY: VISHAL SIMONS MD DATE: 07/04/20 [id number] XR CHEST 1V INDICATION: syncope COMPARISON STUDY: None. FINDINGS: Rotation to the right Lungs: Normal lung volume. No pulmonary mass or consolidation. The tracheobronchial tree and hilar structures are normal. Pleura: No pleural effusion or pneumothorax. Heart and Mediastinum: The cardiomediastinal silhouette is normal. The great vessels of the thorax are normal. Bones and Soft Tissues: The bones and soft tissues are within normal limits. IMPRESSION: No acute cardiopulmonary process. Electronically signed by: Vishal Simons MD (07/04/2020 8:04 AM) [id number] DICTATED and SIGNED BY: VISHAL SIMONS MD DATE: 07/04/20 [id number] VTE Prophylaxis Ordered VTE Prophylaxis Devices: Yes VTE Pharmacological Prophylaxi: Yes Assessment/Plan Assessment/Plan IMPRESSION 1, Syncopal event for approx 5 minutes, concerning for neurological event vs arr hythmia vs vasovagal syncope 2. DILLON, CKD hx Diabetic hypertensive nephrosclerosis 3. elevated d dimer 4. elevated troponin i, suspect demand ischemia 5, HX HYPERTENSION 6, DIABETES 7. FALL WITH SHOULDER CONTUSION, MILD RHABDOMYOLYSIS 8. Suspected 2019 novel coronavirus infection, PUI 9. SEVERE protein-caloric malnutrition plan admit CVC BED trend troponin i Neurology consult for syncope with LOC Cardiology consult, exclude arrythmia Nephrology consult V/Q SCAN exclude PE HOLD NEPHROTOXIC MEDS IV FLUID SUPPORT DVT PROPHYLAXIS HOLD LOSARTEN PENDING Nephrology consult V/Q SCAN nara VENOUS DOPPLER LEGS TO EXCLUDE DVT dictated Justifications for Admission Other Justification DON BAKER MD Jul 04, 2020 11:29
[2020-07-04] MEDS ORDERED: ACETAMINOPHEN 325 MG TABLET. PO PRN ×2 (11:30→12:30)
[2020-07-04] MEDS ORDERED: ONDANSETRON PF 4 MG/2 ML VIAL. IV PRN ×2 (11:30→12:30)
[2020-07-04] MEDS ORDERED: DEXTROSE 50% 25 GM / 50ML DISP.SYRIN. IV PRN (11:30)
--- NOTE | 2020-07-04 11:43 | RAD ---
CT HEAD/BRAIN WO Date: 07/04/2020 11:13 AM Clinical Indication: syncope Comparison: None. Technique: 5 mm axial tomographic images were obtained of the head without contrast. These were view ed on brain and bone windows. One or more of the following dose reduction techniques were utilized: A utomated exposure control (AEC), Adjustment of mA and/or kV according to patient size, Use of iterati ve reconstruction technique such as ASiR, CT scan done according to ALARA and image gently/image bledsoe ly Findings: The brain parenchyma is normal in attenuation. No intra- or extra-axial mass or fluid collection. No acute hemorrhage. The ventricles are normal in size, shape, and morphology. The saunders-white matter abbey ction is normal. The subarachnoid cisterns are patent. The visualized paranasal sinuses are normal. The visualized portions of the orbits and globes are no rmal. The mastoid air cells are clear. The channel director topogram shows no lytic lesion or fracture. Impression: No acute intracranial process. Electronically signed by: Kalpesh Keating MD (07/04/2020 11:41 AM) [id number]
[2020-07-04] MEDS ORDERED: MAG HYDROX/ALUMINUM HYD/SIMETH 30 ML ORAL.SUSP PO PRN (12:30)
[2020-07-04] MEDS ORDERED: DOCUSATE SODIUM 100 MG CAPSULE. PO PRN (12:30)
[2020-07-04] MEDS ORDERED: 0.9 % SODIUM CHLORIDE 10 ML DISP.SYRIN. IV PRN (12:30)
[2020-07-04] MEDS ORDERED: LORazepam 0.5 MG TABLET PO PRN (12:30)
[2020-07-04] MEDS ORDERED: SODIUM PHOSPHATES 19/7GM 133 ML ENEMA. PR PRN (12:30)
[2020-07-04] MEDS ORDERED: ALBUTEROL SULFATE 2.5 MG/3 ML NEBU. NEB PRN (12:30)
[2020-07-04] MEDS ORDERED: guaiFENesin ORAL 200 MG/10 ML LIQUID. PO PRN (12:30)
[2020-07-04] MEDS: IV NORMAL SALINE 1000ML BAG 1,000 ML IV SCH ×2 (12:50→20:48)
[2020-07-04] MEDS: fentaNYL PF VIAL 100 MCG/2 ML VIAL IVP PRN (12:56)
--- NOTE | 2020-07-04 13:02 | EKG ---
[facility] [address] [place] [address] Test Date: 2020-07-04 Test Time: 07:42:19 Pat Name: CORIE CHANG Department: Room: Gender: M Resolution Rep: : 1970 Requested By: ANNIE LYNN Order Number: [id number] Reading MD: Measurements Intervals Riggins Rate: 99 P: 47 KS: 142 QRS: 52 QRSD: 78 T: 23 QT: 346 QTc: 444 Interpretive Statements SINUS RHYTHM LEFT ATRIAL ABNORMALITY QRS(T) CONTOUR ABNORMALITY CONSISTENT WITH ANTEROSEPTAL INFARCT AGE UNDETERMINED ABNORMAL ECG RI6.01 No previous ECG available for comparison
[2020-07-04 13:43] LABS: BILIRUBIN,URINE NEGATIVE (NEG); CLARITY,URINE CLEAR; COLOR,URINE YELLOW; NITRITE,URINE NEGATIVE (NEG); PH,URINE 5.5 (<5.0-8.0); PROTEIN,URINE 100 mg/dL (NEG-TRACE); UROBILINOGEN,URINE 0.2 mg/dL (0.2 mg/dL)
--- NOTE | 2020-07-04 13:53 | RAD ---
EXAM: Coronary perfusion scintigraphy. HISTORY: Syncope, dyspnea on exertion. COMPARISON: Today's chest radiograph. FINDINGS: 5.5 mCi Tc-99m MAA was administered intravenously. Scintigraphic images of the lungs were o btained in multiple projections. There are no segmental defects. IMPRESSION: 1. No clear evidence of pulmonary embolism. Electronically signed by: Herman Robertson MD (07/04/2020 1:51 PM) [facility]
[2020-07-04 13:54] LABS: BACTERIA,URINE 0 /HPF (0-FEW); RBC,URINE RARE /HPF (0-2); WBC,URINE 0 /HPF (0-4)
--- NOTE | 2020-07-04 14:08 | HP ---
ADMIT DATE: 07/04/2020 ADMISSION HISTORY AND PHYSICAL CHIEF COMPLAINT: Syncope. HISTORY OF PRESENT ILLNESS: This is a pleasant 49-year-old male who works at [employer]. Apparently, he arrived at work at 6:00 a.m. this morning and experienced a syncopal episode. He remembers falling events prior to the fall, but does not remember much until someone came to his aid about 5 minutes later. He reports some shortness of breath with exertion, but denied cough, fever or chills. He does have a history of diabetes and chronic kidney disease. He had a colonoscopy with Dr. Shannon this Sunday, which was uneventful. Reports his diabetes has been very well controlled. He has had some similar dyspnea for the last 2 weeks when seen in the ER. CT of the head was unremarkable for any acute process. His D-dimer was elevated. CPK was minimally elevated. It was felt the patient would need admission for Neurology consult, Cardiology consult for elevated troponin. V/Q scan is currently pending. PAST MEDICAL HISTORY: Significant for chronic kidney disease, hypertension, cataract surgery. SOCIAL HISTORY: Never a smoker, no alcohol use. FAMILY HISTORY: Positive for hypertension. 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 ACTIVE SCRIPTS: Please see medication reconciliation sheet. REVIEW OF SYSTEMS: The patient denies fever, chills, eye pain, nasal congestion, cough. Does report some dyspnea with exertion. Denies chest pain or palpitations. No abdominal pain, nausea, vomiting, or hematemesis. No dysuria or hematuria. Denies back pain. Has some left shoulder discomfort after his fall. Denies rash or skin lesions. Denies headache, focal weakness, but definitely reported syncopal episode for at least 5 minutes. Denies visual change, vomiting, incontinence, hematuria. Denies impaired coordination or balance. No memory loss, no numbness or tingling. A 14-point review of systems otherwise negative. PHYSICAL EXAMINATION: GENERAL: Well-developed, well-nourished seen in the ER bed 13, nontoxic. HEENT: Throat and pharynx clear. He is atraumatic on examination of the head. Extraocular muscles are intact. Pupils equal and reactive to light. NECK: Supple, without adenopathy. LUNGS: Clear with equal chest rise. ABDOMEN: Soft without tenderness. SKIN: Warm and dry without rash or erythema. BACK: Without CVA tenderness. EXTREMITIES: There is mild left shoulder discomfort. Range of motion is mildly limited. NEUROLOGIC: He is alert and oriented. Moves all extremities otherwise well. His affect is normal. Judgment is normal. He is cooperative, in no acute distress, mucous membranes are moist. LUNGS: Clear. CARDIOVASCULAR: Regular rate and rhythm. Abdomen without tenderness. EXTREMITIES: Without cyanosis. Cranial nerves 2-12 grossly intact. Mental status was normal. Mood was normal. Recent and remote memory are intact. VITAL SIGNS: Blood pressure 175/86, temperature 98.2, pulse 101, glucose 107. LABORATORY DATA: White count 10.0; hemoglobin 12.6; MCV 87; platelets 275,000. Sodium 143, potassium 4.7, chloride 110, CO2 of 27, BUN 32, creatinine 1.8. GFR is 40.1. AST 44, ALT 31. Creatinine kinase is 4.4. Troponin is mildly elevated at 0.070, albumin 2.5. UA is pending. D-dimer is elevated at 1.4. V/Q scan is pending. X-rays of the left shoulder shows no fracture. Chest x-ray: No acute process. CT of the head: No acute process. ASSESSMENT: 1. Syncopal event for approximately 5 minutes concerning for a neurological event versus arrhythmia versus vasovagal syncope. 2. Chronic kidney disease with acute kidney injury and history of diabetic, hypertensive nephrosclerosis. 3. Elevated D-dimer, rule out pulmonary embolism versus deep vein thrombosis. 4. Elevated troponin 1, suspect demand ischemia. 5. Hypertension. 6. Diabetes. 7. Fall with left shoulder contusion and mild rhabdomyolysis. 8. Person under Investigation for COVID-19. 9. Severe protein-caloric malnutrition. PLAN: 1. CVC bed. Trend troponin. 2. Neurology consult due to syncope and loss of consciousness. 3. Cardiology consult to exclude arrhythmia versus myocardial ischemia. 4. Nephrology consult. 5. V/Q scan to exclude PE. 6. Hold nephrotoxic meds. 7. IV fluid support. 8. Subcutaneous Lovenox 90 mg b.i.d., pending V/Q scan. 9. Hold losartan pending Nephrology consult. 10. Venous Doppler of the legs to exclude DVT. Time spent with the patient exam, chart review, the patient care and coordination was 73 minutes, greater than 50% of time was spent with the patient exam, chart review, the patient care, coordination and consultation. Anticipate length of stay is 2-3 days. [facility] bed. DON BAKER MD DR: BENJAMIN/tony JOB#: [id number] / [id number]
[2020-07-04 15:00] VITALS: BP 154/78
--- NOTE | 2020-07-04 16:00 | RAD ---
US BILATERAL LOWEREXTREMITY VENOUS DOPPLER History: Reason: swelling, elevated d-dimer / Spl. Instructions: / History: Comparison: None. Discussion: Multiple longitudinal and transverse high resolution real-time images of the venous system of bilater al lower extremity were obtained with color and Doppler sampling. The common femoral, superficial fem oral, popliteal and proximal calf veins are all patent and demonstrate normal flow and compressibilit y. Normal respiratory phasicity and augmentation is present. Bilateral lower extremity subcutaneous edema. Impression: 1. No evidence of deep vein thrombosis. Electronically signed by: Pastor Kang DO (07/04/2020 3:57 PM) [facility]
--- NOTE | 2020-07-04 16:34 | RAD ---
EXAM: CAROTID DOPPLER SONOGRAM. HISTORY: Syncope, dizziness, lightheadedness. TECHNIQUE: Cuevas scale and color Doppler sonographic evaluation of the neck with spectral waveform jordyn lysis was performed and static images are submitted for review. FINDINGS: RIGHT: The peak systolic velocity within the common carotid artery is 74 cm/sec. The peak systolic ve locity within the internal carotid artery is 81 cm/sec and the end diastolic velocity within the inte rnal carotid artery is 31 cm/sec. The ICA/CCA ratio is 0.8. Grayscale images demonstrate no grayscale stenosis. LEFT: The peak systolic velocity within the common carotid artery is 97 cm/sec. The peak systolic stuart ocity within the internal carotid artery is 85 cm/sec and the end diastolic velocity within the inter nal carotid artery is 40 cm/sec. The ICA/CCA ratio is 0.9. Grayscale images demonstrate no grayscale stenosis. There is antegrade flow within both vertebral arteries. IMPRESSION: 1. No evidence of hemodynamically significant stenosis. PQRS Compliance Statement - Stenosis calculations for CT, MR and conventional angiography are based u ángel measurement of the distal ICA diameter in accordance with the NASCET methodology. Stenosis calcu lations for carotid ultrasound studies are derived from validated velocity criteria which are known t o correlate with the NASCET methodology. Electronically signed by: Herman Robertson MD (07/04/2020 4:32 PM) [facility]
--- NOTE | 2020-07-04 16:50 | CONS ---
DATE OF CONSULTATION: 07/04/2020 REASON FOR CONSULTATION: Elevated troponin. HISTORY OF PRESENT ILLNESS: The patient is a 49-year-old man with past medical history of hypertension, diabetes and dyslipidemia, who presents to the hospital in setting of a syncopal episode. He was walking in his work from one building to another where he began to notice some shortness of breath, which then prompted lightheadedness where he actually fell and hurt his left shoulder. Two bystanders helped him to his feet and he came to the ER for evaluation. In the initial evaluation, he was noted to have an elevated troponin and an elevated D-dimer and ultimately underwent evaluation for a V/Q scan, which was unremarkable and his lower extremity DVT scan also did not reveal any significant pathology. He presently denies any chest pain, but does have chronic intermittent dyspnea. He denies any syncope prior to this episode. No other issues such as palpitations or vision changes. PAST MEDICAL HISTORY: As noted above. SOCIAL HISTORY: The patient works in [employer] and he denies any alcohol, tobacco or illicit drug use. He is . FAMILY HISTORY: Noncontributory. REVIEW OF SYSTEMS: Negative unless otherwise mentioned above in HPI. ALLERGIES: GINETTE INHIBITORS. REVIEW OF SYSTEMS: Negative for 10 out of 14 systems reviewed, unless otherwise mentioned above in HPI. PHYSICAL EXAMINATION: VITAL SIGNS: Afebrile, 95, 26, 154/78, 98% on room air. GENERAL: He is alert and oriented, no acute distress. HEAD AND NECK: Unremarkable. CARDIAC: Regular rate and rhythm without murmurs, rubs or gallops. LUNGS: Clear to auscultation bilaterally. ABDOMEN: Soft, nontender, nondistended. EXTREMITIES: 2+ radial and dorsalis pedis pulses. NEUROLOGIC: No focal deficits. MUSCULOSKELETAL: No obvious trauma. DIAGNOSTIC STUDIES: Hemoglobin at 12.6 with a normal platelet count. Creatinine is mildly elevated at 1.8, which is the patient's baseline with his known chronic kidney disease. Troponin elevated 0.070 and repeat at 0.079 without any significant changes. EKG is unremarkable. V/Q scan is unremarkable. IMPRESSION: 1. Dyspnea on exertion, which is intermittent with recent labile blood pressures and now presenting with a syncopal episode: differential diagnosis is broad. One possibility could have been a low blood pressure event versus arrhythmia, which would be less likely. RECOMMENDATIONS: 1. We will obtain an echocardiogram to ensure stable structural heart function and rule out any occult ischemia given that he has been a diabetic for over 15 years due to his dyspnea. Thank you for this consultation. We will follow along closely. TRUNG RICKS MD DR: RICK/tony JOB#: [id number] / [id number]
[2020-07-04] MEDS: INSULIN LISPRO 300 UNITS/3 ML VIAL. SQ SCH (16:59)
--- NOTE | 2020-07-04 18:11 | NUR ---
PTS ARM IN SLING ACCORDINGLY. PT DENIES ANY WILL OR DSCOMFORT AT THIS TIME. PT ALSO MADE AWARE THAT HE WILL HAVE MPI STRESS TEST TOMORROW AND WILL BE NPO AFTER MIDNIGHT AND NO CAFFEINE AFTER 1700.
[2020-07-04 19:00] VITALS: BP 158/82
--- NOTE | 2020-07-04 20:42 | NUR ---
Pt in bed sleeping. Pt o2 Sa02 dropping in 89. NC on at 2Liters. O2 SAO2 now 95%. Will continue to monitor.
[2020-07-04] MEDS: SODIUM BICARBONATE 650 MG TABLET. PO SCH (20:47)
[2020-07-04] MEDS: LACTOBACILLUS RHAMNOSUS GG 1 CAPSULE. PO SCH (20:47)
--- NOTE | 2020-07-04 21:01 | PDOC2 ---
CONSULT Date of Consult Date of Consult DATE: 07/04/20 TIME: 20:59 Reason for Consult Reason for Consult: syncope Identification/Chief Complaint Chief Complaint syncope History of Present Illness Reason for Visit: This patient is 49-year-old man with past medical history of diabetes, hypertension, hyperlipidemia who presented to hospital with episode of syncope. Patient was not feeling well for the last few days. Patient was having some symptoms of shortness of breath. Patient was having a episode of lightheadedness, he felt lightheaded and had a syncopal event. Patient does not have any previous history of seizure. Patient does not have any spells with jerking in his extremity patient did not have any postictal confusion. Patient did not have any tongue bite or loss of better bowel control Past Medical History Rheumatologic: No pertinent hx Infectious disease: No pertinent hx Renal/: No pertinent hx, Chronic renal insuff, Chronic renal failure Family History Family History: Hypertension Social History No ALCOHOL: none Drugs: None Current Problem List Problem List Problems Medical Problems: (1) Elevated d-dimer Status: Acute (2) Elevated troponin Status: Acute (3) Left shoulder strain Status: Acute (4) Suspected 2019 novel coronavirus infection Status: Acute (5) Syncope Status: Acute Current Medications Current Medications Current Medications Sodium Chloride 1,000 ml @ 1,000 mls/hr 1X ONCE IV Last administered on 07/04/20at 08:19; Start 07/04/20 at 07:45; Stop 07/04/20 at 08:44; Status DC Fentanyl Citrate (Fentanyl 2ml Vial) 50 mcg 1X ONCE IV Last administered on 07/04/20at 08:20; Start 07/04/20 at 07:45; Stop 07/04/20 at 07:46; Status DC Enoxaparin Sodium (Lovenox 100mg Syringe) 90 mg 1X ONCE SQ Last administered on 07/04/20at 12:20; Start 07/04/20 at 11:15; Stop 07/04/20 at 11:16; Status DC Aspirin (Ecotrin) 325 mg 1X ONCE PO Last administered on 07/04/20at 12:20; Start 07/04/20 at 11:15; Stop 07/04/20 at 11:16; Status DC Ondansetron HCl (Zofran) 4 mg PRN Q8HRS PRN IV NAUSEA/VOMITING; Start 07/04/20 at 11:30; Stop 07/05/20 at 11:29 Insulin Human Lispro (HumaLOG) 0-5 UNITS TIDWMEALS SQ ; Start 07/04/20 at 17:00 Dextrose (Dextrose 50%-Water Syringe) 12.5 gm PRN Q15MIN PRN IV SEE COMMENTS; Start 07/04/20 at 11:30 Fentanyl Citrate (Fentanyl 2ml Vial) 50 mcg PRN Q2HR PRN IVP PAIN Last administered on 07/04/20at 12:56; Start 07/04/20 at 11:30 Acetaminophen (Tylenol) 650 mg PRN QID PRN PO PAIN MILD; Start 07/04/20 at 11:30 Aspirin (Ecotrin) 81 mg DAILY PO ; Start 07/05/20 at 09:00 Lactobacillus Rhamnosus (Culturelle) 1 cap BID PO Last administered on 07/04/20at 20:47; Start 07/04/20 at 21:00 Levothyroxine Sodium (Synthroid) 25 mcg DAILY PO ; Start 07/05/20 at 09:00 Sodium Bicarbonate (Sodium Bicarbonate) 1,300 mg BID PO Last administered on 07/04/20at 20:47; Start 07/04/20 at 21:00 Enoxaparin Sodium (Lovenox 80mg Syringe) 90 mg BID SQ Last administered on 07/04/20at 20:47; Start 07/04/20 at 21:00; Stop 07/04/20 at 20:49; Status DC Sodium Chloride (Normal Saline Flush) 3 ml QSHIFT PRN IV AFTER MEDS AND BLOOD DRAWS; Start 07/04/20 at 12:30 Sodium Chloride 1,000 ml @ 100 mls/hr Q10H IV Last administered on 07/04/20at 20:48; Start 07/04/20 at 12:30 Ondansetron HCl (Zofran) 4 mg PRN Q4HRS PRN IV NAUSEA/VOMITING; Start 07/04/20 at 12:30 Acetaminophen (Tylenol) 650 mg PRN Q4HRS PRN PO TEMP OVER 100.4F OR MILD PAIN; Start 07/04/20 at 12:30 Al Hydroxide/Mg Hydroxide (Mylanta Plus Xs) 30 ml PRN DAILY PRN PO HEARTBURN / GAS; Start 07/04/20 at 12:30 Sodium Monofluorophosphate (Fleet Adult) 133 ml PRN DAILY PRN DC CONSTIPATION; Start 07/04/20 at 12:30 Docusate Sodium (Colace) 100 mg PRN BID PRN PO HARD STOOLS; Start 07/04/20 at 12:30 Albuterol Sulfate (Ventolin Neb Soln) 2.5 mg PRN Q4HRS PRN NEB SHORTNESS OF BREATH; Start 07/04/20 at 12:30 Guaifenesin (Robitussin) 200 mg PRN Q4HRS PRN PO COUGH; Start 07/04/20 at 12:30 Lorazepam (Ativan) 0.5 mg PRN Q4HRS PRN PO ANXIETY / AGITATION; Start 07/04/20 at 12:30 Enoxaparin Sodium (Lovenox 100mg Syringe) 90 mg Q12HR SQ ; Start 07/04/20 at 21:00 Active Scripts Active Hydrochlorothiazide Capsule (Hydrochlorothiazide) 12.5 Mg Capsule 12.5 Mg PO DAILY Sodium Bicarbonate 650 Mg Tablet 1,300 Mg PO BID Tylenol (Acetaminophen) 325 Mg Tablet 2 Tab PO QID PRN Zyvox (Linezolid) 600 Mg Tablet 600 Mg PO BID Tramadol Hcl 50 Mg Tablet 50 Mg PO PRN Q6HRS PRN Reported Losartan Potassium 100 Mg Tablet 100 Mg PO DAILY Aspir 81 (Aspirin) 81 Mg Tablet.dr 1 Tab PO DAILY Jardiance (Empagliflozin) 10 Mg Tablet 10 Mg PO Synthroid (Levothyroxine Sodium) 25 Mcg Tablet 1 Tab PO DAILY Allergies Allergies: Coded Allergies: GINETTE Inhibitors (Verified Allergy, Intermediate, COUGH, 03/31/20) cough I S O L A T I O N *CONTACT* (Verified Allergy, Unknown, 03/30/20) mrsa + Physical Exam Physical Exam General no acute distress. HEENT: Normocephalic and atraumatic. NECK: Supple without bruit Respiratory: Clear to auscultation bilaterally Heart: Regular rate and rhythm, S1S2 normal NEUROLOGIC: Mental status Alert oriented. Cranial nerve equally reactive pupils, and intact extraocular movements. No facial asymmetry. Palate elevates and tongue protrudes in midline. Reflexes are 1-2 with flexor plantar responses. Coordination no dysmetria Strength able to move all exts equally. Sensory exam is intact for light touch and pinprick. Gait in bed. A 10-point review of systems was obtained. Other than the history of present illness the remainder of the review of systems is negative. Vitals VITALS Vital Signs Date Time Temp Pulse Resp B/P (MAP) Pulse Ox O2 Delivery O2 Flow Rate FiO2 07/04/20 19:10 Room Air 07/04/20 19:00 98.7 96 22 158/82 (107) 91 98.7 Labs Labs Laboratory Tests Test 07/04/20 08:29 07/04/20 09:50 07/04/20 13:35 07/04/20 14:30 Glucose (Fingerstick) 121 mg/dL (70-99) White Blood Count 10.0 x10^3/uL (4.0-11.0) Red Blood Count 4.57 x10^6/uL (4.30-5.70) Hemoglobin 12.6 g/dL (13.0-17.5) Hematocrit 39.5 % (39.0-53.0) Mean Corpuscular Volume 87 fL (79-100) Mean Corpuscular Hemoglobin 28 pg (25-35) Mean Corpuscular Hemoglobin Concent 32 g/dL (31-37) Red Cell Distribution Width 18.6 % (11.5-14.5) Platelet Count 275 x10^3/uL (140-400) Neutrophils (%) (Auto) 79 % (31-73) Lymphocytes (%) (Auto) 12 % (24-48) Monocytes (%) (Auto) 6 % (0-9) Eosinophils (%) (Auto) 2 % (0-3) Basophils (%) (Auto) 1 % (0-3) Neutrophils # (Auto) 7.9 x10^3/uL (1.8-7.7) Lymphocytes # (Auto) 1.2 x10^3/uL (1.0-4.8) Monocytes # (Auto) 0.6 x10^3/uL (0.0-1.1) Eosinophils # (Auto) 0.2 x10^3/uL (0.0-0.7) Basophils # (Auto) 0.1 x10^3/uL (0.0-0.2) D-Dimer (July) 1.40 ug/mlFEU (0.00-0.50) Sodium Level 143 mmol/L (136-145) Potassium Level 4.7 mmol/L (3.5-5.1) Chloride Level 110 mmol/L (98-107) Carbon Dioxide Level 27 mmol/L (21-32) Anion Gap 6 (6-14) Blood Urea Nitrogen 32 mg/dL (8-26) Creatinine 1.8 mg/dL (0.7-1.3) Estimated GFR (Cockcroft-Gault) 40.1 BUN/Creatinine Ratio 18 (6-20) Glucose Level 110 mg/dL (70-99) Lactic Acid Level 1.2 mmol/L (0.4-2.0) Calcium Level 8.7 mg/dL (8.5-10.1) Magnesium Level 1.7 mg/dL (1.8-2.4) Total Bilirubin 0.4 mg/dL (0.2-1.0) Aspartate Amino Transf (AST/SGOT) 44 U/L (15-37) Alanine Aminotransferase (ALT/SGPT) 31 U/L (16-63) Alkaline Phosphatase 63 U/L (46-116) Creatine Kinase 444 U/L (39-308) Creatine Kinase MB (Mass) 5.0 ng/mL (0.0-3.6) Creatine Kinase MB Relative Index 1.1 % (0-4) Troponin I Quantitative 0.070 ng/mL (0.000-0.055) 0.079 ng/mL (0.000-0.055) Total Protein 7.1 g/dL (6.4-8.2) Albumin 2.5 g/dL (3.4-5.0) Albumin/Globulin Ratio 0.5 (1.0-1.7) Urine Collection Type Void Urine Color Yellow Urine Clarity Clear Urine pH 5.5 (<5.0-8.0) Urine Specific [place] 1.020 (1.000-1.030) Urine Protein 100 mg/dL (NEG-TRACE) Urine Glucose (UA) >=1000 mg/dL (NEG) Urine Ketones (Stick) Negative mg/dL (NEG) Urine Blood Trace (NEG) Urine Nitrite Negative (NEG) Urine Bilirubin Negative (NEG) Urine Urobilinogen Dipstick 0.2 mg/dL (0.2 mg/dL) Urine Leukocyte Esterase Negative (NEG) Urine RBC Rare /HPF (0-2) Urine WBC 0 /HPF (0-4) Urine Squamous Epithelial Cells Occ /LPF Urine Bacteria 0 /HPF (0-FEW) Test 07/04/20 15:57 07/04/20 18:30 07/04/20 19:49 Glucose (Fingerstick) 89 mg/dL (70-99) 155 mg/dL (70-99) Troponin I Quantitative 0.077 ng/mL (0.000-0.055) Laboratory Tests Test 07/04/20 08:29 07/04/20 09:50 07/04/20 13:35 07/04/20 14:30 Glucose (Fingerstick) 121 mg/dL (70-99) White Blood Count 10.0 x10^3/uL (4.0-11.0) Red Blood Count 4.57 x10^6/uL (4.30-5.70) Hemoglobin 12.6 g/dL (13.0-17.5) Hematocrit 39.5 % (39.0-53.0) Mean Corpuscular Volume 87 fL (79-100) Mean Corpuscular Hemoglobin 28 pg (25-35) Mean Corpuscular Hemoglobin Concent 32 g/dL (31-37) Red Cell Distribution Width 18.6 % (11.5-14.5) Platelet Count 275 x10^3/uL (140-400) Neutrophils (%) (Auto) 79 % (31-73) Lymphocytes (%) (Auto) 12 % (24-48) Monocytes (%) (Auto) 6 % (0-9) Eosinophils (%) (Auto) 2 % (0-3) Basophils (%) (Auto) 1 % (0-3) Neutrophils # (Auto) 7.9 x10^3/uL (1.8-7.7) Lymphocytes # (Auto) 1.2 x10^3/uL (1.0-4.8) Monocytes # (Auto) 0.6 x10^3/uL (0.0-1.1) Eosinophils # (Auto) 0.2 x10^3/uL (0.0-0.7) Basophils # (Auto) 0.1 x10^3/uL (0.0-0.2) D-Dimer (July) 1.40 ug/mlFEU (0.00-0.50) Sodium Level 143 mmol/L (136-145) Potassium Level 4.7 mmol/L (3.5-5.1) Chloride Level 110 mmol/L (98-107) Carbon Dioxide Level 27 mmol/L (21-32) Anion Gap 6 (6-14) Blood Urea Nitrogen 32 mg/dL (8-26) Creatinine 1.8 mg/dL (0.7-1.3) Estimated GFR (Cockcroft-Gault) 40.1 BUN/Creatinine Ratio 18 (6-20) Glucose Level 110 mg/dL (70-99) Lactic Acid Level 1.2 mmol/L (0.4-2.0) Calcium Level 8.7 mg/dL (8.5-10.1) Magnesium Level 1.7 mg/dL (1.8-2.4) Total Bilirubin 0.4 mg/dL (0.2-1.0) Aspartate Amino Transf (AST/SGOT) 44 U/L (15-37) Alanine Aminotransferase (ALT/SGPT) 31 U/L (16-63) Alkaline Phosphatase 63 U/L (46-116) Creatine Kinase 444 U/L (39-308) Creatine Kinase MB (Mass) 5.0 ng/mL (0.0-3.6) Creatine Kinase MB Relative Index 1.1 % (0-4) Troponin I Quantitative 0.070 ng/mL (0.000-0.055) 0.079 ng/mL (0.000-0.055) Total Protein 7.1 g/dL (6.4-8.2) Albumin 2.5 g/dL (3.4-5.0) Albumin/Globulin Ratio 0.5 (1.0-1.7) Urine Collection Type Void Urine Color Yellow Urine Clarity Clear Urine pH 5.5 (<5.0-8.0) Urine Specific [place] 1.020 (1.000-1.030) Urine Protein 100 mg/dL (NEG-TRACE) Urine Glucose (UA) >=1000 mg/dL (NEG) Urine Ketones (Stick) Negative mg/dL (NEG) Urine Blood Trace (NEG) Urine Nitrite Negative (NEG) Urine Bilirubin Negative (NEG) Urine Urobilinogen Dipstick 0.2 mg/dL (0.2 mg/dL) Urine Leukocyte Esterase Negative (NEG) Urine RBC Rare /HPF (0-2) Urine WBC 0 /HPF (0-4) Urine Squamous Epithelial Cells Occ /LPF Urine Bacteria 0 /HPF (0-FEW) Test 07/04/20 15:57 07/04/20 18:30 07/04/20 19:49 Glucose (Fingerstick) 89 mg/dL (70-99) 155 mg/dL (70-99) Troponin I Quantitative 0.077 ng/mL (0.000-0.055) Assessment/Plan Assessment/Plan This patient is 49-year-old man with past medical history of diabetes, hypertension, hyperlipidemia who presented to hospital with episode of syncope. Patient was not feeling well for the last few days. Patient was having some symptoms of shortness of breath. Patient was having a episode of lighth eadedness, he felt lightheaded and had a syncopal event. Patient does not have any previous history of seizure. Patient does not have any spells with jerking in his extremity patient did not have any postictal confusion. Patient did not have any tongue bite or loss of better bowel control With episode of syncope, vasovagal syncope, check for any cardiac etiology, arrhythmia, orthostatic hypotension, patient is getting cardiac workup cardiac recommendations appreciated. Spell not concerning for seizure activity. Further workup can be considered as outpatient. Seizure precautions discussed. Hypertension, diabetes, continue treat and monitor. Continue medical management. Plan discussed at length Thank you for allowing me to take part in this patient's care. Please not hesitate to contact me with questions. Transcribed using dictation device. The dictation could contain irregularities inherent in the voice to text conversion software, which may not be detected during the document review process. Please contact our office in case of any confusion or for any clarification, as needed. JANIYA JERONIMO MD Jul 04, 2020 21:01
[2020-07-04 22:36] VITALS: BP 159/89
[2020-07-05 03:00] VITALS: BP 137/81
[2020-07-05 03:58] LABS: BASO # 0.1 x10^3/uL (0.0-0.2); BASO % 1 % (0-3); EOS # 0.3 x10^3/uL (0.0-0.7); EOS % 4 % (0-3); HEMATOCRIT 39.2 % (39.0-53.0); HEMOGLOBIN 12.7 g/dL (13.0-17.5); LYMPH # 2.2 x10^3/uL (1.0-4.8); LYMPH % 29 % (24-48); MEAN CORPUSCULAR HEMOGLOBIN 28 pg (25-35); MEAN CORPUSCULAR HGB CONC 32 g/dL (31-37); MEAN CORPUSCULAR VOLUME 87 fL (79-100); MONO # 0.6 x10^3/uL (0.0-1.1); MONO % 8 % (0-9); NEUT # 4.5 x10^3/uL (1.8-7.7); NEUT % 58 % (31-73); PLATELET COUNT 249 x10^3/uL (140-400); RED BLOOD COUNT 4.49 x10^6/uL (4.30-5.70); RED CELL DISTRIBUTION WIDTH 18.3 % (11.5-14.5); WHITE BLOOD COUNT 7.7 x10^3/uL (4.0-11.0)
[2020-07-05 04:12] LABS: ALBUMIN 2.4 g/dL (3.4-5.0); ALBUMIN/GLOBULIN RATIO 0.5 (1.0-1.7); CALCIUM 8.1 mg/dL (8.5-10.1); CREATININE 1.6 mg/dL (0.7-1.3); POTASSIUM 3.9 mmol/L (3.5-5.1); TOTAL BILIRUBIN 0.4 mg/dL (0.2-1.0); TOTAL PROTEIN 6.8 g/dL (6.4-8.2)
[2020-07-05 07:00] VITALS: BP 144/93
[2020-07-05] MEDS: INSULIN LISPRO 300 UNITS/3 ML VIAL. SQ SCH ×3 (08:00→17:00)
[2020-07-05] MEDS: LEVOTHYROXINE 25 MCG TABLET. PO SCH (10:12)
[2020-07-05] MEDS: SODIUM BICARBONATE 650 MG TABLET. PO SCH ×2 (10:12→21:16)
[2020-07-05] MEDS: ASPIRIN ENTERIC COATED 81 MG TABLET.DR. PO SCH (10:12)
[2020-07-05] MEDS: LACTOBACILLUS RHAMNOSUS GG 1 CAPSULE. PO SCH ×2 (10:12→21:16)
[2020-07-05] MEDS: IV NORMAL SALINE 1000ML BAG 1,000 ML IV SCH ×2 (10:13→21:17)
[2020-07-05] MEDS: fentaNYL PF VIAL 100 MCG/2 ML VIAL IVP PRN (10:16)
[2020-07-05 11:00] VITALS: BP 153/85
--- NOTE | 2020-07-05 11:47 | PDOC ---
[employer] PROGRESS NOTE Date of Service DOS: DATE: 07/05/20 TIME: 11:42 Chief Complaint Chief Complaint A/P: Syncope and collapse Elevated troponin Diabetes mellitus. Hypertension. Chronic kidney disease. History of methicillin-resistant Staphylococcus aureus perineal abscess. History of Present Illness History of Present Illness Mr Stein is a 49-year-old male with past medical history of hypertension, diabetes and hyperlipidemia admitted to the hospital after a syncopal episode at work preceded by shortness of breath. He awoke with left shoulder pain, no loss of bowel or bladder, no tongue biting. He did note shortness of breath and some chest pain. Noted to have an elevated troponin and an elevated D-dimer and ultimately underwent evaluation for a V/Q scan, which was unremarkable and his lower extremity DVT scan also did not reveal any significant DVT. He is not requiring O2. Negative CT head and negative carotid dopplers. No overnight events. Awaiting echocardiogram currently. Some right thigh pain and some left shoulder pain. He is short of breath with minimal chest pain today. COVID 19 testing pending. Vitals/I&O Vitals/I&O: Vital Signs Date Time Temp Pulse Resp B/P (MAP) Pulse Ox O2 Delivery O2 Flow Rate FiO2 07/05/20 10:46 18 Nasal Cannula 2.0 07/05/20 03:00 97.4 84 137/81 (99) 100 97.4 Physical Exam General: Alert, Oriented X3, Cooperative, No acute distress Abdomen: Normal bowel sounds, Soft Extremities: No clubbing, No cyanosis Skin: No rashes Labs Labs: Laboratory Tests Test 07/04/20 13:35 07/04/20 14:30 07/04/20 15:57 07/04/20 18:30 Urine Collection Type Void Urine Color Yellow Urine Clarity Clear Urine pH 5.5 (<5.0-8.0) Urine Specific [place] 1.020 (1.000-1.030) Urine Protein 100 mg/dL (NEG-TRACE) Urine Glucose (UA) >=1000 mg/dL (NEG) Urine Ketones (Stick) Negative mg/dL (NEG) Urine Blood Trace (NEG) Urine Nitrite Negative (NEG) Urine Bilirubin Negative (NEG) Urine Urobilinogen Dipstick 0.2 mg/dL (0.2 mg/dL) Urine Leukocyte Esterase Negative (NEG) Urine RBC Rare /HPF (0-2) Urine WBC 0 /HPF (0-4) Urine Squamous Epithelial Cells Occ /LPF Urine Bacteria 0 /HPF (0-FEW) Troponin I Quantitative 0.079 ng/mL (0.000-0.055) 0.077 ng/mL (0.000-0.055) Glucose (Fingerstick) 89 mg/dL (70-99) Test 07/04/20 19:49 07/05/20 03:30 07/05/20 07:30 Glucose (Fingerstick) 155 mg/dL (70-99) 66 mg/dL (70-99) White Blood Count 7.7 x10^3/uL (4.0-11.0) Red Blood Count 4.49 x10^6/uL (4.30-5.70) Hemoglobin 12.7 g/dL (13.0-17.5) Hematocrit 39.2 % (39.0-53.0) Mean Corpuscular Volume 87 fL (79-100) Mean Corpuscular Hemoglobin 28 pg (25-35) Mean Corpuscular Hemoglobin Concent 32 g/dL (31-37) Red Cell Distribution Width 18.3 % (11.5-14.5) Platelet Count 249 x10^3/uL (140-400) Neutrophils (%) (Auto) 58 % (31-73) Lymphocytes (%) (Auto) 29 % (24-48) Monocytes (%) (Auto) 8 % (0-9) Eosinophils (%) (Auto) 4 % (0-3) Basophils (%) (Auto) 1 % (0-3) Neutrophils # (Auto) 4.5 x10^3/uL (1.8-7.7) Lymphocytes # (Auto) 2.2 x10^3/uL (1.0-4.8) Monocytes # (Auto) 0.6 x10^3/uL (0.0-1.1) Eosinophils # (Auto) 0.3 x10^3/uL (0.0-0.7) Basophils # (Auto) 0.1 x10^3/uL (0.0-0.2) Sodium Level 141 mmol/L (136-145) Potassium Level 3.9 mmol/L (3.5-5.1) Chloride Level 108 mmol/L (98-107) Carbon Dioxide Level 23 mmol/L (21-32) Anion Gap 10 (6-14) Blood Urea Nitrogen 30 mg/dL (8-26) Creatinine 1.6 mg/dL (0.7-1.3) Estimated GFR (Cockcroft-Gault) 46.0 BUN/Creatinine Ratio 19 (6-20) Glucose Level 85 mg/dL (70-99) Calcium Level 8.1 mg/dL (8.5-10.1) Total Bilirubin 0.4 mg/dL (0.2-1.0) Aspartate Amino Transf (AST/SGOT) 35 U/L (15-37) Alanine Aminotransferase (ALT/SGPT) 27 U/L (16-63) Alkaline Phosphatase 60 U/L (46-116) Creatine Kinase 412 U/L (39-308) Total Protein 6.8 g/dL (6.4-8.2) Albumin 2.4 g/dL (3.4-5.0) Albumin/Globulin Ratio 0.5 (1.0-1.7) Assessment and Plan Assessmemt and Plan Problems Medical Problems: (1) Elevated d-dimer Status: Acute (2) Elevated troponin Status: Acute (3) Left shoulder strain Status: Acute (4) Suspected 2019 novel coronavirus infection Status: Acute (5) Syncope Status: Acute Comment Review of Relevant I have reviewed the following items isidro (where applicable) has been applied. Medications: Current Medications Medications (Trade) Dose Ordered Sig/Efe Route PRN Reason Start Time Stop Time Status Last Admin Dose Admin Aspirin (Ecotrin) 81 mg DAILY PO 07/05/20 09:00 07/05/20 10:12 Lactobacillus Rhamnosus (Culturelle) 1 cap BID PO 07/04/20 21:00 07/05/20 10:12 Levothyroxine Sodium (Synthroid) 25 mcg DAILY PO 07/05/20 09:00 07/05/20 10:12 Sodium Bicarbonate (Sodium Bicarbonate) 1,300 mg BID PO 07/04/20 21:00 07/05/20 10:12 Enoxaparin Sodium (Lovenox 80mg Syringe) 90 mg BID SQ 07/04/20 21:00 07/04/20 20:49 DC 07/04/20 20:47 Sodium Chloride 1,000 ml @ 100 mls/hr Q10H IV 07/04/20 12:30 07/05/20 10:13 Enoxaparin Sodium (Lovenox 100mg Syringe) 90 mg Q12HR SQ 07/04/20 21:00 07/05/20 10:13 Justifications for Admission Other Justification syncopem elevated troponin FIDENCIO HAGER MD Jul 05, 2020 11:47
[2020-07-05] MEDS: LIDOCAINE (700MG/PATCH) PATCH. TD SCH (12:36)
--- NOTE | 2020-07-05 12:52 | PDOC2 ---
CONSULT Date of Consult Date of Consult DATE: 07/05/20 TIME: 12:51 Reason for Consult Reason for Consult: DILLON Identification/Chief Complaint Chief Complaint Currently none Source Source: Chart review, Patient History of Present Illness Reason for Visit: Pt is a 49-year-old AA he arrived at work at 6:00 a.m on 07/04 (works at [employer]) and experienced a syncopal episode. . He reports some shortness of breath with exertion, but denied cough, fever or chills. . He had a colonoscopy with Dr. Shannon this Sunday, which was uneventful. Reports his diabetes has been very well controlled. He has had some similar dyspnea for the last 2 weeks when seen in the ER. CT of the head was unremarkable for any acute process. His D-dimer was elevated. CPK was minimally elevated. He denies any N/V/D.No Urinary complaints. He follows with our office and was seen recently by ADMISSIONS COUNSELOR . Currently No sob at rest Past Medical History Rheumatologic: No pertinent hx Infectious disease: No pertinent hx Renal/: No pertinent hx, Chronic renal insuff, Chronic renal failure Family History Family History: Hypertension Social History No ALCOHOL: none Drugs: None Current Problem List Problem List Problems Medical Problems: (1) Elevated d-dimer Status: Acute (2) Elevated troponin Status: Acute (3) Left shoulder strain Status: Acute (4) Suspected 2019 novel coronavirus infection Status: Acute (5) Syncope Status: Acute Current Medications Current Medications Current Medications Sodium Chloride 1,000 ml @ 1,000 mls/hr 1X ONCE IV Last administered on 07/04/20at 08:19; Start 07/04/20 at 07:45; Stop 07/04/20 at 08:44; Status DC Fentanyl Citrate (Fentanyl 2ml Vial) 50 mcg 1X ONCE IV Last administered on 07/04/20at 08:20; Start 07/04/20 at 07:45; Stop 07/04/20 at 07:46; Status DC Enoxaparin Sodium (Lovenox 100mg Syringe) 90 mg 1X ONCE SQ Last administered on 07/04/20at 12:20; Start 07/04/20 at 11:15; Stop 07/04/20 at 11:16; Status DC Aspirin (Ecotrin) 325 mg 1X ONCE PO Last administered on 07/04/20at 12:20; Start 07/04/20 at 11:15; Stop 07/04/20 at 11:16; Status DC Ondansetron HCl (Zofran) 4 mg PRN Q8HRS PRN IV NAUSEA/VOMITING; Start 07/04/20 at 11:30; Stop 07/05/20 at 10:45; Status DC Insulin Human Lispro (HumaLOG) 0-5 UNITS TIDWMEALS SQ ; Start 07/04/20 at 17:00 Dextrose (Dextrose 50%-Water Syringe) 12.5 gm PRN Q15MIN PRN IV SEE COMMENTS Last administered on 07/05/20at 12:37; Start 07/04/20 at 11:30 Fentanyl Citrate (Fentanyl 2ml Vial) 50 mcg PRN Q2HR PRN IVP PAIN Last administered on 07/05/20at 10:16; Start 07/04/20 at 11:30 Acetaminophen (Tylenol) 650 mg PRN QID PRN PO PAIN MILD; Start 07/04/20 at 11:30 Aspirin (Ecotrin) 81 mg DAILY PO Last administered on 07/05/20at 10:12; Start 07/05/20 at 09:00 Lactobacillus Rhamnosus (Culturelle) 1 cap BID PO Last administered on 07/05/20at 10:12; Start 07/04/20 at 21:00 Levothyroxine Sodium (Synthroid) 25 mcg DAILY PO Last administered on 07/05/20at 10:12; Start 07/05/20 at 09:00 Sodium Bicarbonate (Sodium Bicarbonate) 1,300 mg BID PO Last administered on 07/05/20at 10:12; Start 07/04/20 at 21:00 Enoxaparin Sodium (Lovenox 80mg Syringe) 90 mg BID SQ Last administered on 07/04/20at 20:47; Start 07/04/20 at 21:00; Stop 07/04/20 at 20:49; Status DC Sodium Chloride (Normal Saline Flush) 3 ml QSHIFT PRN IV AFTER MEDS AND BLOOD DRAWS; Start 07/04/20 at 12:30 Sodium Chloride 1,000 ml @ 100 mls/hr Q10H IV Last administered on 07/05/20at 10:13; Start 07/04/20 at 12:30 Ondansetron HCl (Zofran) 4 mg PRN Q4HRS PRN IV NAUSEA/VOMITING; Start 07/04/20 at 12:30 Acetaminophen (Tylenol) 650 mg PRN Q4HRS PRN PO TEMP OVER 100.4F OR MILD PAIN; Start 07/04/20 at 12:30 Al Hydroxide/Mg Hydroxide (Mylanta Plus Xs) 30 ml PRN DAILY PRN PO HEARTBURN / GAS; Start 07/04/20 at 12:30 Sodium Monofluorophosphate (Fleet Adult) 133 ml PRN DAILY PRN [place] CONSTIPATION; Start 07/04/20 at 12:30 Docusate Sodium (Colace) 100 mg PRN BID PRN PO HARD STOOLS; Start 07/04/20 at 12:30 Albuterol Sulfate (Ventolin Neb Soln) 2.5 mg PRN Q4HRS PRN NEB SHORTNESS OF BREATH; Start 07/04/20 at 12:30 Guaifenesin (Robitussin) 200 mg PRN Q4HRS PRN PO COUGH; Start 07/04/20 at 12:30 Lorazepam (Ativan) 0.5 mg PRN Q4HRS PRN PO ANXIETY / AGITATION; Start 07/04/20 at 12:30 Enoxaparin Sodium (Lovenox 100mg Syringe) 90 mg Q12HR SQ Last administered on 07/05/20at 10:13; Start 07/04/20 at 21:00 Lidocaine (Lidoderm) 1 patch DAILY TD Last administered on 07/05/20at 12:36; Start 07/05/20 at 12:00 Miscellaneous (Lidoderm Patch Removal) 1 ea QHS MC ; Start 07/05/20 at 21:00 Active Scripts Active Hydrochlorothiazide Capsule (Hydrochlorothiazide) 12.5 Mg Capsule 12.5 Mg PO DAILY Sodium Bicarbonate 650 Mg Tablet 1,300 Mg PO BID Tylenol (Acetaminophen) 325 Mg Tablet 2 Tab PO QID PRN Zyvox (Linezolid) 600 Mg Tablet 600 Mg PO BID Tramadol Hcl 50 Mg Tablet 50 Mg PO PRN Q6HRS PRN Reported Losartan Potassium 100 Mg Tablet 100 Mg PO DAILY Aspir 81 (Aspirin) 81 Mg Tablet.dr 1 Tab PO DAILY Jardiance (Empagliflozin) 10 Mg Tablet 10 Mg PO Synthroid (Levothyroxine Sodium) 25 Mcg Tablet 1 Tab PO DAILY Allergies Allergies: Coded Allergies: GINETTE Inhibitors (Verified Allergy, Intermediate, COUGH, 03/31/20) cough I S O L A T I O N *CONTACT* (Verified Allergy, Unknown, 03/30/20) mrsa + ROS Review of System As per HPI, rest of the ROS is negative Physical Exam Physical Exam General: NAD, sitting up in chair HEENT: OM moist Neck Supple Lungs: Clear to auscultation , Non labored, On RA Heart: RRR, Abdomen: Normal bowel sounds, Soft Extremities: No cyanosis, No edema Neuro: Normal speech, Cranial nerves 3-12 NL Psych/Mental Status: Mental status NL, Mood NL No Griffin, No SP or CVA tenderness Vital Signs Vital Signs Date Time Temp Pulse Resp B/P (MAP) Pulse Ox O2 Delivery O2 Flow Rate FiO2 07/05/20 11:00 96.5 84 20 153/85 (107) 98 Room Air 2.0 96.5 Assessment & Plan DILLON - Pre-renal vs CKD , CK mildly elevated Supportive care, avoid nephrotoxins , maintain hydration CKD 3A - DM, HTN Present since 2015 per [facility] records , Stable renal function since , imaging was unremarkable , DILLON on CKD at last hospitalization Follows with us, recent appt with [facility] Diabetes- Well controlled per pt HTN - stable Syncope and collapse History of methicillin-resistant Staphylococcus aureus perineal abscess. Labs Labs Laboratory Tests Test 07/04/20 08:29 07/04/20 09:50 07/04/20 13:35 07/04/20 14:30 Glucose (Fingerstick) 121 mg/dL (70-99) White Blood Count 10.0 x10^3/uL (4.0-11.0) Red Blood Count 4.57 x10^6/uL (4.30-5.70) Hemoglobin 12.6 g/dL (13.0-17.5) Hematocrit 39.5 % (39.0-53.0) Mean Corpuscular Volume 87 fL (79-100) Mean Corpuscular Hemoglobin 28 pg (25-35) Mean Corpuscular Hemoglobin Concent 32 g/dL (31-37) Red Cell Distribution Width 18.6 % (11.5-14.5) Platelet Count 275 x10^3/uL (140-400) Neutrophils (%) (Auto) 79 % (31-73) Lymphocytes (%) (Auto) 12 % (24-48) Monocytes (%) (Auto) 6 % (0-9) Eosinophils (%) (Auto) 2 % (0-3) Basophils (%) (Auto) 1 % (0-3) Neutrophils # (Auto) 7.9 x10^3/uL (1.8-7.7) Lymphocytes # (Auto) 1.2 x10^3/uL (1.0-4.8) Monocytes # (Auto) 0.6 x10^3/uL (0.0-1.1) Eosinophils # (Auto) 0.2 x10^3/uL (0.0-0.7) Basophils # (Auto) 0.1 x10^3/uL (0.0-0.2) D-Dimer (July) 1.40 ug/mlFEU (0.00-0.50) Sodium Level 143 mmol/L (136-145) Potassium Level 4.7 mmol/L (3.5-5.1) Chloride Level 110 mmol/L (98-107) Carbon Dioxide Level 27 mmol/L (21-32) Anion Gap 6 (6-14) Blood Urea Nitrogen 32 mg/dL (8-26) Creatinine 1.8 mg/dL (0.7-1.3) Estimated GFR (Cockcroft-Gault) 40.1 BUN/Creatinine Ratio 18 (6-20) Glucose Level 110 mg/dL (70-99) Lactic Acid Level 1.2 mmol/L (0.4-2.0) Calcium Level 8.7 mg/dL (8.5-10.1) Magnesium Level 1.7 mg/dL (1.8-2.4) Total Bilirubin 0.4 mg/dL (0.2-1.0) Aspartate Amino Transf (AST/SGOT) 44 U/L (15-37) Alanine Aminotransferase (ALT/SGPT) 31 U/L (16-63) Alkaline Phosphatase 63 U/L (46-116) Creatine Kinase 444 U/L (39-308) Creatine Kinase MB (Mass) 5.0 ng/mL (0.0-3.6) Creatine Kinase MB Relative Index 1.1 % (0-4) Troponin I Quantitative 0.070 ng/mL (0.000-0.055) 0.079 ng/mL (0.000-0.055) Total Protein 7.1 g/dL (6.4-8.2) Albumin 2.5 g/dL (3.4-5.0) Albumin/Globulin Ratio 0.5 (1.0-1.7) Urine Collection Type Void Urine Color Yellow Urine Clarity Clear Urine pH 5.5 (<5.0-8.0) Urine Specific [place] 1.020 (1.000-1.030) Urine Protein 100 mg/dL (NEG-TRACE) Urine Glucose (UA) >=1000 mg/dL (NEG) Urine Ketones (Stick) Negative mg/dL (NEG) Urine Blood Trace (NEG) Urine Nitrite Negative (NEG) Urine Bilirubin Negative (NEG) Urine Urobilinogen Dipstick 0.2 mg/dL (0.2 mg/dL) Urine Leukocyte Esterase Negative (NEG) Urine RBC Rare /HPF (0-2) Urine WBC 0 /HPF (0-4) Urine Squamous Epithelial Cells Occ /LPF Urine Bacteria 0 /HPF (0-FEW) Test 07/04/20 15:57 07/04/20 18:30 07/04/20 19:49 07/05/20 03:30 Glucose (Fingerstick) 89 mg/dL (70-99) 155 mg/dL (70-99) Troponin I Quantitative 0.077 ng/mL (0.000-0.055) White Blood Count 7.7 x10^3/uL (4.0-11.0) Red Blood Count 4.49 x10^6/uL (4.30-5.70) Hemoglobin 12.7 g/dL (13.0-17.5) Hematocrit 39.2 % (39.0-53.0) Mean Corpuscular Volume 87 fL (79-100) Mean Corpuscular Hemoglobin 28 pg (25-35) Mean Corpuscular Hemoglobin Concent 32 g/dL (31-37) Red Cell Distribution Width 18.3 % (11.5-14.5) Platelet Count 249 x10^3/uL (140-400) Neutrophils (%) (Auto) 58 % (31-73) Lymphocytes (%) (Auto) 29 % (24-48) Monocytes (%) (Auto) 8 % (0-9) Eosinophils (%) (Auto) 4 % (0-3) Basophils (%) (Auto) 1 % (0-3) Neutrophils # (Auto) 4.5 x10^3/uL (1.8-7.7) Lymphocytes # (Auto) 2.2 x10^3/uL (1.0-4.8) Monocytes # (Auto) 0.6 x10^3/uL (0.0-1.1) Eosinophils # (Auto) 0.3 x10^3/uL (0.0-0.7) Basophils # (Auto) 0.1 x10^3/uL (0.0-0.2) Sodium Level 141 mmol/L (136-145) Potassium Level 3.9 mmol/L (3.5-5.1) Chloride Level 108 mmol/L (98-107) Carbon Dioxide Level 23 mmol/L (21-32) Anion Gap 10 (6-14) Blood Urea Nitrogen 30 mg/dL (8-26) Creatinine 1.6 mg/dL (0.7-1.3) Estimated GFR (Cockcroft-Gault) 46.0 BUN/Creatinine Ratio 19 (6-20) Glucose Level 85 mg/dL (70-99) Calcium Level 8.1 mg/dL (8.5-10.1) Total Bilirubin 0.4 mg/dL (0.2-1.0) Aspartate Amino Transf (AST/SGOT) 35 U/L (15-37) Alanine Aminotransferase (ALT/SGPT) 27 U/L (16-63) Alkaline Phosphatase 60 U/L (46-116) Creatine Kinase 412 U/L (39-308) Total Protein 6.8 g/dL (6.4-8.2) Albumin 2.4 g/dL (3.4-5.0) Albumin/Globulin Ratio 0.5 (1.0-1.7) Test 07/05/20 07:30 07/05/20 12:28 07/05/20 12:30 07/05/20 12:33 Glucose (Fingerstick) 66 mg/dL (70-99) 49 mg/dL (70-99) 48 mg/dL (70-99) 61 mg/dL (70-99) Laboratory Tests Test 07/04/20 13:35 07/04/20 14:30 07/04/20 15:57 07/04/20 18:30 Urine Collection Type Void Urine Color Yellow Urine Clarity Clear Urine pH 5.5 (<5.0-8.0) Urine Specific [place] 1.020 (1.000-1.030) Urine Protein 100 mg/dL (NEG-TRACE) Urine Glucose (UA) >=1000 mg/dL (NEG) Urine Ketones (Stick) Negative mg/dL (NEG) Urine Blood Trace (NEG) Urine Nitrite Negative (NEG) Urine Bilirubin Negative (NEG) Urine Urobilinogen Dipstick 0.2 mg/dL (0.2 mg/dL) Urine Leukocyte Esterase Negative (NEG) Urine RBC Rare /HPF (0-2) Urine WBC 0 /HPF (0-4) Urine Squamous Epithelial Cells Occ /LPF Urine Bacteria 0 /HPF (0-FEW) Troponin I Quantitative 0.079 ng/mL (0.000-0.055) 0.077 ng/mL (0.000-0.055) Glucose (Fingerstick) 89 mg/dL (70-99) Test 07/04/20 19:49 07/05/20 03:30 07/05/20 07:30 07/05/20 12:28 Glucose (Fingerstick) 155 mg/dL (70-99) 66 mg/dL (70-99) 49 mg/dL (70-99) White Blood Count 7.7 x10^3/uL (4.0-11.0) Red Blood Count 4.49 x10^6/uL (4.30-5.70) Hemoglobin 12.7 g/dL (13.0-17.5) Hematocrit 39.2 % (39.0-53.0) Mean Corpuscular Volume 87 fL (79-100) Mean Corpuscular Hemoglobin 28 pg (25-35) Mean Corpuscular Hemoglobin Concent 32 g/dL (31-37) Red Cell Distribution Width 18.3 % (11.5-14.5) Platelet Count 249 x10^3/uL (140-400) Neutrophils (%) (Auto) 58 % (31-73) Lymphocytes (%) (Auto) 29 % (24-48) Monocytes (%) (Auto) 8 % (0-9) Eosinophils (%) (Auto) 4 % (0-3) Basophils (%) (Auto) 1 % (0-3) Neutrophils # (Auto) 4.5 x10^3/uL (1.8-7.7) Lymphocytes # (Auto) 2.2 x10^3/uL (1.0-4.8) Monocytes # (Auto) 0.6 x10^3/uL (0.0-1.1) Eosinophils # (Auto) 0.3 x10^3/uL (0.0-0.7) Basophils # (Auto) 0.1 x10^3/uL (0.0-0.2) Sodium Level 141 mmol/L (136-145) Potassium Level 3.9 mmol/L (3.5-5.1) Chloride Level 108 mmol/L (98-107) Carbon Dioxide Level 23 mmol/L (21-32) Anion Gap 10 (6-14) Blood Urea Nitrogen 30 mg/dL (8-26) Creatinine 1.6 mg/dL (0.7-1.3) Estimated GFR (Cockcroft-Gault) 46.0 BUN/Creatinine Ratio 19 (6-20) Glucose Level 85 mg/dL (70-99) Calcium Level 8.1 mg/dL (8.5-10.1) Total Bilirubin 0.4 mg/dL (0.2-1.0) Aspartate Amino Transf (AST/SGOT) 35 U/L (15-37) Alanine Aminotransferase (ALT/SGPT) 27 U/L (16-63) Alkaline Phosphatase 60 U/L (46-116) Creatine Kinase 412 U/L (39-308) Total Protein 6.8 g/dL (6.4-8.2) Albumin 2.4 g/dL (3.4-5.0) Albumin/Globulin Ratio 0.5 (1.0-1.7) Test 07/05/20 12:30 07/05/20 12:33 Glucose (Fingerstick) 48 mg/dL (70-99) 61 mg/dL (70-99) Review All relevant outside records, renal labs, imaging studies, telemetry/EKG's were reviewed. MEENA LEONARD MD Jul 05, 2020 12:51
--- NOTE | 2020-07-05 14:06 | PDOC ---
PROGRESS NOTES Date of Service DATE: 07/05/20 TIME: 14:00 Assessment Problems Medical Problems: (1) Elevated d-dimer Status: Acute (2) Elevated troponin Status: Acute (3) Left shoulder strain Status: Acute (4) Suspected 2019 novel coronavirus infection Status: Acute (5) Syncope Status: Acute Syncope, sounds vasovagal, no evidence that he had a stroke or a seizure. Dyspnea, under investigation for Covid, serology negative Diabetes, hypertension, hyperlipidemia, acute kidney injury on chronic kidney disease III Plan No additional neurological studies needed Subjective Complains of dyspnea Objective Vital Signs Date Time Temp Pulse Resp B/P (MAP) Pulse Ox O2 Delivery O2 Flow Rate FiO2 07/05/20 11:00 96.5 84 20 153/85 (107) 98 Room Air 2.0 96.5 Intake and Output 07/05/20 07:00 # Voids 2 PHYSICAL EXAM Alert. Oriented to time, place and person. PERRL. EOMI. CN: no focal findings. Muscle tone: normal. Muscle strength: 5/5 DTR: 1+ Plantar reflex: Flexor Gait: not examined in bed. Sensory exam: no abnormal findings. No cerebellar signs elicited. Review of Relevant I have reviewed the following items isidro (where applicable) has been applied. Labs Laboratory Tests Test 07/04/20 08:29 07/04/20 09:50 07/04/20 12:25 07/04/20 13:35 Glucose (Fingerstick) 121 mg/dL (70-99) White Blood Count 10.0 x10^3/uL (4.0-11.0) Red Blood Count 4.57 x10^6/uL (4.30-5.70) Hemoglobin 12.6 g/dL (13.0-17.5) Hematocrit 39.5 % (39.0-53.0) Mean Corpuscular Volume 87 fL (79-100) Mean Corpuscular Hemoglobin 28 pg (25-35) Mean Corpuscular Hemoglobin Concent 32 g/dL (31-37) Red Cell Distribution Width 18.6 % (11.5-14.5) Platelet Count 275 x10^3/uL (140-400) Neutrophils (%) (Auto) 79 % (31-73) Lymphocytes (%) (Auto) 12 % (24-48) Monocytes (%) (Auto) 6 % (0-9) Eosinophils (%) (Auto) 2 % (0-3) Basophils (%) (Auto) 1 % (0-3) Neutrophils # (Auto) 7.9 x10^3/uL (1.8-7.7) Lymphocytes # (Auto) 1.2 x10^3/uL (1.0-4.8) Monocytes # (Auto) 0.6 x10^3/uL (0.0-1.1) Eosinophils # (Auto) 0.2 x10^3/uL (0.0-0.7) Basophils # (Auto) 0.1 x10^3/uL (0.0-0.2) D-Dimer (July) 1.40 ug/mlFEU (0.00-0.50) Sodium Level 143 mmol/L (136-145) Potassium Level 4.7 mmol/L (3.5-5.1) Chloride Level 110 mmol/L (98-107) Carbon Dioxide Level 27 mmol/L (21-32) Anion Gap 6 (6-14) Blood Urea Nitrogen 32 mg/dL (8-26) Creatinine 1.8 mg/dL (0.7-1.3) Estimated GFR (Cockcroft-Gault) 40.1 BUN/Creatinine Ratio 18 (6-20) Glucose Level 110 mg/dL (70-99) Lactic Acid Level 1.2 mmol/L (0.4-2.0) Calcium Level 8.7 mg/dL (8.5-10.1) Magnesium Level 1.7 mg/dL (1.8-2.4) Total Bilirubin 0.4 mg/dL (0.2-1.0) Aspartate Amino Transf (AST/SGOT) 44 U/L (15-37) Alanine Aminotransferase (ALT/SGPT) 31 U/L (16-63) Alkaline Phosphatase 63 U/L (46-116) Creatine Kinase 444 U/L (39-308) Creatine Kinase MB (Mass) 5.0 ng/mL (0.0-3.6) Creatine Kinase MB Relative Index 1.1 % (0-4) Troponin I Quantitative 0.070 ng/mL (0.000-0.055) Total Protein 7.1 g/dL (6.4-8.2) Albumin 2.5 g/dL (3.4-5.0) Albumin/Globulin Ratio 0.5 (1.0-1.7) Coronavirus (PCR) Not detected (Not Detected) Urine Collection Type Void Urine Color Yellow Urine Clarity Clear Urine pH 5.5 (<5.0-8.0) Urine Specific [facility] 1.020 (1.000-1.030) Urine Protein 100 mg/dL (NEG-TRACE) Urine Glucose (UA) >=1000 mg/dL (NEG) Urine Ketones (Stick) Negative mg/dL (NEG) Urine Blood Trace (NEG) Urine Nitrite Negative (NEG) Urine Bilirubin Negative (NEG) Urine Urobilinogen Dipstick 0.2 mg/dL (0.2 mg/dL) Urine Leukocyte Esterase Negative (NEG) Urine RBC Rare /HPF (0-2) Urine WBC 0 /HPF (0-4) Urine Squamous Epithelial Cells Occ /LPF Urine Bacteria 0 /HPF (0-FEW) Test 07/04/20 14:30 07/04/20 15:57 07/04/20 18:30 07/04/20 19:49 Troponin I Quantitative 0.079 ng/mL (0.000-0.055) 0.077 ng/mL (0.000-0.055) Glucose (Fingerstick) 89 mg/dL (70-99) 155 mg/dL (70-99) Test 07/05/20 03:30 07/05/20 07:30 07/05/20 12:28 07/05/20 12:30 White Blood Count 7.7 x10^3/uL (4.0-11.0) Red Blood Count 4.49 x10^6/uL (4.30-5.70) Hemoglobin 12.7 g/dL (13.0-17.5) Hematocrit 39.2 % (39.0-53.0) Mean Corpuscular Volume 87 fL (79-100) Mean Corpuscular Hemoglobin 28 pg (25-35) Mean Corpuscular Hemoglobin Concent 32 g/dL (31-37) Red Cell Distribution Width 18.3 % (11.5-14.5) Platelet Count 249 x10^3/uL (140-400) Neutrophils (%) (Auto) 58 % (31-73) Lymphocytes (%) (Auto) 29 % (24-48) Monocytes (%) (Auto) 8 % (0-9) Eosinophils (%) (Auto) 4 % (0-3) Basophils (%) (Auto) 1 % (0-3) Neutrophils # (Auto) 4.5 x10^3/uL (1.8-7.7) Lymphocytes # (Auto) 2.2 x10^3/uL (1.0-4.8) Monocytes # (Auto) 0.6 x10^3/uL (0.0-1.1) Eosinophils # (Auto) 0.3 x10^3/uL (0.0-0.7) Basophils # (Auto) 0.1 x10^3/uL (0.0-0.2) Sodium Level 141 mmol/L (136-145) Potassium Level 3.9 mmol/L (3.5-5.1) Chloride Level 108 mmol/L (98-107) Carbon Dioxide Level 23 mmol/L (21-32) Anion Gap 10 (6-14) Blood Urea Nitrogen 30 mg/dL (8-26) Creatinine 1.6 mg/dL (0.7-1.3) Estimated GFR (Cockcroft-Gault) 46.0 BUN/Creatinine Ratio 19 (6-20) Glucose Level 85 mg/dL (70-99) Calcium Level 8.1 mg/dL (8.5-10.1) Total Bilirubin 0.4 mg/dL (0.2-1.0) Aspartate Amino Transf (AST/SGOT) 35 U/L (15-37) Alanine Aminotransferase (ALT/SGPT) 27 U/L (16-63) Alkaline Phosphatase 60 U/L (46-116) Creatine Kinase 412 U/L (39-308) Total Protein 6.8 g/dL (6.4-8.2) Albumin 2.4 g/dL (3.4-5.0) Albumin/Globulin Ratio 0.5 (1.0-1.7) Glucose (Fingerstick) 66 mg/dL (70-99) 49 mg/dL (70-99) 48 mg/dL (70-99) Test 07/05/20 12:33 07/05/20 13:05 Glucose (Fingerstick) 61 mg/dL (70-99) 105 mg/dL (70-99) Laboratory Tests Test 07/04/20 14:30 07/04/20 15:57 07/04/20 18:30 07/04/20 19:49 Troponin I Quantitative 0.079 ng/mL (0.000-0.055) 0.077 ng/mL (0.000-0.055) Glucose (Fingerstick) 89 mg/dL (70-99) 155 mg/dL (70-99) Test 07/05/20 03:30 07/05/20 07:30 07/05/20 12:28 07/05/20 12:30 White Blood Count 7.7 x10^3/uL (4.0-11.0) Red Blood Count 4.49 x10^6/uL (4.30-5.70) Hemoglobin 12.7 g/dL (13.0-17.5) Hematocrit 39.2 % (39.0-53.0) Mean Corpuscular Volume 87 fL (79-100) Mean Corpuscular Hemoglobin 28 pg (25-35) Mean Corpuscular Hemoglobin Concent 32 g/dL (31-37) Red Cell Distribution Width 18.3 % (11.5-14.5) Platelet Count 249 x10^3/uL (140-400) Neutrophils (%) (Auto) 58 % (31-73) Lymphocytes (%) (Auto) 29 % (24-48) Monocytes (%) (Auto) 8 % (0-9) Eosinophils (%) (Auto) 4 % (0-3) Basophils (%) (Auto) 1 % (0-3) Neutrophils # (Auto) 4.5 x10^3/uL (1.8-7.7) Lymphocytes # (Auto) 2.2 x10^3/uL (1.0-4.8) Monocytes # (Auto) 0.6 x10^3/uL (0.0-1.1) Eosinophils # (Auto) 0.3 x10^3/uL (0.0-0.7) Basophils # (Auto) 0.1 x10^3/uL (0.0-0.2) Sodium Level 141 mmol/L (136-145) Potassium Level 3.9 mmol/L (3.5-5.1) Chloride Level 108 mmol/L (98-107) Carbon Dioxide Level 23 mmol/L (21-32) Anion Gap 10 (6-14) Blood Urea Nitrogen 30 mg/dL (8-26) Creatinine 1.6 mg/dL (0.7-1.3) Estimated GFR (Cockcroft-Gault) 46.0 BUN/Creatinine Ratio 19 (6-20) Glucose Level 85 mg/dL (70-99) Calcium Level 8.1 mg/dL (8.5-10.1) Total Bilirubin 0.4 mg/dL (0.2-1.0) Aspartate Amino Transf (AST/SGOT) 35 U/L (15-37) Alanine Aminotransferase (ALT/SGPT) 27 U/L (16-63) Alkaline Phosphatase 60 U/L (46-116) Creatine Kinase 412 U/L (39-308) Total Protein 6.8 g/dL (6.4-8.2) Albumin 2.4 g/dL (3.4-5.0) Albumin/Globulin Ratio 0.5 (1.0-1.7) Glucose (Fingerstick) 66 mg/dL (70-99) 49 mg/dL (70-99) 48 mg/dL (70-99) Test 07/05/20 12:33 07/05/20 13:05 Glucose (Fingerstick) 61 mg/dL (70-99) 105 mg/dL (70-99) Microbiology 07/04/20 Blood Culture - Preliminary, Resulted NO GROWTH AFTER 1 DAY Medications Current Medications Sodium Chloride 1,000 ml @ 1,000 mls/hr 1X ONCE IV Last administered on 07/04/20at 08:19; Start 07/04/20 at 07:45; Stop 07/04/20 at 08:44; Status DC Fentanyl Citrate (Fentanyl 2ml Vial) 50 mcg 1X ONCE IV Last administered on 07/04/20at 08:20; Start 07/04/20 at 07:45; Stop 07/04/20 at 07:46; Status DC Enoxaparin Sodium (Lovenox 100mg Syringe) 90 mg 1X ONCE SQ Last administered on 07/04/20at 12:20; Start 07/04/20 at 11:15; Stop 07/04/20 at 11:16; Status DC Aspirin (Ecotrin) 325 mg 1X ONCE PO Last administered on 07/04/20at 12:20; Start 07/04/20 at 11:15; Stop 07/04/20 at 11:16; Status DC Ondansetron HCl (Zofran) 4 mg PRN Q8HRS PRN IV NAUSEA/VOMITING; Start 07/04/20 at 11:30; Stop 07/05/20 at 10:45; Status DC Insulin Human Lispro (HumaLOG) 0-5 UNITS TIDWMEALS SQ ; Start 07/04/20 at 17:00 Dextrose (Dextrose 50%-Water Syringe) 12.5 gm PRN Q15MIN PRN IV SEE COMMENTS Last administered on 07/05/20at 12:37; Start 07/04/20 at 11:30 Fentanyl Citrate (Fentanyl 2ml Vial) 50 mcg PRN Q2HR PRN IVP PAIN Last administered on 07/05/20at 10:16; Start 07/04/20 at 11:30 Acetaminophen (Tylenol) 650 mg PRN QID PRN PO PAIN MILD; Start 07/04/20 at 11:30 Aspirin (Ecotrin) 81 mg DAILY PO Last administered on 07/05/20at 10:12; Start 07/05/20 at 09:00 Lactobacillus Rhamnosus (Culturelle) 1 cap BID PO Last administered on 07/05/20at 10:12; Start 07/04/20 at 21:00 Levothyroxine Sodium (Synthroid) 25 mcg DAILY PO Last administered on 07/05/20at 10:12; Start 07/05/20 at 09:00 Sodium Bicarbonate (Sodium Bicarbonate) 1,300 mg BID PO Last administered on 07/05/20at 10:12; Start 07/04/20 at 21:00 Enoxaparin Sodium (Lovenox 80mg Syringe) 90 mg BID SQ Last administered on 07/04/20at 20:47; Start 07/04/20 at 21:00; Stop 07/04/20 at 20:49; Status DC Sodium Chloride (Normal Saline Flush) 3 ml QSHIFT PRN IV AFTER MEDS AND BLOOD DRAWS; Start 07/04/20 at 12:30 Sodium Chloride 1,000 ml @ 100 mls/hr Q10H IV Last administered on 07/05/20at 10:13; Start 07/04/20 at 12:30 Ondansetron HCl (Zofran) 4 mg PRN Q4HRS PRN IV NAUSEA/VOMITING; Start 07/04/20 at 12:30 Acetaminophen (Tylenol) 650 mg PRN Q4HRS PRN PO TEMP OVER 100.4F OR MILD PAIN; Start 07/04/20 at 12:30 Al Hydroxide/Mg Hydroxide (Mylanta Plus Xs) 30 ml PRN DAILY PRN PO HEARTBURN / GAS; Start 07/04/20 at 12:30 Sodium Monofluorophosphate (Fleet Adult) 133 ml PRN DAILY PRN IN CONSTIPATION; Start 07/04/20 at 12:30 Docusate Sodium (Colace) 100 mg PRN BID PRN PO HARD STOOLS; Start 07/04/20 at 12:30 Albuterol Sulfate (Ventolin Neb Soln) 2.5 mg PRN Q4HRS PRN NEB SHORTNESS OF BREATH; Start 07/04/20 at 12:30 Guaifenesin (Robitussin) 200 mg PRN Q4HRS PRN PO COUGH; Start 07/04/20 at 12:30 Lorazepam (Ativan) 0.5 mg PRN Q4HRS PRN PO ANXIETY / AGITATION; Start 07/04/20 at 12:30 Enoxaparin Sodium (Lovenox 100mg Syringe) 90 mg Q12HR SQ Last administered on 07/05/20at 10:13; Start 07/04/20 at 21:00 Lidocaine (Lidoderm) 1 patch DAILY TD Last administered on 07/05/20at 12:36; Start 07/05/20 at 12:00 Miscellaneous (Lidoderm Patch Removal) 1 ea QHS MC ; Start 07/05/20 at 21:00 Active Scripts Active Hydrochlorothiazide Capsule (Hydrochlorothiazide) 12.5 Mg Capsule 12.5 Mg PO DAILY Sodium Bicarbonate 650 Mg Tablet 1,300 Mg PO BID Tylenol (Acetaminophen) 325 Mg Tablet 2 Tab PO QID PRN Zyvox (Linezolid) 600 Mg Tablet 600 Mg PO BID Tramadol Hcl 50 Mg Tablet 50 Mg PO PRN Q6HRS PRN Reported Losartan Potassium 100 Mg Tablet 100 Mg PO DAILY Aspir 81 (Aspirin) 81 Mg Tablet.dr 1 Tab PO DAILY Jardiance (Empagliflozin) 10 Mg Tablet 10 Mg PO Synthroid (Levothyroxine Sodium) 25 Mcg Tablet 1 Tab PO DAILY Vitals/I & O Vital Sign - Last 24 Hours 07/04/20 07/04/20 07/04/2021 15:00 19:00 19:10 22:36 Temp 97.9 98.7 97.2 97.9 98.7 97.2 Pulse 95 96 88 Resp 26 22 20 B/P (MAP) 154/78 (103) 158/82 (107) 159/89 (112) Pulse Ox 98 91 100 O2 Delivery Room Air Room Air Room Air Nasal Cannula O2 Flow Rate 2.0 07/05/20 07/05/20 07/05/20 07/05/20 03:00 07:00 08:00 10:16 Temp 97.4 98.1 97.4 98.1 Pulse 84 84 Resp 17 18 20 B/P (MAP) 137/81 (99) 144/93 (110) Pulse Ox 100 100 O2 Delivery Room Air Room Air Nasal Cannula Nasal Cannula O2 Flow Rate 2.0 2.0 2.0 2.0 07/05/20 07/05/20 10:46 11:00 Temp 96.5 96.5 Pulse 84 Resp 18 20 B/P (MAP) 153/85 (107) Pulse Ox 98 O2 Delivery Nasal Cannula Room Air O2 Flow Rate 2.[address] HEAD/BRAIN WO Date: 07/04/2020 11:13 AM The brain parenchyma is normal in attenuation. No intra- or extra-axial mass or fluid collection. No acute hemorrhage. The ventricles are normal in size, shape, and morphology. The cuevas-white matter junction is normal. The subarachnoid cisterns are patent. The visualized paranasal sinuses are normal. The visualized portions of the orbits and globes are normal. The mastoid air cells are clear. The fish cleaner topogram shows no lytic lesion or fracture. Impression: No acute intracranial process. CAROTID DOPPLER SONOGRAM, 07/04 HISTORY: Syncope, dizziness, lightheadedness. TECHNIQUE: Cuevas scale and color Doppler sonographic evaluation of the neck with spectral waveform analysis was performed and static images are submitted for review. FINDINGS: RIGHT: The peak systolic velocity within the common carotid artery is 74 cm/sec. The peak systolic velocity within the internal carotid artery is 81 cm/sec and the end diastolic velocity within the internal carotid artery is 31 cm/sec. The ICA/CCA ratio is 0.8. Grayscale images demonstrate no grayscale stenosis. LEFT: The peak systolic velocity within the common carotid artery is 97 cm/sec. The peak systolic velocity within the internal carotid artery is 85 cm/sec and the end diastolic velocity within the internal carotid artery is 40 cm/sec. The ICA/CCA ratio is 0.9. Grayscale images demonstrate no grayscale stenosis. There is antegrade flow within both vertebral arteries. IMPRESSION: 1. No evidence of hemodynamically significant stenosis. Justicifation of Admission Dx: Justifications for Admission: Justification of Admission Dx: N/A DC CHRISTIANSON MD Jul 05, 2020 14:06
[2020-07-05 15:00] VITALS: BP 166/91
--- NOTE | 2020-07-05 16:41 | NUR ---
SW following for discharge planning. Spoke with RN and reviewed chart. Pt COVID negative. Pt on 2l 02, ADA diet, IV pain medication. PT recommendation is home, independent. SW following.
[2020-07-05 19:54] VITALS: BP 144/84
[2020-07-05] MEDS: PATCH REMOVAL. MC SCH (21:00)
--- NOTE | 2020-07-05 22:50 | PDOC ---
CARDIOLOGY PROGRESS NOTE SUBJECTIVE: Reports feeling normal but occ dyspnea persists OBJECTIVE: Vital Signs/I&O: Vital Signs Date Time Temp Pulse Resp B/P (MAP) Pulse Ox O2 Delivery O2 Flow Rate FiO2 07/05/20 20:00 Nasal Cannula 2.0 07/05/20 19:54 98.3 90 20 144/84 (104) 94 98.3 Objective: no changes CURRENT MEDICATIONS: Current Medications Medications (Trade) Dose Ordered Sig/Efe Route PRN Reason Start Time Stop Time Status Last Admin Dose Admin Aspirin (Ecotrin) 81 mg DAILY PO 07/05/20 09:00 07/05/20 10:12 Levothyroxine Sodium (Synthroid) 25 mcg DAILY PO 07/05/20 09:00 07/05/20 10:12 Lidocaine (Lidoderm) 1 patch DAILY TD 07/05/20 12:00 07/05/20 12:36 Miscellaneous (Lidoderm Patch Removal) 1 ea QHS MC 07/05/20 21:00 07/05/20 21:00 DIAGNOSTIC TESTING: Echo suggestive of moderate p. htn Labs: Laboratory Tests 07/05/20 03:30 Laboratory Tests Test 07/05/20 03:30 07/05/20 07:30 07/05/20 12:28 07/05/20 12:30 White Blood Count 7.7 x10^3/uL (4.0-11.0) Red Blood Count 4.49 x10^6/uL (4.30-5.70) Hemoglobin 12.7 g/dL (13.0-17.5) L Hematocrit 39.2 % (39.0-53.0) Mean Corpuscular Volume 87 fL (79-100) Mean Corpuscular Hemoglobin 28 pg (25-35) Mean Corpuscular Hemoglobin Concent 32 g/dL (31-37) Red Cell Distribution Width 18.3 % (11.5-14.5) H Platelet Count 249 x10^3/uL (140-400) Neutrophils (%) (Auto) 58 % (31-73) Lymphocytes (%) (Auto) 29 % (24-48) Monocytes (%) (Auto) 8 % (0-9) Eosinophils (%) (Auto) 4 % (0-3) H Basophils (%) (Auto) 1 % (0-3) Neutrophils # (Auto) 4.5 x10^3/uL (1.8-7.7) Lymphocytes # (Auto) 2.2 x10^3/uL (1.0-4.8) Monocytes # (Auto) 0.6 x10^3/uL (0.0-1.1) Eosinophils # (Auto) 0.3 x10^3/uL (0.0-0.7) Basophils # (Auto) 0.1 x10^3/uL (0.0-0.2) Sodium Level 141 mmol/L (136-145) Potassium Level 3.9 mmol/L (3.5-5.1) Chloride Level 108 mmol/L (98-107) H Carbon Dioxide Level 23 mmol/L (21-32) Anion Gap 10 (6-14) Blood Urea Nitrogen 30 mg/dL (8-26) H Creatinine 1.6 mg/dL (0.7-1.3) H Estimated GFR (Cockcroft-Gault) 46.0 BUN/Creatinine Ratio 19 (6-20) Glucose Level 85 mg/dL (70-99) Calcium Level 8.1 mg/dL (8.5-10.1) L Total Bilirubin 0.4 mg/dL (0.2-1.0) Aspartate Amino Transf (AST/SGOT) 35 U/L (15-37) Alkaline Phosphatase 60 U/L (46-116) Creatine Kinase 412 U/L (39-308) H Total Protein 6.8 g/dL (6.4-8.2) Albumin 2.4 g/dL (3.4-5.0) L Albumin/Globulin Ratio 0.5 (1.0-1.7) L Glucose (Fingerstick) 66 mg/dL (70-99) L 49 mg/dL (70-99) L 48 mg/dL (70-99) *L Test 07/05/20 12:33 07/05/20 13:05 07/05/20 16:51 07/05/20 21:17 Glucose (Fingerstick) 61 mg/dL (70-99) L 105 mg/dL (70-99) H 60 mg/dL (70-99) L 113 mg/dL (70-99) H ASSESSMENT: 1. Dyspnea, syncope - no clear etiology noted, echo with moderate p. htn, may be incidental? 2. CKD 3. Uncontrolled BP. PLAN: 1. Await stress testing. Plan for outpt loop recorder due to syncope. Justicifation of Admission Dx: Justifications for Admission: Justification of Admission Dx: N/A TRUNG RICKS MD Jul 05, 2020 22:50
[2020-07-05 23:25] VITALS: BP 162/85
[2020-07-06] VITALS (7 sets, daily range): BP systolic 137–213; BP diastolic 78–96
[2020-07-06 05:45] LABS: CALCIUM 8.2 mg/dL (8.5-10.1); CREATININE 1.5 mg/dL (0.7-1.3); GFR 49.5; POTASSIUM 4.6 mmol/L (3.5-5.1)
[2020-07-06] MEDS: IV NORMAL SALINE 1000ML BAG 1,000 ML IV SCH ×2 (07:00→14:30)
[2020-07-06] MEDS: LEVOTHYROXINE 25 MCG TABLET. PO SCH (08:00)
[2020-07-06] MEDS: INSULIN LISPRO 300 UNITS/3 ML VIAL. SQ SCH ×3 (08:00→17:00)
[2020-07-06] MEDS: LACTOBACILLUS RHAMNOSUS GG 1 CAPSULE. PO SCH ×2 (09:00→21:00)
[2020-07-06] MEDS: SODIUM BICARBONATE 650 MG TABLET. PO SCH ×2 (09:00→22:47)
[2020-07-06] MEDS: ASPIRIN ENTERIC COATED 81 MG TABLET.DR. PO SCH (09:00)
[2020-07-06] MEDS: LIDOCAINE (700MG/PATCH) PATCH. TD SCH (09:00)
[2020-07-06] MEDS ORDERED: REGADENOSON 0.4 MG/5 ML DISP.SYRIN. IV ONE (10:30)
--- NOTE | 2020-07-06 11:45 | CARD ---
MR#: [id number] Date of Study: 07/05/2020 Ordering Physician: TRUNG RICKS, Referring Physician: TRUNG RICKS, Tech: Robyn Saeed [facility] APPROVED REPORT EXAM: Two-dimensional and M-mode echocardiogram with Doppler and color Doppler. Other Information Quality : Good INDICATION Non STEMI RISK FACTORS Diabetes 2D DIMENSIONS RVDd2.9 (2.9-3.5cm)Left Atrium(2D)2.9 (1.6-4.0cm) IVSd1.0 (0.7-1.1cm)Aortic Root(2D)2.4 (2.0-3.7cm) LVDd3.9 (3.9-5.9cm)LVOT Diameter2.1 (1.8-2.4cm) PWd0.8 (0.7-1.1cm)LVDs2.7 (2.5-4.0cm) FS (%) 31.2 %SV39.8 ml LVEF(%)59.7 (>50%) Aortic Valve AoV Peak Hernan.141.6cm/sAoV VTI25.0cm AO Peak GR.8.0mmHgLVOT VTI 15.98cm AO Mean GR.4mmHgAVA (VTI)2.10cm2 Mitral Valve MV E Zgmmztmo85.4cm/sMV DECEL [id number] MV A Qkwlgwnh23.9cm/sE/A Ratio1.1 TDI Lateral E' P. V7.27cm/sMedial E' P. V3.99cm/s E/Lateral E'12.3E/Medial E'22.4 Tricuspid Valve TR P. Kjeeeqsy847wl/sRAP [id number] TR Peak Gr.99snHnKMST90fqUp Pulmonary Vein S1 Hprfhkmj66.8cm/sS2 Mhgcedjc06.22cm/s D2 Ltkvlrzy48.2cm/s LEFT VENTRICLE The left ventricle is normal size. There is normal left ventricular wall thickness. The left ventricu lar systolic function is normal and the ejection fraction is within normal range. The Ejection Fracti on is 60-65%. Septal motion consistent with conduction abnormality. Transmitral Doppler flow pattern is Grade II-pseudonormal filling dynamics. RIGHT VENTRICLE The right ventricle is normal size. The right ventricular systolic function is normal. ATRIA The left atrium size is normal. The right atrium size is normal. The interatrial septum is intact wit h no evidence for an atrial septal defect or patent foramen ovale as noted on 2-D or Doppler imaging. AORTIC VALVE The aortic valve is calcified but opens well. Doppler and Color Flow revealed no significant aortic r egurgitation. There is no significant aortic valvular stenosis. MITRAL VALVE The mitral valve is calcified but opens well. There is no evidence of mitral valve prolapse. There is no mitral valve stenosis. Doppler and Color-flow revealed trace to mild mitral regurgitation. TRICUSPID VALVE The tricuspid valve is normal in structure and function. Doppler and Color Flow revealed mild tricusp id regurgitation. The PA pressure was estimated at >55 mmHg. There is no tricuspid valve stenosis. PULMONIC VALVE The pulmonic valve is not well visualized. Doppler and Color Flow revealed no pulmonic valvular regur gitation. There is no pulmonic valvular stenosis. GREAT VESSELS The aortic root is normal in size. The ascending aorta is not well seen. The IVC is dilated and colla pses <50% with inspiration. PERICARDIAL EFFUSION There is a small circumferential pericardial effusion with no hemodynamic significance. Critical Notification Critical Value: No <Conclusion> The left ventricle is normal size. The left ventricular systolic function is normal and the ejection fraction is within normal range. The Ejection Fraction is 60-65%. Septal motion consistent with conduction abnormality. Doppler and Color Flow revealed no significant aortic regurgitation. There is no significant aortic valvular stenosis. Doppler and Color-flow revealed trace to mild mitral regurgitation. Doppler and Color Flow revealed mild tricuspid regurgitation. The PA pressure was estimated at >55 mmHg. There is a small circumferential pericardial effusion with no hemodynamic significance. Signed by : Kamran Stewart MD Electronically Approved : 07/06/2020 11:44:33
--- NOTE | 2020-07-06 13:18 | PDOC ---
PROGRESS NOTES Date of Service DATE: 07/06/20 TIME: 13:17 Assessment Problems Medical Problems: (1) Elevated d-dimer Status: Acute (2) Elevated troponin Status: Acute (3) Left shoulder strain Status: Acute (4) Suspected 2019 novel coronavirus infection Status: Acute (5) Syncope Status: Acute Syncope, sounds vasovagal, no evidence that he had a stroke or a seizure. Dyspnea, under investigation for Covid, serology negative Diabetes, hypertension, hyperlipidemia, acute kidney injury on chronic kidney disease III Plan No additional neurological studies needed Subjective No dizziness, no syncope Objective Vital Signs Date Time Temp Pulse Resp B/P (MAP) Pulse Ox O2 Delivery O2 Flow Rate FiO2 07/06/20 03:14 98.1 97 137/88 (104) 91 NonRebreather Mask 98.1 07/05/20 23:25 28 07/05/20 20:00 2.0 Intake and Output 07/06/20 07:00 Intake Total 1780 ml Output Total 0 ml Balance 1780 ml Intake Oral 780 ml IV Total 1000 ml Output Urine Total 0 ml # Voids 4 PHYSICAL EXAM Bright and alert Review of Relevant I have reviewed the following items isidro (where applicable) has been applied. Labs Laboratory Tests Test 07/04/20 13:35 07/04/20 14:30 07/04/20 15:57 07/04/20 18:30 Urine Collection Type Void Urine Color Yellow Urine Clarity Clear Urine pH 5.5 (<5.0-8.0) Urine Specific [place] 1.020 (1.000-1.030) Urine Protein 100 mg/dL (NEG-TRACE) Urine Glucose (UA) >=1000 mg/dL (NEG) Urine Ketones (Stick) Negative mg/dL (NEG) Urine Blood Trace (NEG) Urine Nitrite Negative (NEG) Urine Bilirubin Negative (NEG) Urine Urobilinogen Dipstick 0.2 mg/dL (0.2 mg/dL) Urine Leukocyte Esterase Negative (NEG) Urine RBC Rare /HPF (0-2) Urine WBC 0 /HPF (0-4) Urine Squamous Epithelial Cells Occ /LPF Urine Bacteria 0 /HPF (0-FEW) Troponin I Quantitative 0.079 ng/mL (0.000-0.055) 0.077 ng/mL (0.000-0.055) Glucose (Fingerstick) 89 mg/dL (70-99) Test 07/04/20 19:49 07/05/20 03:30 07/05/20 07:30 07/05/20 12:28 Glucose (Fingerstick) 155 mg/dL (70-99) 66 mg/dL (70-99) 49 mg/dL (70-99) White Blood Count 7.7 x10^3/uL (4.0-11.0) Red Blood Count 4.49 x10^6/uL (4.30-5.70) Hemoglobin 12.7 g/dL (13.0-17.5) Hematocrit 39.2 % (39.0-53.0) Mean Corpuscular Volume 87 fL (79-100) Mean Corpuscular Hemoglobin 28 pg (25-35) Mean Corpuscular Hemoglobin Concent 32 g/dL (31-37) Red Cell Distribution Width 18.3 % (11.5-14.5) Platelet Count 249 x10^3/uL (140-400) Neutrophils (%) (Auto) 58 % (31-73) Lymphocytes (%) (Auto) 29 % (24-48) Monocytes (%) (Auto) 8 % (0-9) Eosinophils (%) (Auto) 4 % (0-3) Basophils (%) (Auto) 1 % (0-3) Neutrophils # (Auto) 4.5 x10^3/uL (1.8-7.7) Lymphocytes # (Auto) 2.2 x10^3/uL (1.0-4.8) Monocytes # (Auto) 0.6 x10^3/uL (0.0-1.1) Eosinophils # (Auto) 0.3 x10^3/uL (0.0-0.7) Basophils # (Auto) 0.1 x10^3/uL (0.0-0.2) Sodium Level 141 mmol/L (136-145) Potassium Level 3.9 mmol/L (3.5-5.1) Chloride Level 108 mmol/L (98-107) Carbon Dioxide Level 23 mmol/L (21-32) Anion Gap 10 (6-14) Blood Urea Nitrogen 30 mg/dL (8-26) Creatinine 1.6 mg/dL (0.7-1.3) Estimated GFR (Cockcroft-Gault) 46.0 BUN/Creatinine Ratio 19 (6-20) Glucose Level 85 mg/dL (70-99) Calcium Level 8.1 mg/dL (8.5-10.1) Total Bilirubin 0.4 mg/dL (0.2-1.0) Aspartate Amino Transf (AST/SGOT) 35 U/L (15-37) Alanine Aminotransferase (ALT/SGPT) 27 U/L (16-63) Alkaline Phosphatase 60 U/L (46-116) Creatine Kinase 412 U/L (39-308) Total Protein 6.8 g/dL (6.4-8.2) Albumin 2.4 g/dL (3.4-5.0) Albumin/Globulin Ratio 0.5 (1.0-1.7) Test 07/05/20 12:30 07/05/20 12:33 07/05/20 13:05 07/05/20 16:51 Glucose (Fingerstick) 48 mg/dL (70-99) 61 mg/dL (70-99) 105 mg/dL (70-99) 60 mg/dL (70-99) Test 07/05/20 21:17 07/06/20 04:40 07/06/20 07:10 Glucose (Fingerstick) 113 mg/dL (70-99) 76 mg/dL (70-99) Sodium Level 144 mmol/L (136-145) Potassium Level 4.6 mmol/L (3.5-5.1) Chloride Level 110 mmol/L (98-107) Carbon Dioxide Level 23 mmol/L (21-32) Anion Gap 11 (6-14) Blood Urea Nitrogen 29 mg/dL (8-26) Creatinine 1.5 mg/dL (0.7-1.3) Estimated GFR (Cockcroft-Gault) 49.5 Glucose Level 97 mg/dL (70-99) Calcium Level 8.2 mg/dL (8.5-10.1) Troponin I Quantitative 0.096 ng/mL (0.000-0.055) Laboratory Tests Test 07/05/20 16:51 07/05/20 21:17 07/06/20 04:40 07/06/20 07:10 Glucose (Fingerstick) 60 mg/dL (70-99) 113 mg/dL (70-99) 76 mg/dL (70-99) Sodium Level 144 mmol/L (136-145) Potassium Level 4.6 mmol/L (3.5-5.1) Chloride Level 110 mmol/L (98-107) Carbon Dioxide Level 23 mmol/L (21-32) Anion Gap 11 (6-14) Blood Urea Nitrogen 29 mg/dL (8-26) Creatinine 1.5 mg/dL (0.7-1.3) Estimated GFR (Cockcroft-Gault) 49.5 Glucose Level 97 mg/dL (70-99) Calcium Level 8.2 mg/dL (8.5-10.1) Troponin I Quantitative 0.096 ng/mL (0.000-0.055) Microbiology 07/04/20 Blood Culture - Preliminary, Resulted NO GROWTH AFTER 2 DAYS Medications Current Medications Sodium Chloride 1,000 ml @ 1,000 mls/hr 1X ONCE IV Last administered on 07/04/20at 08:19; Start 07/04/20 at 07:45; Stop 07/04/20 at 08:44; Status DC Fentanyl Citrate (Fentanyl 2ml Vial) 50 mcg 1X ONCE IV Last administered on 07/04/20at 08:20; Start 07/04/20 at 07:45; Stop 07/04/20 at 07:46; Status DC Enoxaparin Sodium (Lovenox 100mg Syringe) 90 mg 1X ONCE SQ Last administered on 07/04/20at 12:20; Start 07/04/20 at 11:15; Stop 07/04/20 at 11:16; Status DC Aspirin (Ecotrin) 325 mg 1X ONCE PO Last administered on 07/04/20at 12:20; Start 07/04/20 at 11:15; Stop 07/04/20 at 11:16; Status DC Ondansetron HCl (Zofran) 4 mg PRN Q8HRS PRN IV NAUSEA/VOMITING; Start 07/04/20 at 11:30; Stop 07/05/20 at 10:45; Status DC Insulin Human Lispro (HumaLOG) 0-5 UNITS TIDWMEALS SQ ; Start 07/04/20 at 17:00 Dextrose (Dextrose 50%-Water Syringe) 12.5 gm PRN Q15MIN PRN IV SEE COMMENTS Last administered on 07/05/20at 12:37; Start 07/04/20 at 11:30 Fentanyl Citrate (Fentanyl 2ml Vial) 50 mcg PRN Q2HR PRN IVP PAIN Last administered on 07/05/20at 10:16; Start 07/04/20 at 11:30 Acetaminophen (Tylenol) 650 mg PRN QID PRN PO PAIN MILD; Start 07/04/20 at 11:30 Aspirin (Ecotrin) 81 mg DAILY PO Last administered on 07/05/20at 10:12; Start at 09:00 Lactobacillus Rhamnosus (Culturelle) 1 cap BID PO Last administered on 07/05/20at 21:16; Start 07/04/20 at 21:00 Levothyroxine Sodium (Synthroid) 25 mcg DAILY PO Last administered on 07/05/20at 10:12; Start 07/05/20 at 09:00 Sodium Bicarbonate (Sodium Bicarbonate) 1,300 mg BID PO Last administered on 07/05/20at 21:16; Start 07/04/20 at 21:00 Enoxaparin Sodium (Lovenox 80mg Syringe) 90 mg BID SQ Last administered on 07/04/20at 20:47; Start 07/04/20 at 21:00; Stop 07/04/20 at 20:49; Status DC Sodium Chloride (Normal Saline Flush) 3 ml QSHIFT PRN IV AFTER MEDS AND BLOOD DRAWS; Start 07/04/20 at 12:30 Sodium Chloride 1,000 ml @ 100 mls/hr Q10H IV Last administered on 07/05/20at 21:17; Start 07/04/20 at 12:30 Ondansetron HCl (Zofran) 4 mg PRN Q4HRS PRN IV NAUSEA/VOMITING; Start 07/04/20 at 12:30 Acetaminophen (Tylenol) 650 mg PRN Q4HRS PRN PO TEMP OVER 100.4F OR MILD PAIN; Start 07/04/20 at 12:30 Al Hydroxide/Mg Hydroxide (Mylanta Plus Xs) 30 ml PRN DAILY PRN PO HEARTBURN / GAS; Start 07/04/20 at 12:30 Sodium Monofluorophosphate (Fleet Adult) 133 ml PRN DAILY PRN NE CONSTIPATION; Start 07/04/20 at 12:30 Docusate Sodium (Colace) 100 mg PRN BID PRN PO HARD STOOLS; Start 07/04/20 at 12:30 Albuterol Sulfate (Ventolin Neb Soln) 2.5 mg PRN Q4HRS PRN NEB SHORTNESS OF BREATH; Start 07/04/20 at 12:30 Guaifenesin (Robitussin) 200 mg PRN Q4HRS PRN PO COUGH; Start 07/04/20 at 12:30 Lorazepam (Ativan) 0.5 mg PRN Q4HRS PRN PO ANXIETY / AGITATION; Start 07/04/20 at 12:30 Enoxaparin Sodium (Lovenox 100mg Syringe) 90 mg Q12HR SQ Last administered on 07/05/20at 10:13; Start 07/04/20 at 21:00 Lidocaine (Lidoderm) 1 patch DAILY TD Last administered on 07/05/20at 12:36; Start 07/05/20 at 12:00 Miscellaneous (Lidoderm Patch Removal) 1 ea QHS MC Last administered on 07/05/20at 21:00; Start 07/05/20 at 21:00 Regadenoson (Lexiscan) 0.4 mg 1X ONCE IV Last administered on 07/06/20at 11:00; Start 07/06/20 at 10:30; Stop 07/06/20 at 10:31; Status DC Active Scripts Active Hydrochlorothiazide Capsule (Hydrochlorothiazide) 12.5 Mg Capsule 12.5 Mg PO DAILY Sodium Bicarbonate 650 Mg Tablet 1,300 Mg PO BID Tylenol (Acetaminophen) 325 Mg Tablet 2 Tab PO QID PRN Zyvox (Linezolid) 600 Mg Tablet 600 Mg PO BID Tramadol Hcl 50 Mg Tablet 50 Mg PO PRN Q6HRS PRN Reported Losartan Potassium 100 Mg Tablet 100 Mg PO DAILY Aspir 81 (Aspirin) 81 Mg Tablet.dr 1 Tab PO DAILY Jardiance (Empagliflozin) 10 Mg Tablet 10 Mg PO Synthroid (Levothyroxine Sodium) 25 Mcg Tablet 1 Tab PO DAILY Vitals/I & O Vital Sign - Last 24 Hours 07/05/20 07/05/20 07/05/20 07/05/20 15:00 19:54 20:00 23:25 Temp 97.5 98.3 98.4 97.5 98.3 98.4 Pulse 81 90 97 Resp 20 20 28 B/P (MAP) 166/91 (116) 144/84 (104) 162/85 (110) Pulse Ox 98 94 95 O2 Delivery Room Air Room Air Nasal Cannula Room Air O2 Flow Rate 2.0 07/06/20 03:14 Temp 98.1 98.1 Pulse 97 B/P (MAP) 137/88 (104) Pulse Ox 91 O2 Delivery NonRebreather Mask Intake and Output 07/05/20 07/05/20 07/06/20 15:00 23:00 07:00 Intake Total 780 ml 1000 ml 0 ml Output Total 0 ml Balance 780 ml 1000 ml 0 ml Justicifation of Admission Dx: Justifications for Admission: Justification of Admission Dx: N/A DC CHRISTIANSON MD Jul 06, 2020 13:18
--- NOTE | 2020-07-06 14:10 | PDOC ---
DATE OF SERVICE DATE: 07/06/20 TIME: 14:10 SUBJECTIVE ROS stable OBJECTIVE Vital Signs Vital Signs Date Time Temp Pulse Resp B/P (MAP) Pulse Ox O2 Delivery O2 Flow Rate FiO2 07/06/20 03:14 98.1 97 137/88 (104) 91 NonRebreather Mask 98.1 07/05/20 23:25 28 07/05/20 20:00 2.0 I & 0 Intake and Output 07/06/20 07:00 Intake Total 1780 ml Output Total 0 ml Balance 1780 ml Intake Oral 780 ml IV Total 1000 ml Output Urine Total 0 ml # Voids 4 PHYSICAL EXAM Physical Exam General: NAD, sitting up in chair HEENT: OM moist Neck Supple Lungs: Clear to auscultation , Non labored, On RA Heart: RRR, Abdomen: Normal bowel sounds, Soft Extremities: No cyanosis, No edema Neuro: Normal speech, Cranial nerves 3-12 NL Psych/Mental Status: Mental status NL, Mood NL No Griffin, No SP or CVA tenderness DIAGNOSIS/ASSESSMENT Assessment & Plan DILLON - Pre-renal vs CKD , Supportive care, avoid nephrotoxins , maintain hydration CKD 3A - DM, HTN Present since 2015 per [facility] records , Stable renal function since , imaging was unremarkable , DILLON on CKD at last hospitalization Follows with us, recent appt with NURSING HOME PHYSICIAN Diabetes- Well controlled per pt HTN - stable Syncope and collapse History of methicillin-resistant Staphylococcus aureus perineal abscess. COMMENT/RELEVANT DATA Meds Current Medications Medications (Trade) Dose Ordered Sig/Efe Start Time Stop Time Status Last Admin Dose Admin Acetaminophen (Tylenol) 650 mg PRN Q4HRS PRN 07/04/20 12:30 Al Hydroxide/Mg Hydroxide (Mylanta Plus Xs) 30 ml PRN DAILY PRN 07/04/20 12:30 Albuterol Sulfate (Ventolin Neb Soln) 2.5 mg PRN Q4HRS PRN 07/04/20 12:30 Aspirin (Ecotrin) 81 mg DAILY 07/05/20 09:00 07/05/20 10:12 81 MG Dextrose (Dextrose 50%-Water Syringe) 12.5 gm PRN Q15MIN PRN 07/04/20 11:30 07/05/20 12:37 12.5 GM Docusate Sodium (Colace) 100 mg PRN BID PRN 07/04/20 12:30 Enoxaparin Sodium (Lovenox 100mg Syringe) 90 mg Q12HR 07/04/20 21:00 07/05/20 10:13 90 MG Enoxaparin Sodium (Lovenox 80mg Syringe) 90 mg BID 07/04/20 21:00 07/04/20 20:49 DC 07/04/20 20:47 80 MG Fentanyl Citrate (Fentanyl 2ml Vial) 50 mcg PRN Q2HR PRN 07/04/20 11:30 07/05/20 10:16 50 MCG Guaifenesin (Robitussin) 200 mg PRN Q4HRS PRN 07/04/20 12:30 Insulin Human Lispro (HumaLOG) 0-5 UNITS TIDWMEALS 07/04/20 17:00 Lactobacillus Rhamnosus (Culturelle) 1 cap BID 07/04/20 21:00 07/05/20 21:16 1 CAP Levothyroxine Sodium (Synthroid) 25 mcg DAILY 07/05/20 09:00 07/05/20 10:12 25 MCG Lidocaine (Lidoderm) 1 patch DAILY 07/05/20 12:00 07/05/20 12:36 1 PATCH Lorazepam (Ativan) 0.5 mg PRN Q4HRS PRN 07/04/20 12:30 Miscellaneous (Lidoderm Patch Removal) 1 ea QHS 07/05/20 21:00 07/05/20 21:00 1 EA Ondansetron HCl (Zofran) 4 mg PRN Q4HRS PRN 07/04/20 12:30 Regadenoson (Lexiscan) 0.4 mg 1X ONCE 07/06/20 10:30 07/06/20 10:31 DC 07/06/20 11:00 0.4 MG Sodium Monofluorophosphate (Fleet Adult) 133 ml PRN DAILY PRN 07/04/20 12:30 Sodium Bicarbonate (Sodium Bicarbonate) 1,300 mg BID 07/04/20 21:00 07/05/20 21:16 1,300 MG Sodium Chloride 1,000 ml @ 100 mls/hr Q10H 07/04/20 12:30 07/05/20 21:17 100 MLS/HR Sodium Chloride (Normal Saline Flush) 3 ml QSHIFT PRN 07/04/20 12:30 Lab Laboratory Tests Test 07/05/20 16:51 2/15/21 21:17 07/06/20 04:40 07/06/20 07:10 Glucose (Fingerstick) 60 mg/dL (70-99) 113 mg/dL (70-99) 76 mg/dL (70-99) Sodium Level 144 mmol/L (136-145) Potassium Level 4.6 mmol/L (3.5-5.1) Chloride Level 110 mmol/L (98-107) Carbon Dioxide Level 23 mmol/L (21-32) Anion Gap 11 (6-14) Blood Urea Nitrogen 29 mg/dL (8-26) Creatinine 1.5 mg/dL (0.7-1.3) Estimated GFR (Cockcroft-Gault) 49.5 Glucose Level 97 mg/dL (70-99) Calcium Level 8.2 mg/dL (8.5-10.1) Troponin I Quantitative 0.096 ng/mL (0.000-0.055) Results All relevant outside records, renal labs, imaging studies, telemetry/EKG's were reviewed. Justicifation of Admission Dx: Justifications for Admission: Justification of Admission Dx: N/A MEENA LEONARD MD Jul 06, 2020 14:10
--- NOTE | 2020-07-06 15:27 | PDOC ---
ANTONIO GOODMAN PRESSURE SUPERVISOR 07/06/20 1527: CARDIO Progress Notes Date and Time Date of Service 07/06/2020 Time of Evaluation 1130 Subjective Subjective: No Chest Pain, No shortness of breath, No Palpitations Vitals Vitals Vital Signs Date Time Temp Pulse Resp B/P (MAP) Pulse Ox O2 Delivery O2 Flow Rate FiO2 07/06/20 08:00 Room Air 07/06/20 07:00 98.0 96 20 152/92 (112) 98.0 07/06/20 03:14 91 07/05/20 20:00 2.0 Weight Weight [ ] Input and Output Intake and Output Intake and Output 07/06/20 07:00 Intake Total 1780 ml Output Total 0 ml Balance 1780 ml Intake Oral 780 ml IV Total 1000 ml Output Urine Total 0 ml # Voids 4 Laboratory Labs Laboratory Tests Test 07/05/20 16:51 07/05/20 21:17 07/06/20 04:40 07/06/20 07:10 Glucose (Fingerstick) 60 mg/dL (70-99) 113 mg/dL (70-99) 76 mg/dL (70-99) Sodium Level 144 mmol/L (136-145) Potassium Level 4.6 mmol/L (3.5-5.1) Chloride Level 110 mmol/L (98-107) Carbon Dioxide Level 23 mmol/L (21-32) Anion Gap 11 (6-14) Blood Urea Nitrogen 29 mg/dL (8-26) Creatinine 1.5 mg/dL (0.7-1.3) Estimated GFR (Cockcroft-Gault) 49.5 Glucose Level 97 mg/dL (70-99) Calcium Level 8.2 mg/dL (8.5-10.1) Troponin I Quantitative 0.096 ng/mL (0.000-0.055) Microbiology Micro Microbiology 07/04/20 Blood Culture - Preliminary, Resulted NO GROWTH AFTER 2 DAYS Physical Exam HEENT: Neck Supple W Full Motion Chest: Symmetric LUNGS: Other (diminished bases) Heart: S1S2, RRR (SR with PVCs) Abdomen: Soft N/T Extremities: No Calf Tenderness Neurology: alert, oriented, follow commands Assessment Assessment 1. Syncope: possibly from hypoglycemic reaction 2. Mild troponin elevation: possibly demand mediated. Peaked at 0.1, No acute EKG changes. EF and WM nml 3. HTN urgency: better 4. DILLON with mild rhabdomyolysis: prerenal. Nephrology following 5. Dyspnea: negative for PE per V/Q. Covid-19 neg. Negative for pneumonia. 6. DM2 with hypoglycemia 7. Pulmonary HTN: PAP >55 mmHg 8. Hypothyroidism: on replacement Recommendations 1. MPI today. If this is unremarkable then consider CT chest and consult pulmonary 2. FLP, TSH, Mg 3. Hold losartan and HCTZ. Monitor BP trend. May use norvasc. 4. Secondary prevention measures. Hold statin for now with elevated CK Justicifation of Admission Dx: Justifications for Admission: Justification of Admission Dx: N/A TRUNG RICKS MD 07/07/20 0815: CARDIO Progress Notes Plan Plan Pt. seen and examined. Agree with above ELECTRONIC PREPRESS TECHNICIAN note. MPI wnl. Echo with mild to moderate p. HTN. Not significant. Had an episode with stress testing of LH/dizziness, appears mostly vasovagal. Check orthostatics. Consider outpt tilt table study late entry for 07/06/20 ANTONIO GOODMAN APRN Jul 06, 2020 15:27 TRUNG RICKS MD Jul 07, 2020 08:15
--- NOTE | 2020-07-06 15:33 | NUR ---
SW following for discharge planning. Spoke with RN and reviewed chart. Pt now on room air. Stress test today with possible discharge home, self-care. No anticipated SW needs on discharge.
[2020-07-06 16:17] LABS: CHOLESTEROL/HDL RATIO 5.4; MAGNESIUM 1.7 mg/dL (1.8-2.4)
--- NOTE | 2020-07-06 16:35 | RAD ---
MR#: [id number] Date of Study: 07/06/2020 Ordering Physician: TRUNG RICKS, Referring Physician: DERRELL CHURCH Tech: DECLAN Urbina, ARRRita (R) (N) APPROVED REPORT Test Type: Pharmacological Stress Nurse/Tech: ELIAS COLON Test Indications: SYNCOPE Cardiac History: HTN, SYNCOPE, SEE EMR Medications: SEE EMR Medical History: SEE EMR Resting ECG: SR Resting Heart Rate: 92 bpm Resting Blood Pressure: 153/89mmHg Pretest Chest Pain: No chest pain Nurse/Tech Notes S1S2, LUNGS CTA, PT DENIED CP OR SOA AT REST. VSS. Consent: The procedure was explained to the patient in lay terms. Informed consent was witnessed. Marty eout was entered into [employer]. History and Stress Test performed by KEVAN Lorenzo Pharm. Details Pharmacologic stress testing was performed using 0.4mg per 5ml of regadenoson given intravenously ove r 7-10 seconds. Stress Symptoms DURING TESTING, PT C/O SOA, DENIED CP. VSS. Gabbi GOODMAN APRN PRESENT AFTER TEST AND REVIEWED EKG'S. POST EXERCISE Reason for Termination: Infusion complete Max HR: 108 bpm Max Blood Pressure: 150/86mmHg Blood Pressure response to exercise: Normal blood pressure response during stress. Heart Rate response to exercise: WNL Chest Pain: No. Arrhythmia: No. INTERPRETATION Stress EKG Conclusion: The resting EKG shows a sinus rhythm with nonspecific ST-T wave changes. The stress EKG showed no significant changes from baseline. No EKG evidence of stress-induced ischemia. Imaging Protocol IMAGE PROTOCOL: Rest Tc-99m/stress Tc-99m 1 day Rest: Stress: Viability: Radiopharm.Tc99m [id number] Sestamibi Dose10.9mCi 31.8mCi Img Date 07/06/2020 07/06/2020 Inj-Img [id number]. 90min. Rest Admin Site:IV - Right HandAdministrator:KEVAN Lorenzo Stress Admin Site: IV - Right HandAdministrator: KEVAN Lorenzo STRESS DATA End Diast. Vol.64.0mlLVEDV index BSA30.0ml End Syst. Vol.19.0mlLVESV index BSA9.0ml Myocardial Ylhg823.0gEject. Sydkxwzd09.0% Stress Scores Regional WT1.00Summed WT9.00 Regional WM0.00Summed WM0.00 LV Perfusion The stress scans showed no significant defects. The rest scans showed no significant defects. Nuclear imaging shows no reversible ischemia or infarct. Wall Motion Left ventricular systolic function is normal with no regional wall motion abnormalities, an ejection fraction of 64% and a TID of 1.03. LV Perf. Quant 17 Seg. SSS3.00 17 Seg. SRS2.00 17 Seg. SDS1.00 Stress Defect Extent (% LAD)5.00Rest Defect Extent (% LAD)4.40Rev. Defect Extent (% LAD)0.00 Stress Defect Extent (% LCX) 0.00Rest Defect Extent (% LCX)0.00Rev. Defect Extent (% LCX)0.00 Stress Defect Extent (% RCA)0.00Rest Defect Extent (% RCA)0.00Rev. Defect Extent (% RCA)0.00 Stress Defect Extent (% OSIEL)1.70Rest Defect Extent (% OSIEL)1.50Rev. Defect Extent (% OSIEL)0.00 IMPRESSION Comparison of Rest to Stress Regional Wall Thickening: No Change Conclusion 1. No EKG evidence of stress-induced ischemia. 2. Nuclear imaging shows no reversible ischemia or infarct. 3. Normal left ventricular systolic function with an ejection fraction of 64%. 4. Low risk Lexiscan nuclear stress test. Signed by : Kamran Stewart MD Electronically Approved : 07/06/2020 16:35:11
[2020-07-06] MEDS ORDERED: MAGNESIUM SULFATE 1GM 100 ML IV ONE (17:30)
[2020-07-06 18:44] LABS: FREE T4 0.99 ng/dL (0.76-1.46)
--- NOTE | 2020-07-06 18:59 | PDOC ---
[employer] PROGRESS NOTE Date of Service DOS: DATE: 07/06/20 TIME: 18:58 Chief Complaint Chief Complaint A/P: Syncope and collapse Elevated troponin Diabetes mellitus. Hypertension. Chronic kidney disease. History of methicillin-resistant Staphylococcus aureus perineal abscess. History of Present Illness History of Present Illness Mr Stein is a 49-year-old male with past medical history of hypertension, diabetes and hyperlipidemia admitted to the hospital after a syncopal episode at work preceded by shortness of breath. He awoke with left shoulder pain, no loss of bowel or bladder, no tongue biting. He did note shortness of breath and some chest pain. Noted to have an elevated troponin and an elevated D-dimer and ultimately underwent evaluation for a V/Q scan, which was unremarkable and his lower extremity DVT scan also did not reveal any significant DVT. He is not requiring O2. Negative CT head and negative carotid dopplers. 07/05: No overnight events. Awaiting echocardiogram currently. Some right thigh pain and some left shoulder pain. He is short of breath with minimal chest pain today. COVID 19 neg. Glucose low. Afebrile. Still short of breath and weak. Stress test negative. TSH > 20. Vitals/I&O Vitals/I&O: Vital Signs Date Time Temp Pulse Resp B/P (MAP) Pulse Ox O2 Delivery O2 Flow Rate FiO2 07/06/20 18:33 100 148/92 (110) 07/06/20 15:00 97.6 18 92 Room Air 97.6 07/05/20 20:00 2.0 I & O 07/05/20 07/05/20 07/06/20 15:00 23:00 07:00 Intake Total 780 ml 1000 ml 0 ml Output Total 0 ml Balance 780 ml 1000 ml 0 ml Physical Exam General: Alert, Oriented X3, Cooperative, No acute distress Abdomen: Normal bowel sounds, Soft Extremities: No clubbing, No cyanosis Skin: No rashes Labs Labs: Laboratory Tests Test 07/05/20 21:17 07/06/20 04:40 07/06/20 07:10 07/06/20 16:15 Glucose (Fingerstick) 113 mg/dL (70-99) 76 mg/dL (70-99) 63 mg/dL (70-99) Sodium Level 144 mmol/L (136-145) Potassium Level 4.6 mmol/L (3.5-5.1) Chloride Level 110 mmol/L (98-107) Carbon Dioxide Level 23 mmol/L (21-32) Anion Gap 11 (6-14) Blood Urea Nitrogen 29 mg/dL (8-26) Creatinine 1.5 mg/dL (0.7-1.3) Estimated GFR (Cockcroft-Gault) 49.5 Glucose Level 97 mg/dL (70-99) Calcium Level 8.2 mg/dL (8.5-10.1) Magnesium Level 1.7 mg/dL (1.8-2.4) Troponin I Quantitative 0.096 ng/mL (0.000-0.055) Triglycerides Level 282 mg/dL (0-150) Cholesterol Level 146 mg/dL (0-200) LDL Cholesterol, Calculated 63 mg/dL (0-100) VLDL Cholesterol, Calculated 56 mg/dL (0-40) Non-HDL Cholesterol Calculated 119 mg/dL (0-129) HDL Cholesterol 27 mg/dL (40-60) Cholesterol/HDL Ratio 5.4 Thyroid Stimulating Hormone (TSH) 20.997 uIU/mL (0.358-3.74) Free Thyroxine 0.99 ng/dL (0.76-1.46) Free Triiodothyronine (T3) pg/mL 1.42 pg/mL (2.18-3.98) Assessment and Plan Assessmemt and Plan Problems Medical Problems: (1) Elevated d-dimer Status: Acute (2) Elevated troponin Status: Acute (3) Left shoulder strain Status: Acute (4) Suspected 2019 novel coronavirus infection Status: Acute (5) Syncope Status: Acute Comment Review of Relevant I have reviewed the following items isidro (where applicable) has been applied. Medications: Current Medications Medications (Trade) Dose Ordered Sig/Efe Route PRN Reason Start Time Stop Time Status Last Admin Dose Admin Miscellaneous (Lidoderm Patch Removal) 1 ea QHS MC 07/05/20 21:00 07/05/20 21:00 Regadenoson (Lexiscan) 0.4 mg 1X ONCE IV 07/06/20 10:30 07/06/20 10:31 DC 07/06/20 11:00 Magnesium Sulfate/ Dextrose 100 ml @ 100 mls/hr 1X ONCE IV 07/06/20 17:30 07/06/20 18:29 DC 07/06/20 17:09 Justifications for Admission Other Justification syncopem elevated troponin FIDENCIO HAGER MD Jul 06, 2020 18:59
[2020-07-06] MEDS: IV DEXTROSE 5 %-0.45 % NACL 1,000 ML IV ONE (19:00)
[2020-07-06] MEDS: PATCH REMOVAL. MC SCH (21:00)
--- NOTE | 2020-07-06 22:41 | RAD ---
US THYROID History: Reason: Hypothyoidism / Spl. Instructions: / History: Comparison: None. Technique: Multiple grayscale and color Doppler images of the thyroid gland were obtained. Findings: Right thyroid lobe: 3.6 x 1.8 x 1.5 cm. Homogeneous echotexture. Left thyroid lobe: 3.1 x 1.9 x 1.3 cm. Homogeneous echotexture. Isthmus: 0.5 cm. Right thyroid cystic nodule measures 0.5 x 0.4 cm. TI-RADS 1. ACR Thyroid Imaging, Reporting And Data System (TI-RADS): White Paper Of The ACR TI-RADS Committee. J ournal of the [employer] [employer], volume 14, issue 5, pages 587-595 (September 2016). IMPRESSION: 1. Small right thyroid cyst. Electronically signed by: Pastor Kang DO (07/06/2020 10:39 PM) [facility]
--- NOTE | 2020-07-07 00:01 | NUR ---
Patient sitting up in chair in room at shift change, eating box lunch and request to take shower before going to bed. Upon entering patient 's room at 2100 patient sitting in chair in room noted to be diaphoretic. Patient reports he was attempting to take shower and got into the bathroom and felt as if he was going to pass out so he went back to his chair and sat down. Unfortunately patient was not on monitor at the time as he was getting ready to get into the shower. BP at 2106 is 213/96 with HR 107 and then at 2106 BP 167/93 with HR 86. O2 Sat 93% on RA. FSBS 142. Denies nausea. Describes feeling of floating. Patient in SR on the monitor before and after episode. Instructed to keep monitor on and offered to help patient wash up at bedside. Instructed to call for standby assist when up in room. Verbalized understanding. Patient is currently sleeping in chair in room with call light at hand. Patient request not to be woke up thru the night.
--- NOTE | 2020-07-07 01:07 | NUR ---
Up to bathroom and back to chair at bedside. Uneventful. VSS. Denies feelings of floating at this time. Skin warm and dry. Resting in chair at bedside. Call light at hand.
[2020-07-07 01:15] VITALS: BP 156/90
[2020-07-07 07:00] VITALS: BP 162/85
[2020-07-07] MEDS ORDERED: LEVOTHYROXINE 88 MCG TABLET PO SCH (07:00)
[2020-07-07] MEDS: ASPIRIN ENTERIC COATED 81 MG TABLET.DR. PO SCH (09:32)
[2020-07-07] MEDS: SODIUM BICARBONATE 650 MG TABLET. PO SCH (09:32)
[2020-07-07] MEDS: LACTOBACILLUS RHAMNOSUS GG 1 CAPSULE. PO SCH (09:33)
[2020-07-07] MEDS: LIDOCAINE (700MG/PATCH) PATCH. TD SCH (09:35)
[2020-07-07] MEDS: INSULIN LISPRO 300 UNITS/3 ML VIAL. SQ SCH ×2 (09:37→11:41)
--- NOTE | 2020-07-07 10:42 | PDOC ---
[employer] PROGRESS NOTE Date of Service DOS: DATE: 07/07/20 TIME: 10:34 Chief Complaint Chief Complaint A/P: Syncope and collapse Elevated troponin Diabetes mellitus. Hypertension. Chronic kidney disease. Hypothyroidism History of methicillin-resistant Staphylococcus aureus perineal abscess. History of Present Illness History of Present Illness Mr Stein is a 49-year-old male with past medical history of hypertension, diabetes and hyperlipidemia admitted to the hospital after a syncopal episode at work preceded by shortness of breath. He awoke with left shoulder pain, no loss of bowel or bladder, no tongue biting. He did note shortness of breath and some chest pain. Noted to have an elevated troponin and an elevated D-dimer and ultimately underwent evaluation for a V/Q scan, which was unremarkable and his lower extremity DVT scan also did not reveal any significant DVT. He is not requiring O2. Negative CT head and negative carotid dopplers. Leading up to this he recently had an EGD and colonoscopy 2 days prior to admission where he was noted with some gastritis and esophageal dilation and likely has been scheduled for an outpatient GES. Consults: Cardiology, nephrology 07/05: No overnight events. Awaiting echocardiogram currently. Some right thigh pain and some left shoulder pain. He is short of breath with minimal chest pain today. COVID 19 neg. 07/06: Glucose low. Afebrile. Still short of breath and weak. Stress test negative. TSH > 20. Had some lightheadedness overnight. Glucose stabilized. Free T3 1.42 T4 0.99. On further review with him and his he has been taking pantoprazole and other morning meds along with his levothyroxine. Have counseled him on taking levothyroxine on an empty stomach. Cr improved to 1.5. Thyroid US: Findings: Right thyroid lobe: 3.6 x 1.8 x 1.5 cm. Homogeneous echotexture. Left thyroid lobe: 3.1 x 1.9 x 1.3 cm. Homogeneous echotexture. Isthmus: 0.5 cm. Right thyroid cystic nodule measures 0.5 x 0.4 cm. TI-RADS 1. ACR Thyroid Imaging, Reporting And Data System (TI-RADS): White Paper Of The ACR TI-RADS Committee. Journal of the [employer] [employer], volume 14, issue 5, pages 587-595 (September 2016). IMPRESSION: 1. Small right thyroid cyst. Lexiscan stress test: 1. No EKG evidence of stress-induced ischemia. 2. Nuclear imaging shows no reversible ischemia or infarct. 3. Normal left ventricular systolic function with an ejection fraction of 64%. 4. Low risk Lexiscan nuclear stress test. Vitals/I&O Vitals/I&O: Vital Signs Date Time Temp Pulse Resp B/P (MAP) Pulse Ox O2 Delivery O2 Flow Rate FiO2 07/07/20 07:00 97.6 88 17 162/85 (110) 99 Room Air 97.6 I & O 07/06/20 07/06/20 07/07/20 15:00 23:00 07:00 Intake Total 400 ml 0 ml 500 ml Balance 400 ml 0 ml 500 ml Physical Exam General: Alert, Oriented X3, Cooperative, No acute distress Abdomen: Normal bowel sounds, Soft Extremities: No clubbing, No cyanosis Skin: No rashes Labs Labs: Laboratory Tests Test 07/06/20 16:15 07/07/20 09:18 Glucose (Fingerstick) 63 mg/dL (70-99) 168 mg/dL (70-99) Assessment and Plan Assessmemt and Plan Problems Medical Problems: (1) Elevated d-dimer Status: Acute (2) Elevated troponin Status: Acute (3) Left shoulder strain Status: Acute (4) Suspected 2019 novel coronavirus infection Status: Acute (5) Syncope Status: Acute Comment Review of Relevant I have reviewed the following items isidro (where applicable) has been applied. Medications: Current Medications Medications (Trade) Dose Ordered Sig/Efe Route PRN Reason Start Time Stop Time Status Last Admin Dose Admin Magnesium Sulfate/ Dextrose 100 ml @ 100 mls/hr 1X ONCE IV 07/06/20 17:30 07/06/20 18:29 DC 07/06/20 17:09 Levothyroxine Sodium (Synthroid) 88 mcg DAILY07 PO 07/07/20 07:00 07/07/20 06:32 Dextrose/Sodium Chloride 1,000 ml @ 75 mls/hr 1X ONCE IV 07/06/20 19:00 07/07/20 08:19 DC 07/06/20 19:00 Justifications for Admission Other Justification syncopem elevated troponin FIDENCIO HAGER MD Jul 07, 2020 10:42
--- NOTE | 2020-07-07 10:49 | PDOC3 ---
Discharge Summary Visit Information Date of Admission: Jul 04, 2020 Date of Discharge: Jul 07, 2020 Admitting Diagnosis: Syncope Final Diagnosis Problems Medical Problems: (1) Elevated d-dimer Status: Acute (2) Elevated troponin Status: Acute (3) Left shoulder strain Status: Acute (4) Suspected 2019 novel coronavirus infection Status: Acute (5) Syncope Status: Acute Brief Hospital Course Allergies Allergies Coded Allergies Type Severity Reaction Last Updated Verified GINETTE Inhibitors Allergy Intermediate COUGH 03/31/20 Yes I S O L A T I O N *CONTACT* Allergy Unknown 03/30/20 Yes Vital Signs Vital Signs Date Time Temp Pulse Resp B/P (MAP) Pulse Ox O2 Delivery O2 Flow Rate FiO2 07/07/20 07:00 97.6 88 17 162/85 (110) 99 Room Air 97.6 Lab Results Laboratory Tests Test 07/05/20 12:28 07/05/20 12:30 07/05/20 12:33 07/05/20 13:05 Glucose (Fingerstick) 49 mg/dL (70-99) 48 mg/dL (70-99) 61 mg/dL (70-99) 105 mg/dL (70-99) Test 07/05/20 16:51 07/05/20 21:17 07/06/20 04:40 07/06/20 07:10 Glucose (Fingerstick) 60 mg/dL (70-99) 113 mg/dL (70-99) 76 mg/dL (70-99) Sodium Level 144 mmol/L (136-145) Potassium Level 4.6 mmol/L (3.5-5.1) Chloride Level 110 mmol/L (98-107) Carbon Dioxide Level 23 mmol/L (21-32) Anion Gap 11 (6-14) Blood Urea Nitrogen 29 mg/dL (8-26) Creatinine 1.5 mg/dL (0.7-1.3) Estimated GFR (Cockcroft-Gault) 49.5 Glucose Level 97 mg/dL (70-99) Calcium Level 8.2 mg/dL (8.5-10.1) Magnesium Level 1.7 mg/dL (1.8-2.4) Troponin I Quantitative 0.096 ng/mL (0.000-0.055) Triglycerides Level 282 mg/dL (0-150) Cholesterol Level 146 mg/dL (0-200) LDL Cholesterol, Calculated 63 mg/dL (0-100) VLDL Cholesterol, Calculated 56 mg/dL (0-40) Non-HDL Cholesterol Calculated 119 mg/dL (0-129) HDL Cholesterol 27 mg/dL (40-60) Cholesterol/HDL Ratio 5.4 Thyroid Stimulating Hormone (TSH) 20.997 uIU/mL (0.358-3.74) Free Thyroxine 0.99 ng/dL (0.76-1.46) Free Triiodothyronine (T3) pg/mL 1.42 pg/mL (2.18-3.98) Test 07/06/20 16:15 2 09:18 Glucose (Fingerstick) 63 mg/dL (70-99) 168 mg/dL (70-99) Laboratory Tests Test 07/06/20 16:15 07/07/20 09:18 Glucose (Fingerstick) 63 mg/dL (70-99) 168 mg/dL (70-99) Brief Hospital Course Mr Stein is a 49-year-old male with past medical history of hypertension, diabetes and hyperlipidemia admitted to the hospital after a syncopal episode at work preceded by shortness of breath. He awoke with left shoulder pain, no loss of bowel or bladder, no tongue biting. He did note shortness of breath and some chest pain. Noted to have an elevated troponin and an elevated D-dimer and ultimately underwent evaluation for a V/Q scan, which was unremarkable and his lower extremity DVT scan also did not reveal any significant DVT. He is not requiring O2. Negative CT head and negative carotid dopplers. Leading up to this he recently had an EGD and colonoscopy 2 days prior to admission where he was noted with some gastritis and esophageal dilation and likely has been scheduled for an outpatient GES. Consults: Cardiology, nephrology, neurology 07/05: No overnight events. Echocardiogram currently. Some right thigh pain and some left shoulder pain. He is short of breath with minimal chest pain today. COVID 19 neg. 07/06: Glucose low. Afebrile. Still short of breath and weak. Stress test negative. TSH 20.997. Had some lightheadedness overnight. Glucose stabilized. Free T3 1.42 T4 0.99. On further review with him and his he has been taking pantoprazole and other morning meds along with his levothyroxine. Have counseled him on taking levothyroxine on an empty stomach. Cr improved to 1.5. Likely etiology is symptomatic hypothyroidism with concomitant possible diabetic gastroparesis diabetic polyneuropathy along with some pulmonary hypertension as well which may be related to his hypothyroidism. Thyroid US: Findings: Right thyroid lobe: 3.6 x 1.8 x 1.5 cm. Homogeneous echotexture. Left thyroid lobe: 3.1 x 1.9 x 1.3 cm. Homogeneous echotexture. Isthmus: 0.5 cm. Right thyroid cystic nodule measures 0.5 x 0.4 cm. TI-RADS 1. ACR Thyroid Imaging, Reporting And Data System (TI-RADS): White Paper Of The ACR TI-RADS Committee. Journal of the [employer], volume 14, issue 5, pages 587-595 (September 2016). IMPRESSION: 1. Small right thyroid cyst. Lexiscan stress test: 1. No EKG evidence of stress-induced ischemia. 2. Nuclear imaging shows no reversible ischemia or infarct. 3. Normal left ventricular systolic function with an ejection fraction of 64%. 4. Low risk Lexiscan nuclear stress test. Echocardiogram: The left ventricle is normal size. The left ventricular systolic function is normal and the ejection fraction is within normal range. The Ejection Fraction is 60-65%. Septal motion consistent with conduction abnormality. Doppler and Color Flow revealed no significant aortic regurgitation. There is no significant aortic valvular stenosis. Doppler and Color-flow revealed trace to mild mitral regurgitation. Doppler and Color Flow revealed mild tricuspid regurgitation. The PA pressure was estimated at >55 mmHg. There is a small circumferential pericardial effusion with no hemodynamic significance. Problem list: Syncope and collapse Elevated troponin Diabetes mellitus. Hypertension. Chronic kidney disease. Hypothyroidism History of methicillin-resistant Staphylococcus aureus perineal abscess. Pulmonary hypertension Greater than 30 minutes spent on discharge home with self care with his spouse. Has endocrinology, nephrology, and gastroenterology f/u. Discharge Information Condition at Discharge: Improved Follow Up: Weeks (1) Disposition/Orders: D/C to Home Scheduled Aspirin (Aspir 81) 81 Mg Tablet., 1 TAB PO DAILY, #30 Ref 5 (Reported) Entered as Reported by: JET HELM on 07/21/15 7694 Last Action: Continued on 07/04/20 1130 by DON BAKER MD Hydrochlorothiazide (Hydrochlorothiazide Capsule ) 12.5 Mg Capsule, 12.5 MG PO DAILY for blood pressure, #30 Ref 2 Prescribed by: JUNIOR ALVARENGA on 03/31/20 1247 Last Action: HELD on 07/04/201129 by DON BAKER MD Levothyroxine Sodium (Synthroid) 25 Mcg Tablet, 1 TAB PO DAILY, #30 Ref 5 (Reported) Entered as Reported by: SWAPNIL CASTRO on 06/22/15 0901 Last Action: Continued on 07/04/201129 by DON BAKER MD Linezolid (Zyvox) 600 Mg Tablet, 600 MG PO BID for finger infection, #20 Prescribed by: JUNIOR ALVARENGA on 03/31/20 1236 Last Action: HELD on 07/04/201129 by DON BAKER MD Losartan Potassium (Losartan Potassium) 100 Mg Tablet, 100 MG PO DAILY for HYPERTENSION, (Reported) Entered as Reported by: PERLA RAY on 03/29/20 1247 Last Action: HELD on 07/04/201129 by DON BAKER MD Sodium Bicarbonate (Sodium Bicarbonate) 650 Mg Tablet, 1,300 MG PO BID for renal function, acid level , #60 Ref 1 Prescribed by: JUNIOR ALVARENGA on 03/31/20 1244 Last Action: Continued on 07/04/201129 by DON BAKER MD Scheduled PRN Acetaminophen (Tylenol) 325 Mg Tablet, 2 TAB PO QID PRN for PAIN, #60 Prescribed by: JUNIOR ALVARENGA on 03/31/20 1239 Last Action: Continued on 07/04/201129 by DON BAKER MD Tramadol Hcl (Tramadol Hcl) 50 Mg Tablet, 50 MG PO PRN Q6HRS PRN for PAIN, #20 Prescribed by: JUNIOR ALVARENGA on 03/31/20 1238 Last Action: HELD on 07/04/201129 by DON BAKER MD Miscellaneous Medications Empagliflozin (Jardiance) 10 Mg Tablet, 10 MG PO, (Reported) Entered as Reported by: SWAPNIL CASTRO on 06/22/15 0901 Last Action: HELD on 07/04/201129 by DON BAKER MD Discontinued Medications Lactobacillus Rhamnosus Gg (Culturelle) 1 Each Cap.sprink, 1 CAP PO BID for gut health on antibiotics, #30 Prescribed by: JUNIOR ALVARENGA on 03/31/20 1236 Last Action: Discontinued on 07/04/20 1219 by DON BAKER MD Justicifation of Admission Dx: Justifications for Admission: Justification of Admission Dx: N/A FIDENCIO HAGER MD Jul 07, 2020 10:49
[2020-07-07 11:00] VITALS: BP 157/79
[2020-07-07] MEDS ORDERED: LEVO25TA55 PO (11:03)
--- NOTE | 2020-07-07 12:23 | NUR ---
SW following for discharge planning. Spoke with RN and reviewed chart. Pt to discharge home today, 07/07 self-care. Pt on room air and oral medications. No further SW needs.
[2020-07-07] MEDS ORDERED: LEVOTHYROXINE SODIUM INJ 50 MCG in NORMAL SALINE 5 ML IVP ONE (12:30)
--- NOTE | 2020-07-07 14:16 | PDOC ---
CARDIO Progress Notes Date and Time Date of Service 07/07/2020 Time of Evaluation 1200 Subjective Subjective: No Chest Pain, No shortness of breath, No Palpitations Vitals Vitals Vital Signs Date Time Temp Pulse Resp B/P (MAP) Pulse Ox O2 Delivery O2 Flow Rate FiO2 07/07/20 11:00 97.2 88 17 157/79 (105) 95 Room Air 97.2 Weight Weight [ ] Input and Output Intake and Output Intake and Output 07/07/20 07:00 Intake Total 900 ml Balance 900 ml Intake Oral 900 ml # Voids 3 Laboratory Labs Laboratory Tests Test 07/06/20 16:15 07/07/20 09:18 07/07/20 11:23 Glucose (Fingerstick) 63 mg/dL (70-99) 168 mg/dL (70-99) 133 mg/dL (70-99) Microbiology Micro Microbiology 07/04/20 Blood Culture - Preliminary, Resulted NO GROWTH AFTER 3 DAYS Physical Exam HEENT: Neck Supple W Full Motion Chest: Symmetric LUNGS: Other (diminished bases) Heart: S1S2, RRR (SR) Abdomen: Soft N/T Extremities: No Calf Tenderness Neurology: alert, oriented, follow commands Assessment Assessment 1. Syncope: +for orthostasis with hypothyroidism contributing 2. Mild troponin elevation: possibly demand mediated. MPI unremarkable for ischemia 3. HTN urgency: better 4. DILLON with mild rhabdomyolysis: prerenal. Nephrology following 5. Dyspnea: negative for PE per V/Q. Covid-19 neg. Negative for pneumonia. 6. DM2 with hypoglycemia 7. Pulmonary HTN: PAP >55 mmHg 8. Hypothyroidism: on replacement but has debi taking it protonix. TSH 21 Recommendations 1. Continue secondary prevention measures. Start mechanical compressions 2. Restart home statin as an outpt. 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 Losartan when clear with neprhology 4. Follow up in office and consider outpt ADRIEN w/u Justicifation of Admission Dx: Justifications for Admission: Justification of Admission Dx: N/A ANTONIO GOODMAN APRN Jul 07, 2020 14:16
--- NOTE | 2020-07-07 14:20 | NUR ---
Discharge Note: CORIE CHANG [address] [place] [address] Discharge instructions and discharge home medications reviewed with Patient and a copy given. All questions have been answered and understanding verbalized. The following instructions and handouts were given: discharge instructions, med list, pulm htn info, ortho hypotension info, hypothyroidism info, follow ups, DILLON info, compression stocking/abd binder. Discontinued lines and drains: Peripheral IV intact. Patient discharged to Home or Self Care with Spouse via Wheelchair at 1420.
--- NOTE | 2020-07-07 14:40 | PDOC ---
DATE OF SERVICE DATE: 07/07/20 TIME: 14:39 SUBJECTIVE ROS stable OBJECTIVE Vital Signs Vital Signs Date Time Temp Pulse Resp B/P (MAP) Pulse Ox O2 Delivery O2 Flow Rate FiO2 07/07/20 11:00 97.2 88 17 157/79 (105) 95 Room Air 97.2 I & 0 Intake and Output 07/07/20 07:00 Intake Total 900 ml Balance 900 ml Intake Oral 900 ml # Voids 3 PHYSICAL EXAM Physical Exam General: NAD, sitting up in chair HEENT: OM moist Neck Supple Lungs: Clear to auscultation , Non labored, On RA Heart: RRR, Abdomen: Normal bowel sounds, Soft Extremities: No cyanosis, No edema Neuro: Normal speech, Cranial nerves 3-12 NL Psych/Mental Status: Mental status NL, Mood NL No Griffin, No SP or CVA tenderness DIAGNOSIS/ASSESSMENT Assessment & Plan DILLON - Pre-renal vs CKD , CK mildly elevated Supportive care, avoid nephrotoxins , maintain hydration CKD 3A - DM, HTN Present since 2015 per [facility] records , Stable renal function since , imaging was unremarkable , DILLON on CKD at last hospitalization Follows with us, recent appt with CLINICAL DOCUMENTATION SPECIALIST Diabetes- Well controlled per pt HTN - stable Syncope and collapse History of methicillin-resistant Staphylococcus aureus perineal abscess. COMMENT/RELEVANT DATA Meds Current Medications Medications (Trade) Dose Ordered Sig/Efe Start Time Stop Time Status Last Admin Dose Admin Acetaminophen (Tylenol) 650 mg PRN Q4HRS PRN 07/04/20 12:30 Al Hydroxide/Mg Hydroxide (Mylanta Plus Xs) 30 ml PRN DAILY PRN 07/04/20 12:30 Albuterol Sulfate (Ventolin Neb Soln) 2.5 mg PRN Q4HRS PRN 07/04/20 12:30 Aspirin (Ecotrin) 81 mg DAILY 07/05/20 09:00 07/07/20 09:32 81 MG Dextrose (Dextrose 50%-Water Syringe) 12.5 gm PRN Q15MIN PRN 07/04/20 11:30 07/05/20 12:37 12.5 GM Dextrose/Sodium Chloride 1,000 ml @ 75 mls/hr 1X ONCE 07/06/20 19:00 07/07/20 08:19 DC 07/06/20 19:00 75 MLS/HR Docusate Sodium (Colace) 100 mg PRN BID PRN 07/04/20 12:30 Enoxaparin Sodium (Lovenox 100mg Syringe) 90 mg Q12HR 07/04/20 21:00 07/05/20 10:13 90 MG Enoxaparin Sodium (Lovenox 80mg Syringe) 90 mg BID 07/04/20 21:00 07/04/20 20:49 DC 07/04/20 20:47 80 MG Fentanyl Citrate (Fentanyl 2ml Vial) 50 mcg PRN Q2HR PRN 07/04/20 11:30 07/05/20 10:16 50 MCG Guaifenesin (Robitussin) 200 mg PRN Q4HRS PRN 07/04/20 12:30 Insulin Human Lispro (HumaLOG) 0-5 UNITS TIDWMEALS 07/04/20 17:00 07/07/20 09:37 2 UNITS Lactobacillus Rhamnosus (Culturelle) 1 cap BID 07/04/20 21:00 07/07/20 09:33 1 CAP Levothyroxine Sodium (Synthroid) 88 mcg DAILY07 07/07/20 07:00 07/07/20 06:32 88 MCG Levothyroxine Sodium 50 mcg/ Sodium Chloride 5 ml @ 100 mls/hr 1X ONCE 07/07/20 12:30 07/07/20 12:32 DC 07/07/20 11:50 100 MLS/HR Lidocaine (Lidoderm) 1 patch DAILY 07/05/20 12:00 07/07/20 09:35 1 PATCH Lorazepam (Ativan) 0.5 mg PRN Q4HRS PRN 07/04/20 12:30 Magnesium Sulfate/ Dextrose 100 ml @ 100 mls/hr 1X ONCE 07/06/20 17:30 07/06/20 18:29 DC 07/06/20 17:09 100 MLS/HR Miscellaneous (Lidoderm Patch Removal) 1 ea QHS 07/05/20 21:00 07/06/20 21:00 1 EA Ondansetron HCl (Zofran) 4 mg PRN Q4HRS PRN 07/04/20 12:30 Regadenoson (Lexiscan) 0.4 mg 1X ONCE 07/06/20 10:30 07/06/20 10:31 DC 07/06/20 11:00 0.4 MG Sodium Monofluorophosphate (Fleet Adult) 133 ml PRN DAILY PRN 07/04/20 12:30 Sodium Bicarbonate (Sodium Bicarbonate) 1,300 mg BID 07/04/20 21:00 07/07/20 09:32 1,300 MG Sodium Chloride 1,000 ml @ 100 mls/hr Q10H 07/04/20 12:30 07/06/20 18:58 DC 07/06/20 07:00 100 MLS/HR Sodium Chloride (Normal Saline Flush) 3 ml QSHIFT PRN 07/04/20 12:30 Lab Laboratory Tests Test 07/06/20 16:15 07/07/20 09:18 07/07/20 11:23 Glucose (Fingerstick) 63 mg/dL (70-99) 168 mg/dL (70-99) 133 mg/dL (70-99) Results All relevant outside records, renal labs, imaging studies, telemetry/EKG's were reviewed. Justicifation of Admission Dx: Justifications for Admission: Justification of Admission Dx: N/A MEENA LEONARD MD Jul 07, 2020 14:40
[2020-07-09 11:09] LABS: INSULIN LEVEL 0.8 uIU/mL (2.6-24.9)
== END 2020-07-07 14:20 | disposition home or self-care (01) | DRG 604 ==
LOC: ER 07:00 → ED HOLD 11:05 → 6 SOUTH 14:11
PROVIDERS: ADMIT Family Medicine; ATTEND Family Medicine
DX: S40.012A Contusion of left shoulder, initial encounter (principal); E43 Unspecified severe protein-calorie malnutrition; N17.9 Acute kidney failure, unspecified; M62.82 Rhabdomyolysis; S46.912A Strain of unspecified muscle, fascia and tendon at shoulder and upper arm level, left arm, initial encounter; R77.8 Other specified abnormalities of plasma proteins; R79.89 Other specified abnormal findings of blood chemistry; Z20.822 Contact with and (suspected) exposure to COVID-19; E78.5 Hyperlipidemia, unspecified; E03.9 Hypothyroidism, unspecified; Z86.14 Personal history of Methicillin resistant Staphylococcus aureus infection; I27.20 Pulmonary hypertension, unspecified; Z98.42 Cataract extraction status, left eye; Z98.41 Cataract extraction status, right eye; Z68.32 Body mass index [BMI] 32.0-32.9, adult; N18.30 Chronic kidney disease, stage 3 unspecified; E11.22 Type 2 diabetes mellitus with diabetic chronic kidney disease; I12.9 Hypertensive chronic kidney disease with stage 1 through stage 4 chronic kidney disease, or unspecified chronic kidney disease; W18.39XA Other fall on same level, initial encounter; Y93.89 Activity, other specified; Y92.89 Other specified places as the place of occurrence of the external cause; Y99.8 Other external cause status; Z04.3 Encounter for examination and observation following other accident; Z82.49 Family history of ischemic heart disease and other diseases of the circulatory system; I16.0 Hypertensive urgency; E11.649 Type 2 diabetes mellitus with hypoglycemia without coma; E04.1 Nontoxic single thyroid nodule
CPT/HCPCS: 36415; 70450; 71045; 73030; 76536; 78452; 78580; 80048; 80053; 80061; 81001; 82550; 82553; 82962; 83525; 83605; 83735; 84439; 84443; 84481; 84484; 84681; 85025; 85379; 87040; 93005; 93017; 93306; 93880; 93970; 96361; 96372; 96374; A4565; A9500; A9540; J1650; J1815; J2785; J3010; J3475; J3490; J7030; J7042; U0003; 97110-GP; 99291-25; G0378

== ENCOUNTER → 2020-07-13 | Outpatient (CLI) | payer OTHER ==
[2020-07-07 11:00] VITALS: BP 157/79
--- NOTE | 2020-07-13 11:35 | KCIC ---
EXAM: CT Chest without IV contrast CLINICAL HISTORY: Reason: Weight loss, renal disease, abnormality seen on CT A/P, fatigue. COMPARISON: CT abdomen and pelvis 06/25/2020 TECHNIQUE: CT of the chest without intravenous contrast. Axial, coronal and sagittal reformatted imag es were generated. ---PQRS compliance statement - One or more of the following individualized dose reduction techniques were utilized for this study: 1. Automated exposure control 2. Adjustment of the mA and/or kV according to patient size 3. Use of iterative reconstruction technique--- FINDINGS: Lack of intravenous contrast limits evaluation of solid organs, vasculature, and lymph nodes. Chest: Thyroid is unremarkable. Enlarged mediastinal lymph nodes are seen, for example a 1.6 x 1.3 cm anteri or mediastinal lymph node is seen. No axillary lymphadenopathy. No obvious hilar lymphadenopathy alth ough may be obscured by noncontrast examination. Of note a precarinal lymph node measures 2.1 x 0.8 c m. Heart is not enlarged. Mild pericardial effusion. Coronary and aortic root calcifications are seen. A eufemia is normal in caliber. Small bilateral pleural effusions, greater on the right. No pneumothorax. Multiple groundglass nodules are seen bilaterally, for example in the lingula a 1.7 cm lung nodule is seen. Several solid lung nodules are also seen. For example a 3 mm lingular nodule (series 2 image 58) is s een. 6 mm left lower lobe lung nodule is seen. The middle lobe nodule seen on prior CT abdomen/pelvis measures approximately 1 x 0.7 cm. There is mild interstitial prominence bilaterally. Visualized Upper abdomen: Gallbladder is distended. Mild high density within the gallbladder may repr esent sludge or vicarious excretion of previously administered contrast material. Visualized upper ab domen is otherwise unremarkable. Bones: No aggressive osseous lesion is seen. IMPRESSION: 1. Interval development of pericardial effusion and bilateral pleural effusions with interstitial pr ominence and groundglass opacities in the lung. These may represent changes of pulmonary edema howeve r multifocal infectious/frontal process may also have this appearance. Recommend follow-up CT followi ng resolution of the acute process. 2. 10 x 7 mm middle lobe lung nodule is seen. Follow-up CT following resolution of the acute process is recommended, consider 3 month follow-up unless sooner based on clinical criteria. 3. Distention of the gallbladder may be seen with acute or chronic cholecystitis and can be further assessed by ultrasound if not previously performed. In addition high density within the gallbladder p ossibly from vicarious excretion of previously administered contrast or gallbladder sludge. Electronically signed by: Pilo Weinstein MD (07/13/2020 11:33 AM) [id number]
== END ==
LOC: KCIC CT 10:45
PROVIDERS: ATTEND Physician Assistant
DX: J90 Pleural effusion, not elsewhere classified (principal); R91.1 Solitary pulmonary nodule; N32.89 Other specified disorders of bladder
CPT/HCPCS: 71250

== ENCOUNTER → 2021-05-24 | Outpatient (CLI) | payer OTHER ==
--- NOTE | 2021-05-25 09:14 | KCIC ---
Exam Date: 05/24/2021 8:10 AM US ABDOMEN COMPLETE Indication: Reason: ABD PAIN / Spl. Instructions: / History: . TECHNIQUE: Multiple longitudinal and transverse sonographic images of the abdomen are submitted for interpretation. FINDINGS: The liver is normal in size and echogenicity. The portal vein is patent, with hepatopetal flow. N o focal intrahepatic abnormality is seen. The gallbladder is distended up to 15 x 7 cm and contains gallstones. There is no gallbladder wall t hickening or pericholecystic fluid. There is no biliary ductal dilatation, with the common bile duct measuring 2 mm. The spleen is normal in size and echogenicity. The visualized abdominal aorta, inferior vena cava an d pancreas are within normal limits. There is no upper abdominal ascites. The kidneys are normal in appearance, with the right kidney measuring 11.2 cm and the left kidney measuring 10.6 cm. IMPRESSION: Distended gallbladder with gallstones is nonspecific but could be seen with acute cholecystitis. Cor relate clinically. If clinically indicated, further evaluation with hepatobiliary scan can be perfor med. Electronically signed by: Kendrick Bhandari MD (05/25/2021 9:11 AM) [id number]
== END ==
LOC: KCIC US 08:05
PROVIDERS: ATTEND Family Medicine
DX: K80.80 Other cholelithiasis without obstruction (principal); K82.8 Other specified diseases of gallbladder
CPT/HCPCS: 76700